=== PATIENT | female | born 1975 | race Caucasian/White ===

== ENCOUNTER 2020-12-22 13:04 | Emergency (ER) | payer MEDICAID, SELFPAY ==
[2020-12-22 13:05] VITALS: BP 124/79; PULSE 68; RESP 18; TEMP 36.8; O2SAT 100; BMI 24.7
[2020-12-22] MEDS: Ondansetron 4 MG/2 ML Vial IV (13:44)
[2020-12-22] MEDS: 0.9% Normal Saline 1,000 ML 1000 ML IV (13:44)
--- NOTE | 2020-12-22 13:54 | RAD_ITS ---
STUDY: X-RAY CHEST REASON FOR EXAM: Female, 45 years old. lump right side throat, feels like burning at back of neck, abdominal pain TECHNIQUE: AP COMPARISON: None. FINDINGS: EKG leads project over the chest. The lungs are clear and expanded. There is no demonstrated pleural abnormality. Normal size heart. Normal mediastinum and jennifer. Normal visualized pulmonary arteries. Normal visualized aortic arch and descending thoracic aorta. Normal visualized thoracic spine. Normal visualized ribs, clavicles, and shoulders. There is no demonstrated abnormality of the visualized soft tissue structures of the upper abdomen. RAD/Chest 1 View (Portable) IMPRESSION: Nonacute portable x-ray examination of the chest. Electronically Signed: Nico Burleson MD ([facility]) at 14:05 EST , Service support ,
[2020-12-22 13:57] LABS: Absolute Lymphocyte Count 3.18 X10^3/uL (0.83-4.51); Absolute Neutrophil Count 3.7 X10^3/uL (2.0-7.7); Basophil# 0.04 X10^3/uL; Basophil% 0.5 % (0-1); Eosinophil# 0.28 X10^3/uL; Eosinophils% 3.6 % (0-5); Hematocrit 40.5 % (37-47); Hemoglobin 13.2 g/dL (12.0-15.0); Lymphocyte # 3.18 X10^3/ul (4.0); Lymphocyte % 41.4 % (19-41); Mean Corp Hgb Conc 32.6 g/dL (32-36); Mean Corpuscular Hgb 33.1 pg (27.0-32.0); Mean Corpuscular Volume 101.5 fL (81-99); Mean Platelet Vol. 9.8 fl (6.2-12.0); Monocyte# 0.45 X10^3/uL; Monocyte% 5.9 % (0-10); NRBC Flagged by Analyzer 0 % (0-5); Neutrophil # 3.73 X10^3/uL (2.7-7.7); Neutrophil % 48.5 % (47-70); Platelet Count 291 K/mm3 (150-450); RBC Distribution Width CV 12.1 % (11.6-14.6); RBC Distribution Width SD 45.8 fl (35.1-43.9); Red Blood Count 3.99 M/mm3 (4.2-5.4); White Blood Count 7.7 K/mm3 (4.4-11.0)
[2020-12-22 14:13] LABS: ALB/GLOB Ratio 1.2 RATIO (0.9-2.4); AST(SGOT) 14 U/L (15-37); Alanine Aminotransfer ALT/SGPT 21 U/L (13-56); Albumin, Serum 3.9 g/dL (3.2-5.0); Alkaline Phosphatase 76 U/L (45-117); Anion Gap 4 (5-15); BUN 14 mg/dL (7-18); BUN/Creat Ratio 15.3 RATIO (10-20); Chloride 108 mmol/L (98-107); Creatinine, Serum 0.91 mg/dL (0.55-1.02); EST Glomerular Filtration Rate 70 mL/min (>60); Est Glom Filt Rate - Afr Amer 85 mL/min (>60); Estimated Creatinine Clearance 63.22 ml/min; Globulin 3.3 g/dL (2.2-4.2); Glucose 94 mg/dL (74-106); Lipase 213 U/L (73-393); Potassium 4.1 mmol/L (3.5-5.1); Protein, Total 7.2 g/dL (6.4-8.2); Sodium Level 139 mmol/L (136-145)
--- NOTE | 2020-12-22 14:19 | ED.VISSUMM ---
- ER Visit Summary Date of Service: 12/22/20 Chief Complaint: Cough and pain with swallowing History of Present Illness: The patient is a 45 F with no primary care physician. She reports that she has a cough that been present for the past 2 weeks. Is productive white/yellow sputum without blood. She denies fever or chills. She does report she has had sweats. Patient reports the right side of her throat feels raw. Patient reports that she has had intermittent abdominal pain over the past 2 weeks. She denies any pain at this time. She has been nausea and vomited once today. No blood in her emesis. No diarrhea. She denies any chest pain or shortness of breath. She denies any dysuria or frequency. Physical Examination: Vitals: Stable. Afebrile. General: Well-nourished and well-developed. Head: Normocephalic atraumatic. HEENT: No pharyngeal erythema, tonsillar exudate, or tonsillar enlargement. No cervical lymphadenopathy. Neck: Supple, no lymphadenopathy. No JVD. Nontender. Cardiovascular: Regular rate and rhythm. No murmurs. Respiratory: No respiratory distress. Clear to auscultation bilaterally. Abdominal: Soft, nontender, nondistended, normal bowel sounds. No guarding, rebound, or peritoneal signs. Back: Nontender. Extremities: Nontender, no edema. Skin: Normal color, no rash. Neurologic: Alert and oriented ?3. Cranial nerves II through XII are intact. Normal strength and sensation. Psych: Normal affect. Test Results: CBC shows lymphocytes 41. Chem-7 shows a chloride of 108. LFTs show an AST of 14. Lipase is 213. COVID-19 is negative. Clinical Impression(s) from Imaging Studies Chest X-Ray 12/22/20 13:54 IMPRESSION: Nonacute portable x-ray examination of the chest. Electronically Signed: Nico Burleson MD ([place]) at 14:05 EST , Service support , Emergency Department Course and Treatment: Patient had an IV placed. She was given a liter normal saline. She was given Zofran IV. She is resting comfortably. Treatment Plan: Patient be discharged instructions to follow-up with the [facility] in 1 week if not improving. Return to the emergency department for any worsening symptoms. Disposition: To home in improved and stable condition. Impression: 1. URI. This note was generated with [employer] dictation software. It may contain incorrect words, spelling, and punctuation that were not noted in review of the chart prior to signing ED Disposition - Plan for ED Patient: Instructions: ED URI, Viral, No Abx (Adult) Referrals: Eileen Dooley [NON-STAFF] - 1 Week if not improving
[2020-12-22 15:35] VITALS: BP 150/90; PULSE 63; RESP 16; O2SAT 100
== END 2020-12-22 15:43 | disposition home or self-care (01) ==
LOC: ED 14:13
PROVIDERS: Emergency Provider Emergency Medicine
DX: J06.9 Acute upper respiratory infection, unspecified (principal); Z72.0 Tobacco use
CPT/HCPCS: 71045; 80053; 83690; 85025; 87426; 96361; 96374; 99284; J7030; A4216; J2405

== ENCOUNTER 2025-04-09 16:25 | Emergency (ER) | payer MEDICAID, SELFPAY ==
[2025-04-09 16:27] VITALS: BP 105/85; PULSE 87; RESP 18; TEMP 36.3; O2SAT 99
--- OUTSIDE RECORDS SUMMARY | 2025-04-09 16:46 | XMS RPT_ITS | CCD ---
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 Vick Hobson Primary Care Robyn Smith, Dr. Vick Hobson Attending Robyn Smith, Dr. Vick Hobson Referring Robyn Smith, Dr. Vick Hobson Primary Care Robyn Smith, Dr. Vick Hobson Attending Robyn Smith, Dr. Vick Hobson Referring Robyn Smith, Dr. Vick Hobson Primary Care Robyn Smith, Dr. Vick Hobson Attending Robyn Smith, Dr. Vick Hobson Referring Robyn Pineda, Ms. Eloisa Swenson Primary Care Michell Smith, Dr. Vick Hobson Attending Robyn Pineda, Ms. Eloisa Swenson Primary Care Michell Smith, Dr. Vick Hobson Attending Eloisa Díaz Attending Unavailable Eloisa PINEDA Attending Unavailable DO Josee Sheridan Attending Unavaila Eloisa Estevez Attending Unavailable MI REYES APRN, CNP Primary Care Phys ician MRS. ELOISA PINEDA Attending Unavailable MI REYES APRN, CNP Primary Care U MI Reich APRN, CNP Attending U navMI Butt APRN, CNP Primary Care U MI Reich APRN, CNP Attending U MI Reich APRN, CNP [facility] Medications Current Medications Medication Drug Class(es) Dates Sig (Normalized) Sig (Original) busPIRone hydrochloride 15 mg oral tablet (5 sources) Start: 06-22-2024 take 1 tablet by mouth twice daily busPIRone 15 mg Tab 15 mg = 1 tab(s), Oral, BID, # 60 tab(s), Refills(s) 11, Pharmacy: [id number], 163, cm, 06/22/24 10:44:00 EDT, Height/Length Dosing, 66.2, kg, 06/22/24 10:44:00 EDT, Weight Dosing Start Date: 06/22/24 Status: Ordered Start: 04-23-2023 take 1 tablet by shanna th twice daily busPIRone 15 mg Tab 15 mg = 1 tab(s), Oral, BID, # 60 tab(s), Refills(s) 2, Pharmacy: [id number], 163, cm, 03/17/23 10:47:00 EDT, Height/Length Dosing, 68.9, kg, 03/17/23 10:47:00 EDT, Weight Dosing Start Date: 04/23/23 Status: Ordered clindamycin 300 mg oral capsule (1 source) Lincosamide Antibacterial Start: 03-17-2023 take 1 capsule by mouth every eight hours clindamycin 300 mg oral cap 300 mg = 1 cap(s), Oral, q8hr, # 30 cap(s), Refills(s) 0, Pharmacy: [facility] #[id number], 163, cm, 03/17/23 10:47:00 EDT, Height/Length Dosing, 68.9, kg, 03/17/23 10:47:00 EDT, Weight Dosing Start Date: 03/17/23 Status: Ordered dicyclomine hydrochloride 20 mg oral tablet (1 source) Anticholinergic Start: 08-19-2021 take 1 tablet by mouth every six hours dicyclomine 20 mg oral tablet ; 1 tab(s) orally every 6 hours Quantity: 20 Refills: 0 Ordered: 19-Aug-2021 Vidal oY Start: 19-Aug-2021 Generic Substitution Allowed Comments: May cause drowsiness. Alcohol may intensify this effect. Use care when operating dangerous machinery. Comment on above: May cause drowsiness . Alcohol may intensify this effect. Use care when operating dangerous machinery. gabapentin 300 mg oral capsule (12 sources) Anti-epileptic Agent Start: 04-23-2023 take 1 capsule by mouth twice daily gabapentin 300 mg Cap 300 mg = 1 cap(s), Oral, BID, 30 day supply, # 60 cap(s), Refills(s) 2, Pharmacy: [facility], 163, cm, 03/17/23 10:47:00 EDT, Height/Length Dosing, 68.9, kg, 03/17/23 10:47:00 EDT, Weight Dosing Start Date: 04/23/23 Status: Ordered Start: 02-24-2022 End: 10-17-2022 take 1 capsule by mouth at bedtime Gabapentin 300 MG Oral Capsule TAKE 1 CAPSULE AT BEDTIME. Quantity: 30 Refills: 5 Ordered: 20-Nov-2022 Vick Smith MD Start : 24-Feb-2022 Active hydrOXYzine hydrochloride 50 mg oral tablet (12 sources) Antihistamine Start: 04-23-2023 take 1 tablet by mouth twice daily as needed for anxiety hydrOXYzine hydrochloride 50 mg oral tablet 50 mg = 1 tab(s), Oral, BID, PRN as needed for anxiety, # 60 tab(s), Refills(s) 3, Pharmacy: [facility], 163, cm, 03/17/23 10:47:00 EDT, Height/Length Dosing, 68.9, kg, 03/17/23 10:47:00 EDT, Weight Dosing Start Date: 04/23/23 Status: Ordered Start: 09-25-2021 take 1 tablet by shanna th twice daily for anxiety hydrOXYzine HCl - 50 MG Oral Tablet take 1 tablet by mouth twice a day if needed for anxiety Quantity: 60 Refills: 3 Ordered: 20-Nov-2022 Vick Smith MD Start : 25-Sep-2021 Active levothyroxine sodium 0.075 mg oral tablet (10 sources) l-Thyroxine Start: 09-19-2024 End: 12-18-2024 levothyroxine 75 mcg (0.075 mg) oral tablet Dose : 75 mcg = 1 tab(s), Oral, qDay, # 30 tab(s), 2 Refill(s), Pharmacy: [facility], Hypothyroidism, adult, 158.5, cm, 09/19/24 14:29:00 EST, Height, kg, 09/19/24 14:29:00 EST, Dosing Weight Start Date: 09/19/24 Stop Date: 12/18/24 Status: Ordered Start: 06-22-2024 take 1 tablet by shanna th once daily levothyroxine 50 mcg (0.05 mg) Tab 50 mcg = 1 tab(s), Oral, Daily, # 90 tab(s), Refills(s) 3, Pharmacy: [facility], 163, cm, 06/22/24 10:44:00 EDT, Height/Length Dosing, 66.2, kg, 06/22/24 10:44:00 EDT, Weight Dosing Start Date: 06/22/24 Status: Ordered Start: 07-16-2023 take 1 tablet by shanna th once daily levothyroxine 50 mcg (0.05 mg) Tab 50 mcg = 1 tab(s), Oral, Daily, # 90 tab(s), Refills(s) 3, Pharmacy: [facility], 163, cm, 07/16/23 14:46:00 EDT, Height/Length Dosing, 66.5, kg, 07/16/23 14:46:00 EDT, Weight Dosing Start Date: 07/16/23 Status: Ordered Start: 03-17-2023 take 1 tablet by shanna th once daily levothyroxine 50 mcg (0.05 mg) Tab 50 mcg = 1 tab(s), Oral, Daily, Refills(s) 0 Start Date: 03/17/23 Status: Ordered Start: 11-21-2022 take 1 tablet by shanna th once daily Levothyroxine Sodium 50 MCG Oral Tablet TAKE 1 TABLET DAILY. Quantity: 30 Refills: 5 Ordered: 21-Nov-2022 Vick Smith MD Start : 21-Nov-2022 Active loratadine 10 mg oral tablet (4 sources) Start: 09-17-2022 take 1 tablet by mouth once daily loratadine 10 mg Tab 10 mg = 1 tab(s), Oral, Daily, # 30 tab(s), Refills(s) 11, Pharmacy: [facility] #[id number], 163, cm, 09/17/22 10:34:00 EST, Height/Length Dosing, 65.8, kg, 09/17/22 10:34:00 EST, Weight Dosing Start Date: 09/17/22 Status: Ordered meloxicam 15 mg oral tablet (12 sources) Nonsteroidal Anti-inflammatory Drug Start: 06-22-2024 take 1 tablet by mouth once daily meloxicam 15 mg Tab 15 mg = 1 tab(s), Oral, Daily, # 90 tab(s), Refills(s) 3, Pharmacy: [facility], 163, cm, 06/22/24 10:44:00 EDT, Height/Length Dosing, 66.2, kg, 06/22/24 10:44:00 EDT, Weight Dosing Start Date: 06/22/24 Status: Ordered Start: 07-16-2023 take 1 tablet by shanna th once daily meloxicam 15 mg Tab 15 mg = 1 tab(s), Oral, Daily, # 90 tab(s), Refills(s) 3, Pharmacy: [facility], 163, cm, 07/16/23 14:46:00 EDT, Height/Length Dosing, 66.5, kg, 07/16/23 14:46:00 EDT, Weight Dosing Start Date: 07/16/23 Status: Ordered Start: 09-25-2021 take 1 tablet by shanna th once daily Meloxicam 15 MG Oral Tablet take 1 tablet by mouth once daily Quantity: 30 Refills: 5 Ordered: 20-Nov-2022 Vick Smith MD Start : 25-Sep-2021 Active naproxen 500 mg oral tablet (1 source) Nonsteroidal Anti-inflammatory Drug Start: 08-19-2021 End: 08-28-2021 take 1 tablet by mouth twice daily at mealtime naproxen 500 mg oral tablet ; 1 tab(s) orally 2 times a day x 10 days Quantity: 20 Refills: 0 Ordered: 19-Aug-2021 Vidal Yo Start: 19-Aug-2021 End: 28-Aug-2021 Generic Substitution Allowed Comments: Check with your doctor before becoming .May cause drowsiness or dizziness.Obtain medical advice before taking any non-prescription drugs as some may affect the action of this medication.Take with food or milk. Comment on above: Check with your doctor before becoming p regnant.May cause drowsiness or dizziness.Obtain medical advice before taking any non-prescription drugs as some may affect the action of this medication.Take with food or milk. omeprazole 40 mg delayed release oral capsule (4 sources) Proton Pump Inhibitor Start: 06-22-2024 take 1 capsule by mouth once daily omeprazole 40 mg Cap-DR 40 mg = 1 cap(s), Oral, Daily, # 90 cap(s), Refills(s) 3, Pharmacy: [facility], 163, cm, 06/22/24 10:44:00 EDT, Height/Length Dosing, 66.2, kg, 06/22/24 10:44:00 EDT, Weight Dosing Start Date: 06/22/24 Status: Ordered Start: 07-16-2023 take 1 capsule by [facility] once daily omeprazole 40 mg Cap-DR 40 mg = 1 cap(s), Oral, Daily, # 90 cap(s), Refills(s) 0, Pharmacy: [facility], 163, cm, 07/16/23 14:46:00 EDT, Height/Length Dosing, 66.5, kg, 07/16/23 14:46:00 EDT, Weight Dosing Start Date: 07/16/23 Status: Ordered ondansetron 4 mg disintegrating oral tablet (1 source) Serotonin-3 Receptor Antagonist Start: 08-19-2021 take 1 tablet by mouth every eight hours ondansetron 4 mg oral tablet, disintegrating ; 1 tab(s) orally every 8 hours Quantity: 21 Refills: 0 Ordered: 19-Aug-2021 Vidal Yo Start: 19-Aug-2021 Generic Substitution Allowed rosuvastatin calcium 10 mg oral tablet (6 sources) HMG-CoA Reductase Inhibitor Start: 06-22-2024 take 1 tablet by mouth once daily rosuvastatin 10 mg Tab 10 mg = 1 tab(s), Oral, Daily, # 90 tab(s), Refills(s) 3, Pharmacy: [facility], 163, cm, 06/22/24 10:44:00 EDT, Height/Length Dosing, 66.2, kg, 06/22/24 10:44:00 EDT, Weight Dosing Start Date: 06/22/24 Status: Ordered Start: 07-16-2023 take 1 tablet by shanna th once daily rosuvastatin 10 mg Tab 10 mg = 1 tab(s), Oral, Daily, # 90 tab(s), Refills(s) 3, Pharmacy: [facility], 163, cm, 07/16/23 14:46:00 EDT, Height/Length Dosing, 66.5, kg, 07/16/23 14:46:00 EDT, Weight Dosing Start Date: 07/16/23 Status: Ordered Start: 03-17-2023 take 1 tablet by shanna th once daily rosuvastatin 10 mg Tab 10 mg = 1 tab(s), Oral, Daily, Refills(s) 0 Start Date: 03/17/23 Status: Ordered Start: 11-25-2022 take 1 tablet by shanna th once daily Rosuvastatin Calcium 10 MG Oral Tablet take 1 tablet by mouth once daily Quantity: 30 Refills: 5 Ordered: 25-Nov-2022 Vick Smith MD Start : 25-Nov-2022 Active sertraline 100 mg oral tablet (13 sources) Serotonin Reuptake Inhibitor Start: 06-22-2024 take 1 tablet by mouth once daily sertraline 100 mg Tab 100 mg = 1 tab(s), Oral, Daily, # 90 tab(s), Refills(s) 3, Pharmacy: [facility], 163, cm, 06/22/24 10:44:00 EDT, Height/Length Dosing, 66.2, kg, 06/22/24 10:44:00 EDT, Weight Dosing Start Date: 06/22/24 Status: Ordered Start: 07-16-2023 take 1 tablet by shanna th once daily sertraline 100 mg Tab 100 mg = 1 tab(s), Oral, Daily, Refills(s) 0 Start Date: 07/16/23 Status: Ordered Start: 04-23-2023 take 2 tablets by [facility] once daily sertraline 100 mg Tab 200 mg = 2 tab(s), Oral, Daily, # 60 tab(s), Refills(s) 5, Pharmacy: [facility], 163, cm, 03/17/23 10:47:00 EDT, Height/Length Dosing, 68.9, kg, 03/17/23 10:47:00 EDT, Weight Dosing Start Date: 04/23/23 Status: Ordered Start: 09-17-2022 take 1 tablet by shanna th once daily sertraline 100 mg Tab 100 mg = 1 tab(s), Oral, Daily, # 30 tab(s), Refills(s) 0, Pharmacy: [facility] #[id number], 163, cm, 09/17/22 10:34:00 EST, Height/Length Dosing, 65.8, kg, 09/17/22 10:34:00 EST, Weight Dosing Start Date: 09/17/22 Status: Ordered Start: 09-25-2021 take 1.5 tablets by mouth once daily Sertraline HCl - 100 MG Oral Tablet Take 1.5 tablet by mouth once daily Quantity: 45 Refills: 5 Ordered: 20-Nov-2022 Vick Smith MD Start : 25-Sep-2021 Active Start: 09-25-2021 take 1 tablet by shanna th once daily Sertraline HCl - 100 MG Oral Tablet take 1 tablet by mouth once daily Quantity: 0 Refills: 0 Ordered: 22-Jan-2022 DO Start : 25-Sep-2021 Active Completed/Discontinued Medications Medication Drug Class(es) Dates Sig (Normalized) Sig (Original) [id number] 200 actuat albuterol 0.09 mg/actuat metered dose inhaler (2 sources) beta2-Adrenergic Agonist Start: 09-23-2019 take 2 puff(s) by inhalation every four hours as needed Ventolin HFA 90 mcg/inh inhalation aerosol ; 2 puff(s) inhaled every 4 hours, As Needed Quantity: 1 Refills: 0 Ordered: 03-Oct-2019 Kenisha Crawford Start: 03-Oct-2019 Generic Substitution Allowed Comments: For inhalation only.It is very important that you take or use this exactly as directed. Do not skip doses or discontinue unless directed by your doctor.Obtain medical advice before taking any non-prescription drugs as some may affect the action of this medication.Shake well before use. Comment on above: For inhalation only. It is very important that you take or use this exactly as directed. Do not skip doses or discontinue unless directed by your doctor.Obtain medical advice before taking any non-prescription drugs as some may affect the action of this medication.Shake well before use. Albuterol (Eqv-ProAir HFA) 90 mcg/inh inhalation aerosol (1 source) Start: 09-17-2022 take 8.5 g by inhalation every six hours Albuterol (Eqv-ProAir HFA) 90 mcg/inh inhalation aerosol 180 mcg, 2 puff(s), Inhalation, q6hr Wheezing, 8.5 gm, Refill(s) 0, [facility] #[id number], 163, cm, 09/17/22 10:34:00 EST, Height/Length Dosing, 65.8, kg, 09/17/22 10:34:00 EST, Weight Dosing Start Date: 09/17/22 Status: Ordered benzonatate 200 mg oral capsule (1 source) Non-narcotic Antitussive Start: 09-23-2019 End: 09-29-2019 take 1 capsule by mouth three times daily benzonatate 200 mg oral capsule ; 1 cap(s) orally 3 times a day Quantity: 21 Refills: 0 Ordered: 23-Sep-2019 Kenisha Crawford Start: 23-Sep-2019 End: 29-Sep-2019 Status: Completed Generic Substitution Allowed Comments: May cause drowsiness. Alcohol may intensify this effect. Use care when operating dangerous machinery.Swallow whole. Do not crush. Comment on above: May cause drowsiness . Alcohol may intensify this effect. Use care when operating dangerous machinery.Swallow whole. Do not crush. doxycycline hyclate 100 mg oral capsule (2 sources) Tetracycline-class Drug Start: 09-23-2019 End: 10-09-2019 take 1 capsule by mouth twice daily doxycycline hyclate 100 mg oral capsule ; 1 cap(s) orally 2 times a day Quantity: 14 Refills: 0 Ordered: 03-Oct-2019 Kenisha Crawford Start: 03-Oct-2019 End: 09-Oct-2019 Status: Completed Generic Substitution Allowed Comments: Avoid prolonged or excessive exposure to direct and/or artificial sunlight while taking this medication.Do not take this drug if you are .Finish all this medication unless otherwise directed by prescriber.Medicat ion should be taken with plenty of water. Comment on above: Avoid prolonged or e xcessive exposure to direct and/or artificial sunlight while taking this medication.Do not take this drug if you are .Finish all this medication unless otherwise directed by prescriber.Medication should be taken with plenty of water. ibuprofen 600 mg oral tablet (1 source) Nonsteroidal Anti-inflammatory Drug Start: 09-23-2019 End: 09-29-2019 take 1 tablet by mouth every six hours IBU 600 mg oral tablet ; 1 tab(s) orally every 6 hours Quantity: 28 Refills: 0 Ordered: 23-Sep-2019 Kenisha Crawford Start: 23-Sep-2019 End: 29-Sep-2019 Status: Completed Generic Substitution Allowed Comments: Do not take this drug if you are .It is very important that you take or use this exactly as directed. Do not skip doses or discontinue unless directed by your doctor.May cause drowsiness or dizziness.Obtain medical advice before taking any non-prescription drugs as some may affect the action of this medication.Take with food or milk. Comment on above: Do not take this tashi g if you are .It is very important that you take or use this exactly as directed. Do not skip doses or discontinue unless directed by your doctor.May cause drowsiness or dizziness.Obtain medical advice before taking any non-prescription drugs as some may affect the action of this medication.Take with food or milk. pantoprazole 40 mg delayed release oral tablet (3 sources) Proton Pump Inhibitor Start: 11-20-2022 take 1 tablet by mouth once daily Pantoprazole Sodium 40 MG Oral Tablet Delayed Release TAKE 1 TABLET BY MOUTH EVERY DAY Quantity: 30 Refills: 1 Ordered: 20-Nov-2022 Vick Smith MD Start : 20-Nov-2022 Active predniSONE 20 mg oral tablet (2 sources) Start: 10-03-2019 End: 10-07-2019 take 1 tablet by mouth three times daily at mealtime predniSONE 20 mg oral tablet ; 1 tab(s) orally 3 times a day Quantity: 15 Refills: 0 Ordered: 03-Oct-2019 Kenisha Crawford Start: 03-Oct-2019 End: 07-Oct-2019 Status: Completed Generic Substitution Allowed Comments: It is very important that you take or use this exactly as directed. Do not skip doses or discontinue unless directed by your doctor.Obtain medical advice before taking any non-prescription drugs as some may affect the action of this medication.Take with food or milk. Start: 09-23-2019 End: 09-27-2019 take 1 tablet by mouth three times daily at mealtime predniSONE 20 mg oral tablet ; 1 tab(s) orally 3 times a day Quantity: 15 Refills: 0 Ordered: 23-Sep-2019 Kenisha Crawford Start: 23-Sep-2019 End: 27-Sep-2019 Status: Completed Generic Substitution Allowed Comments: It is very important that you take or use this exactly as directed. Do not skip doses or discontinue unless directed by your doctor.Obtain medical advice before taking any non-prescription drugs as some may affect the action of this medication.Take with food or milk. Comment on above: It is very important that you take or use this exactly as directed. Do not skip doses or discontinue unless directed by your doctor.Obtain medical advice before taking any non-prescription drugs as some may affect the action of this medication.Take with food or milk. Problems Active Problems Problem Classification Problem Date Documented Da te Episodic/Chronic Abdominal pain (3 sources) Abdominal pain; Translations: [Abdominal pain, unspecified site] 08-19-2021 Episodic Alcohol-related disorders (7 sources) Alcoholism; Translations: [Alcohol dependence] Onset: 4 02-04-2021 Chronic Anxiety disorders (12 sources) Generalized anxiety disorder; Translations: [Generalized anxiety disorder] 02-04-2021 Chronic Conditions associated with dizziness or vertigo (4 sources) Dizziness; Translations: [Dizziness and giddiness] Onset: 4 08-19-2021 Episodic Deficiency and other anemia (3 sources) Macrocytic anemia 09-19-2024 Episodic Deficiency and other anemia (2 sources) Nutritional anemia, unspecified; Translations: [Nutritional anemia, unspecified] Onset: 4 Episodic Diseases of mouth; excluding dental (1 source) Mucocele of mouth 03-17-2023 Episodic Disorders of lipid metabolism (1 source) Mixed hyperlipidemia; Translations: [Mixed hyperlipidemia] Chronic Esophageal disorders (6 sources) Gastroesophageal reflux disease without esophagitis; Translations: [Gastro-esophageal reflux disease without esophagitis] Onset: 3 Chronic Gastrointestinal hemorrhage (6 sources) Melena; Translations: [Melena] Onset: 3 Episodic Headache, including migraine (2 sources) Headache, including migraine Onset: 7 Mood disorders (15 sources) Depressive disorder; Translations: [Depressive disorder, not elsewhere classified] Onset: 3 02-04-2021 Chronic Mood disorders (1 source) Mood disorders Onset: 7 Nausea and vomiting (6 sources) Nausea and vomiting; Translations: [Nausea with vomiting, unspecified] Onset: 3 Episodic Nonmalignant breast conditions (19 sources) Lump of upper outer quadrant of breast; Translations: [Lump or mass in breast] Onset: 2 Episodic Nonspecific chest pain (5 sources) Right sided chest pain; Translations: [Chest pain, unspecified] 08-19-2021 Episodic Other acquired deformities (7 sources) Scoliosis deformity of spine; Translations: [Other kyphoscoliosis and scoliosis] Chronic Other connective tissue disease (2 sources) Pain in lower limb; Translations: [Pain in limb] 08-19-2021 Episodic Other connective tissue disease (7 sources) H/O: musculoskeletal disease; Translations: [Personal history of other musculoskeletal disorders] Episodic Other connective tissue disease (3 sources) Cramp in lower limb 09-19-2024 Episodic Other connective tissue disease (2 sources) Cramp and spasm; Translations: [Cramp and spasm] Onset: 4 Episodic Other eye disorders (1 source) Eye / vision finding 03-17-2023 Episodic Other gastrointestinal disorders (3 sources) Heartburn; Translations: [Heartburn] Episodic Other gastrointestinal disorders (2 sources) Constipation, unspecified; Translations: [Constipation, unspecified] Onset: 3 Episodic Other gastrointestinal disorders (4 sources) Constipation 07-16-2023 Episodic Other lower respiratory disease (4 sources) Dyspnea 03-17-2023 Episodic Other nutritional; endocrine; and metabolic disorders (1 source) Overweight in adulthood with body mass index of 25 or more but less than 30; Translations: [Body mass index (BMI) 25.0-25.9, adult] Onset: 3 Episodic Other screening for suspected conditions (not mental disorders or infectious disease) (11 sources) Patient encounter status; Translations: [Screening for lipoid disorders] Onset: 3 Episodic Other skin disorders (1 source) Neck swelling 02-04-2021 Episodic Other upper respiratory disease (7 sources) Allergic rhinitis; Translations: [Allergic rhinitis, unspecified] Onset: 2 Chronic Other upper respiratory infections (4 sources) Chronic sinusitis; Translations: [Chronic sinusitis, unspecified] Onset: 2 Chronic Otitis media and related conditions (1 source) Otitis media and related conditions Onset: 7 Ovarian cyst (7 sources) Cyst of ovary; Translations: [Other and unspecified ovarian cyst] Episodic Residual codes; unclassified (2 sources) Noncompliance with treatment; Translations: [Patient's noncompliance with other medical treatment and regimen due to unspecified reason] Onset: 4 Episodic Residual codes; unclassified (3 sources) Increased body mass index 09-19-2024 Episodic Spondylosis; intervertebral disc disorders; other back problems (13 sources) Degeneration of cervical intervertebral disc; Translations: [Prolapsed cervical intervertebral disc] Onset: 3 02-04-2021 Chronic Spondylosis; intervertebral disc disorders; other back problems (14 sources) Neck pain; Translations: [Cervicalgia] Onset: 3 02-04-2021 Episodic Substance-related disorders (9 sources) Smoker; Translations: [Nicotine dependence] Onset: 3 10-19-2015 Chronic Comment on above: Added secondary to d ocumentation in Social History. Thyroid disorders (16 sources) Acquired hypothyroidism; Translations: [Unspecified acquired hypothyroidism] Onset: 3 Chronic Unclassified (1 source) Muscle spasm of back / M62.830(ICD-9) Onset: 7 Unclassified (1 source) Tobacco use / Z72.0(ICD-9) Onset: 7 Unclassified (2 sources) Acute pharyngitis, unspecified / J02.9(ICD-9) Onset: 7 Unclassified (1 source) Cough / R05(ICD-9) Onset: 7 Unclassified (1 source) Low back pain / M54.5(ICD-9) Onset: 7 Unclassified (2 sources) CHEST PAIN OK TO REG PER PRISCILLA 08-19-2021 Comment on above: CHEST PAIN OK TO REG PER PRISCILLA Unclassified (15 sources) Patient encounter status 09-19-2024 Varicose veins of lower extremity (7 sources) Varicose veins of lower extremity; Translations: [Asymptomatic varicose veins] Episodic Past or Other Problems Problem Classification Problem Date Documented Da te Episodic/Chronic Headache, including migraine (1 source) Headache; Translations: [Headache] Onset: 09-28-2017 Episodic Other lower respiratory disease (1 source) Cough; Translations: [Cough] Onset: 09-28-2017 Episodic Other upper respiratory infections (1 source) Acute pharyngitis, unspecified; Translations: [Acute pharyngitis, unspecified] Onset: 09-28-2017 Episodic Results Test Name Value Interpretation Reference Range Facility US THYROIDon 09-25-2024 US THYROID ORIGINAL EXAMINATION: ULTRASOUND OF THE THYROID WITH COLOR DOPPLER FLOW [id number]/22/2024 11:44 am US THYROID COMPARISON: None TECHNIQUE: This report is based on interpretation of permanently recorded ultrasound images. HISTORY: ORDERING SYSTEM PROVIDED HISTORY: Reason for Exam: enlarged thyroid, difficult swallowing, patient is on thyroid medication by given history FINDINGS: RIGHT lobe: 4.2 x 1.5 x 1.2 cm. Volume 3.5 cc LEFT lobe: 2.1 x 0.7 x 0.7 cm. Volume 0.5 cc Isthmus is 0.1 cm. The gland is mildly heterogeneous throughout. There are innumerable punctate echogenic foci throughout the thyroid many of which have comet tail artifacts. These are considered benign.. Estimated total number of nodules greater than or equal to 1 cm: 0 Both lobes have multiple subcentimeter thyroid nodules of variable composition and echogenicity. These are considered too small for ACR TIRADS characterization and are considered benign by current guidelines. Inferior to the left lobe and adjacent to the left carotid artery there is an ovoid hypoechoic structure of 17 x 5 x 7 mm without central vascularity or a fatty hilum. IMPRESSION: The thyroid is smaller than usual probably in response to long-term thyroid medication. There is mild heterogeneity which may be reflection of previous thyroiditis. Multiple subcentimeter thyroid nodules are not considered suspicious by ACR TIRADS criteria, no follow-up is indicated by current guidelines. There is an ovoid hypoechoic structure adjacent to the left lobe near the large vessels. This is favored to be a lymph node which is statistically likely benign based on short axis measurement and no given history of malignancy in this patient. Evaluate further as clinically warranted. Short-term ultrasound follow-up in 3 months is an option. Interpreted by: Tae Mcclure MD Preliminary Report By: Tae Mcclure MD Electronically signed By Tae Mcclure MD Dictated Date: 09/25/2024 3:44:20 PM Prelim Date: 09/25/2024 3:50:38 PM Sign Date: 09/25/2024 3:50:38 PM Ordering Provider: MI SANTOS Normal [place] B12on 09-22-2024 Cobalamin (Vitamin B12) [Mass/Vol] 445 pg/mL Normal 211-911 [place] Comment on above: Performed By: #### M G, ESR #### [address] [address] #### B12, FOL, THYAB #### [place] [address] ESRon 09-22-2024 Erythrocyte Sed Rate 20 mm/hr Normal 0-30 [facility] Comment on above: Performed By: #### M G, ESR #### [address] [address] #### B12, FOL, THYAB #### [place] [address] FOLon 09-22-2024 Folate 5.82 ng/mL Normal 5.38-24.00 [place] Comment on above: Performed By: #### M G, ESR #### [place] [id number] #### B12, FOL, THYAB #### [place] [address] LABORATORYOrdered By: SYSTEM SYSTEM on 09-22-2024 Cobalamin (Vitamin B12) [Mass/Vol] 445 pg/mL Normal 211 - 911 pg/mL AH ADM SS Folate [Mass/Vol] 5.82 ng/mL Normal 5.38 - 24. 00 ng/mL AH ADM SS Magnesium [Mass/Vol] 2.0 mg/dL Normal 1.8 - 2 .4 mg/dL AO ADM SS Thyroglobulin Ab IA Qn 78 unit/mL High 15 - 60 unit/mL AH ADM SS Comment on above: Interpretive Data: * *Note - New Reference Range in effect 20 TPO Ab IA Qn 3548 unit/mL High 0 - 60 unit/mL AH ADM SS Comment on above: Interpretive Data: * *Note - New Reference Range in effect 20 LABORATORYOrdered By: Tequila Saxena on 09-22-2024 ESR Photometric method (Bld) [Velocity] 20 mm/hr Normal 0 - 30 mm/hr AO Man Heme SS MGon 09-22-2024 Magnesium [Mass/Vol] 2.0 mg/dL Normal 1.8-2.4 [facility] Comment on above: Performed By: #### M G, ESR #### [place] [address] #### B12, [facility], THYAB #### [place] [address] THYABon 09-22-2024 anti-Thyroid Peroxidase 3548 units/ml High 0-60 [place] Comment on above: Result Comment: No te - New Reference Range in effect 20 Performed By: #### M G, ESR #### [place] [address] #### B12, [facility], THYAB #### [place] [address] Thyroglobulin Ab 78 units/ml High 15-60 [place] Comment on above: Result Comment: No te - New Reference Range in effect 20 Performed By: #### M G, ESR #### [place] [address] #### B12, FOL, THYAB #### [place] [address] .Auto Diffon 09-15-2024 Basophil, Absolute 0.1 10 3/mcL Normal 0.0-0.2 [facility] Comment on above: Performed By: #### F T4, CMP, ANEU, TSHR, LIPID, ADIFF, GFR, CBC #### [address] [place] [address] Basophils/100 WBC (Bld) 1.1 % Normal 0.0-2.5 [place] Comment on above: Performed By: #### F T4, CMP, ANEU, TSHR, LIPID, ADIFF, GFR, CBC #### [address] [address] Eosinophil, Absolute 0.3 10 3/mcL Normal 0.0-0.7 [facility] Comment on above: Performed By: #### F T4, CMP, ANEU, TSHR, LIPID, ADIFF, GFR, CBC #### [address] [address] Eosinophils/100 WBC (Bld) 3.2 % Normal 0.0-7.0 [place] Comment on above: Performed By: #### F T4, CMP, ANEU, TSHR, LIPID, ADIFF, GFR, CBC #### [address] [address] Lymphocyte, Absolute 3.8 10 3/mcL Normal 0.9-4.3 [facility] Comment on above: Performed By: #### F T4, CMP, ANEU, TSHR, LIPID, ADIFF, GFR, CBC #### [address] [address] Lymphocytes/100 WBC (Bld) 39.0 % Normal 20.0-40.0 [place] Comment on above: Performed By: #### F T4, CMP, ANEU, TSHR, LIPID, ADIFF, GFR, CBC #### [address] [address] Monocyte, Absolute 0.8 10 3/mcL Normal 0.1-1.4 [facility] Comment on above: Performed By: #### F T4, CMP, ANEU, TSHR, LIPID, ADIFF, GFR, CBC #### [address] [address] Monocytes/100 WBC (Bld) 7.7 % Normal 2.0-13.0 [place] Comment on above: Performed By: #### F T4, CMP, ANEU, TSHR, LIPID, ADIFF, GFR, CBC #### [address] [address] Neutrophils/100 WBC (Bld) 49.0 % Low 50.0-75.0 [place] Comment on above: Performed By: #### F T4, CMP, ANEU, TSHR, LIPID, ADIFF, GFR, CBC #### [place] [address] [place], [place] [address] .GFRon 09-15-2024 GFR 80 ml/min/1.73sqm [facility] Comment on above: Result Comment: GFR Population mean for , Non- Americans Ages 20-29 = 116 mL/min/1.73 sq.m. Ages 30-39 = 107 mL/min/1.73 sq.m. Ages 40-49 = 99 mL/min/1.73 sq.m. Ages 50-59 = 93 mL/min/1.73 sq.m. Ages 60-69 = 85 mL/min/1.73 sq.m. Ages 70+ = 75 mL/min/1.73 sq.m. Chronic Kidney Disease: Less than 60 mL/min/1.73 square meters End Stage Renal Disease: Less than 15 mL/min/1.73 square meters Performed By: #### M G, ESR #### [address] [address] #### B12, FOL, THYAB #### [address] [address] GFR Non- 66 ml/min/1.73sqm [facility] Comment on above: Result Comment: GFR Population mean for , Non- Americans Ages 20-29 = 116 mL/min/1.73 sq.m. Ages 30-39 = 107 mL/min/1.73 sq.m. Ages 40-49 = 99 mL/min/1.73 sq.m. Ages 50-59 = 93 mL/min/1.73 sq.m. Ages 60-69 = 85 mL/min/1.73 sq.m. Ages 70+ = 75 mL/min/1.73 sq.m. Chronic Kidney Disease: Less than 60 mL/min/1.73 square meters End Stage Renal Disease: Less than 15 mL/min/1.73 square meters Performed By: #### M G, ESR #### [address] [address] #### B12, FOL, THYAB #### [place] [address] .NEUABSon 09-15-2024 Neutrophil, Absolute 4.8 10 3/mcL Normal 2.3-8.1 [facility] Comment on above: Performed By: #### F T4, CMP, ANEU, TSHR, LIPID, ADIFF, GFR, CBC #### [place] [id number] CBCon 09-15-2024 Erythrocyte distribution width (RBC) [Ratio] 14.6 % Normal 11.5-15.5 [place] Comment on above: Performed By: #### F T4, CMP, ANEU, TSHR, LIPID, ADIFF, GFR, CBC #### [place] [id number] Hematocrit (Bld) [Volume fraction] 39.9 % Normal 34.0-46.0 [place] Comment on above: Performed By: #### F T4, CMP, ANEU, TSHR, LIPID, ADIFF, GFR, CBC #### [address] [address] Hgb 13.0 G/dL Normal 12.0-16.0 [place] Comment on above: Performed By: #### F T4, CMP, ANEU, TSHR, LIPID, ADIFF, GFR, CBC #### [address] [address] MCH (RBC) [Entitic mass] 34.3 pg High 27.0-33.0 [place] Comment on above: Performed By: #### F T4, CMP, ANEU, TSHR, LIPID, ADIFF, GFR, CBC #### [place] [address] MCHC 32.6 G/dL Normal 32.0-36.0 [place] Comment on above: Performed By: #### F T4, CMP, ANEU, TSHR, LIPID, ADIFF, GFR, CBC #### [address] [address] MCV (RBC) [Entitic vol] 105.2 fL High 80.0-99.0 [place] Comment on above: Performed By: #### F T4, CMP, ANEU, TSHR, LIPID, ADIFF, GFR, CBC #### [address] [address] Platelet 292 10 3/mcL Normal 150-450 [place] Comment on above: Performed By: #### F T4, CMP, ANEU, TSHR, LIPID, ADIFF, GFR, CBC #### [address] [address] Platelet mean volume (Bld) [Entitic vol] 8.5 fL Normal 6.6-10.5 [place] Comment on above: Performed By: #### F T4, CMP, ANEU, TSHR, LIPID, ADIFF, GFR, CBC #### [address] [address] RBC 3.80 10 6/mcL Low 4.10-5.30 [place] Comment on above: Performed By: #### F T4, CMP, ANEU, TSHR, LIPID, ADIFF, GFR, CBC #### [address] [address] WBC 9.8 10 3/mcL Normal 4.5-10.8 [place] Comment on above: Performed By: #### F T4, CMP, ANEU, TSHR, LIPID, ADIFF, GFR, CBC #### [address] [address] CMPon 09-15-2024 Albumin Level 3.6 G/dL Normal 3.5-5.0 [place] Comment on above: Performed By: #### F T4, CMP, ANEU, TSHR, LIPID, ADIFF, GFR, CBC #### [address] [address] Albumin/Globulin [Mass ratio] 1.2 {ratio} Normal 1.1-2.5 [place] Comment on above: Performed By: #### F T4, CMP, ANEU, TSHR, LIPID, ADIFF, GFR, CBC #### [address] [address] ALP [Catalytic activity/Vol] 122 U/L Normal 40-135 [place] Comment on above: Performed By: #### F T4, CMP, ANEU, TSHR, LIPID, ADIFF, GFR, CBC #### [address] [address] ALT [Catalytic activity/Vol] 25 U/L Normal 14-59 [place] Comment on above: Performed By: #### F T4, CMP, ANEU, TSHR, LIPID, ADIFF, GFR, CBC #### [address] [address] AST [Catalytic activity/Vol] 29 U/L Normal 10-40 [place] Comment on above: Performed By: #### F T4, CMP, ANEU, TSHR, LIPID, ADIFF, GFR, CBC #### [address] [address] Bili Total 0.5 mg/dL Normal 0.2-1.0 [place] Comment on above: Result Comment: Use of this assay is not recommended for patients undergoing treatment with eltrombopag due to the potential for falsely elevated results. Performed By: #### F T4, CMP, ANEU, TSHR, LIPID, ADIFF, GFR, CBC #### [address] [address] BUN/Creatinine Ratio 9 ratio Normal 7-27 [facility] Comment on above: Performed By: #### F T4, CMP, ANEU, TSHR, LIPID, ADIFF, GFR, CBC #### [address] [address] Calcium [Mass/Vol] 9.4 mg/dL Normal 8.4-10.2 [facility] Comment on above: Performed By: #### F T4, CMP, ANEU, TSHR, LIPID, ADIFF, GFR, CBC #### [address] [address] Chloride [Moles/Vol] 105 mmol/L Normal 98-107 [facility] Comment on above: Performed By: #### F T4, CMP, ANEU, TSHR, LIPID, ADIFF, GFR, CBC #### [address] [address] CO2 [Moles/Vol] 29 mmol/L Normal 22-29 [place] Comment on above: Performed By: #### F T4, CMP, ANEU, TSHR, LIPID, ADIFF, GFR, CBC #### [address] [address] Creatinine [Mass/Vol] 0.90 mg/dL Normal 0.55-1.02 [facility] Comment on above: Result Comment: Test ing performed on Siemens Dimension EXL analyzer using a modified kinetic Logan technique. Performed By: #### F T4, CMP, ANEU, TSHR, LIPID, ADIFF, GFR, CBC #### [address] [address] Electrolyte Balance 9.0 mEq/L Normal 4.0-15.0 [facility] Comment on above: Performed By: #### F T4, CMP, ANEU, TSHR, LIPID, ADIFF, GFR, CBC #### [address] [address] Globulin 3.1 G/dL Normal [place] Comment on above: Performed By: #### F T4, CMP, ANEU, TSHR, LIPID, ADIFF, GFR, CBC #### [address] [address] Glucose [Mass/Vol] 100 mg/dL Normal 70-105 [facility] Comment on above: Performed By: #### F T4, CMP, ANEU, TSHR, LIPID, ADIFF, GFR, CBC #### [address] [address] Potassium [Moles/Vol] 4.4 mmol/L Normal 3.5-5.1 [facility] Comment on above: Performed By: #### F T4, CMP, ANEU, TSHR, LIPID, ADIFF, GFR, CBC #### [address] [address] Sodium [Moles/Vol] 143 mmol/L Normal 136-145 [facility] Comment on above: Performed By: #### F T4, CMP, ANEU, TSHR, LIPID, ADIFF, GFR, CBC #### [address] [address] Total Protein 6.7 G/dL Normal 6.4-8.2 [place] Comment on above: Performed By: #### F T4, CMP, ANEU, TSHR, LIPID, ADIFF, GFR, CBC #### [address] [address] Urea nitrogen [Mass/Vol] 8 mg/dL Normal 7-18 [place] Comment on above: Performed By: #### F T4, CMP, ANEU, TSHR, LIPID, ADIFF, GFR, CBC #### [address] [address] FT4on 09-15-2024 Free T4 [Mass/Vol] 0.83 ng/dL Normal 0.76-1.46 [facility] Comment on above: Order Comment: Order ed by Discern Performed By: #### M G, ESR #### [address] [address] #### B12, FOL, THYAB #### [address] [address] LABORATORYOrdered By: SYSTEM SYSTEM on 09-15-2024 Albumin BCP dye [Mass/Vol] 3.6 G/dL Normal 3.5 - 5.0 G/dL AO ADM SS Albumin/Globulin [Mass ratio] 1.2 {ratio} Normal 1.1 - 2.5 ratio AO ADM SS ALP [Catalytic activity/Vol] 122 U/L Normal 40 - 135 U/L AO ADM SS ALT With P-5'-P [Catalytic activity/Vol] 25 U/L Normal 14 - 59 U/L AO ADM SS AST With P-5'-P [Catalytic activity/Vol] 29 U/L Normal 10 - 40 U/L AO ADM SS Basophils (Bld) [#/Vol] 0.1 103/mcL Normal 0.0 - 0.2 10^3/mcL AO Workflow SS Basophils/100 WBC (Bld) 1.1 % Normal 0.0 - 2.5 % AO Workflow SS Bilirubin [Mass/Vol] 0.5 mg/dL Normal 0.2 - 1 .0 mg/dL AO ADM SS Comment on above: Interpretive Data: U se of this assay is not recommended for patients undergoing treatment with eltrombopag due to the potential for falsely elevated results. Calcium [Mass/Vol] 9.4 mg/dL Normal 8.4 - 10. 2 mg/dL AO ADM SS Chloride [Moles/Vol] 105 mmol/L Normal 98 - 10 7 mmol/L AO ADM SS CO2 [Moles/Vol] 29 mmol/L Normal 22 - 29 mmol/L AO ADM SS Creatinine [Mass/Vol] 0.90 mg/dL Normal 0.55 - 1.02 mg/dL AO ADM SS Comment on above: Interpretive Data: T esting performed on Siemens Dimension EXL analyzer using a modified kinetic Logan technique. Electrolyte Balance 9.0 mEq/L Normal 4.0 - 15 .0 mEq/L AO ADM SS Eosinophil, Absolute 0.3 103/mcL Normal 0.0 - 0 .7 10^3/mcL AO Workflow SS Eosinophils/100 WBC (Bld) 3.2 % Normal 0.0 - 7.0 % AO Workflow SS Erythrocyte distribution width (RBC) [Ratio] 14.6 % Normal 11.5 - 15.5 % AO Workflow SS Free T4 [Mass/Vol] 0.83 ng/dL Normal 0.76 - 1. 46 ng/dL AO ADM SS GFR/1.73 sq M.predicted among blacks MDRD (S/P/Bld) [Vol rate/Area] 80 ml/min/1.73sqm Invalid Interpretation Code AO Chemistry S Comment on above: Interpretive Data: GFR Population mean for , Non- Americans Ages 20-29 = 116 mL/min/1.73 sq.m. Ages 30-39 = 107 mL/min/1.73 sq.m. Ages 40-49 = 99 mL/min/1.73 sq.m. Ages 50-59 = 93 mL/min/1.73 sq.m. Ages 60-69 = 85 mL/min/1.73 sq.m. Ages 70+ = 75 mL/min/1.73 sq.m. Chronic Kidney Disease: Less than 60 mL/min/1.73 square meters End Stage Renal Disease: Less than 15 mL/min/1.73 square meters GFR/1.73 sq M.predicted among non-blacks MDRD (S/P/Bld) [Vol rate/Area] 66 ml/min/1.73sqm Invalid Interpretation Code AO Chemistry S Comment on above: Interpretive Data: GFR Population mean for , Non- Americans Ages 20-29 = 116 mL/min/1.73 sq.m. Ages 30-39 = 107 mL/min/1.73 sq.m. Ages 40-49 = 99 mL/min/1.73 sq.m. Ages 50-59 = 93 mL/min/1.73 sq.m. Ages 60-69 = 85 mL/min/1.73 sq.m. Ages 70+ = 75 mL/min/1.73 sq.m. Chronic Kidney Disease: Less than 60 mL/min/1.73 square meters End Stage Renal Disease: Less than 15 mL/min/1.73 square meters Globulin 3.1 G/dL Invalid Interpretation Code AO ADM SS Glucose [Mass/Vol] 100 mg/dL Normal 70 - 105 mg/dL AO ADM SS Hematocrit (Bld) [Volume fraction] 39.9 % Normal 34.0 - 46.0 % AO Workflow SS Hemoglobin (Bld) [Mass/Vol] 13.0 G/dL Normal 12.0 - 16.0 G/dL AO Workflow SS Lymphocytes (Bld) [#/Vol] 3.8 103/mcL Normal 0.9 - 4.3 10^3/mcL AO Workflow SS Lymphocytes/100 WBC (Bld) 39.0 % Normal 20.0 - 40.0 % AO Workflow SS MCH (RBC) [Entitic mass] 34.3 pg High 27.0 - 33.0 pg AO Workflow SS MCHC 32.6 G/dL Normal 32.0 - 36.0 G/dL AO Workflow SS MCV (RBC) [Entitic vol] 105.2 fL High 80.0 - 99.0 fL AO Workflow SS Monocytes (Bld) [#/Vol] 0.8 103/mcL Normal 0.1 - 1.4 10^3/mcL AO Workflow SS Monocytes/100 WBC (Bld) 7.7 % Normal 2.0 - 13.0 % AO Workflow SS Neutrophils (Bld) [#/Vol] 4.8 103/mcL Normal 2.3 - 8.1 10^3/mcL AO Workflow SS Neutrophils/100 WBC (Bld) 49.0 % Low 50.0 - 75.0 % AO Workflow SS Platelet mean volume (Bld) [Entitic vol] 8.5 fL Normal 6.6 - 10.5 fL AO Workflow SS Platelets (Bld) [#/Vol] 292 103/mcL Normal 150 - 450 10^3/mcL AO Workflow SS Potassium [Moles/Vol] 4.4 mmol/L Normal 3.5 - 5.1 mmol/L AO ADM SS Protein [Mass/Vol] 6.7 G/dL Normal 6.4 - 8.2 G/dL AO ADM SS RBC (Bld) [#/Vol] 3.80 106/mcL Low 4.10 - 5.3 0 10^6/mcL AO Workflow SS Sodium [Moles/Vol] 143 mmol/L Normal 136 - 145 mmol/L AO ADM SS TSH Qn 6.74 m[IU]/L High 0.36 - 3.74 mcIU/mL AO ADM SS Urea nitrogen [Mass/Vol] 8 mg/dL Normal 7 - 18 mg/dL AO ADM SS Urea nitrogen/Creatinine [Mass ratio] 9 ratio Normal 7 - 27 ratio AO ADM SS WBC (Bld) [#/Vol] 9.8 103/mcL Normal 4.5 - 10.8 10^3/mcL AO Workflow SS LABORATORYOrdered By: Magdiel Hill on 09-15-2024 Cholesterol [Mass/Vol] 205 mg/dL High 0 - 200 mg/dL AO ADM SS Comment on above: Interpretive Data: C holesterol Reference Interval: Less than 200 Desirable 200-239 Borderline high risk 240 and above High risk Cholesterol in HDL [Mass/Vol] 70 mg/dL High 40 - 60 mg/dL AO ADM SS Cholesterol in LDL [Mass/Vol] 112 mg/dL Normal 0 - 130 mg/dL AO ADM SS Triglyceride [Mass/Vol] 117 mg/dL Normal 0 - 150 mg/dL AO ADM SS Comment on above: Interpretive Data: T riglyceride Reference Interval: Less than 150 Normal 150-199 Borderline high risk 200-499 High risk 500 or higher Very high risk LIPIDon 09-15-2024 Cholesterol [Mass/Vol] 205 mg/dL High 0-200 [place] Comment on above: Result Comment: Chol esterol Reference Interval: Less than 200 Desirable 200-239 Borderline high risk 240 and above High risk Performed By: #### M G, ESR #### [place] [address] #### B12, FOL, THYAB #### [address] [address] Cholesterol in HDL [Mass/Vol] 70 mg/dL High 40-60 [place] Comment on above: Performed By: #### Miguel G, ESR #### [place] [address] #### B12, FOL, THYAB #### [address] [address] Cholesterol in LDL [Mass/Vol] 112 mg/dL Normal 0-130 [place] Comment on above: Performed By: #### Miguel G, ESR #### [place] [address] #### B12, FOL, THYAB #### [address] [address] Triglyceride [Mass/Vol] 117 mg/dL Normal 0-150 [place] Comment on above: Result Comment: Trig lyceride Reference Interval: Less than 150 Normal 150-199 Borderline high risk 200-499 High risk 500 or higher Very high risk Performed By: #### M G, ESR #### [place] [address] #### B12, FOL, THYAB #### [address] [address] TSHRon 09-15-2024 TSH Qn 6.74 m[IU]/L High 0.36-3.74 [place] Comment on above: Performed By: #### F T4, CMP, ANEU, TSHR, LIPID, ADIFF, GFR, CBC #### [place] [address] [place], [place] [address] Ambulatory Visit Summaryon 0 06-22-2024 Ambulatory Visit Summary Ambulatory Visit Summary TONYA LAW :1975 Visit Date:06/22/2024 Ambulatory Visit Instructions Your Diagnosis Non-compliance Cervical disc disorder at C5-C6 level with radiculopathy Dizziness and giddiness Constipation Nausea & vomiting Blood in stool GERD (gastroesophageal reflux disease) Hypothyroidism Alcoholism MDD (major depressive disorder), recurrent episode, moderate Smoker Breast cancer screening by mammogram Screening for lipid disorders Screening for iron deficiency anemia Screening for diabetes mellitus Tests Performed MA Mamm Screen w/CAD if perf and 3D Jovanni -- Results Pending -- US Carotid Duplex Bilateral -- Results Pending -- Please visit your patient portal for your results or contact your primary care physician. Your Care Team Attending Physician - Eloisa PINEDA CNP Primary Care Physician - Eloisa PINEDA CNP This Is Your Medications List busPIRone (busPIRone 15 mg Tab) levothyroxine (levothyroxine 50 mcg (0.05 mg) Tab) meloxicam (meloxicam 15 mg Tab) omeprazole (omeprazole 40 mg Cap-DR) rosuvastatin (rosuvastatin 10 mg Tab) sertraline (sertraline 100 mg Tab) [Image Removed: STOP]Stop taking these medications gabapentin (gabapentin 300 mg Cap) Procedures Performed Hysterectomy (2007), Cholecystectomy (1994). Discharge Vitals Heart Rate (Peripheral) 64 Blood Pressure 138/88 Height 163 cm Height 64 in Weight 66.2 kg Weight 145.64 lb BMI 24.92 What to do next Someone Will Contact You Regarding These Appointments [facility] External Ambulatory Referral, Patient choice/referral by family/friend, Gastroenterology, Elton Ferreira in [place], 06/22/24 11:02:00 EDT, Constipation Nausea & vomiting Blood in stool [facility] External Ambulatory Referral, Geographic proximity, Pain Management, [place] area, 06/22/24 11:12:00 EDT, Cervical disc disorder at C5-C6 level with radiculopathy Medications What How Much When Why Instructions Unchanged busPIRone (busPIRone 15 mg Tab) 1 Tablets By Mouth 2 times a day Pickup at [facility] Unchanged levothyroxine (levothyroxine 50 mcg (0.05 mg) Tab) 1 Tablets By Mouth Every day Pickup at [facility] Unchanged meloxicam (meloxicam 15 mg Tab) 1 Tablets By Mouth Every day Pickup at [facility] 181 Unchanged omeprazole (omeprazole 40 mg Cap-DR) 1 Capsules By Mouth Every day GERD (gastroesophageal reflux disease) Pickup at [facility] 181 Unchanged rosuvastatin (rosuvastatin 10 mg Tab) 1 Tablets By Mouth Every day Pickup at [facility] 181 Unchanged sertraline (sertraline 100 mg Tab) 1 Tablets By Mouth Every day Pickup at [facility] 181 Pharmacy Information [facility] 1811: [id number] [place], [place] [id number] [phone] What How Much When Comments Stop Taking gabapentin (gabapentin 300 mg Cap) 1 Capsules By Mouth 2 times a day 30 day supply Allergies No Known Allergies Problems Ongoing - Any problem that you are currently receiving treatment for. Alcoholism Blood in stool Cervical disc disorder at C5-C6 level with radiculopathy Cervical disc herniation Chronic allergic rhinitis Constipation DDD (degenerative disc disease), cervical Dizziness and giddiness GERD (gastroesophageal reflux disease) Hypothyroidism MDD (major depressive disorder), recurrent episode, moderate Nausea & vomiting Non-compliance Smoker Patient Survey You may receive a survey via text or e-mail asking about your office visit. Please share your experience with us by completing your survey. We appreciate your feedback and thank you for choosing us for your care. Normal [facility] Family Medicine Office/Clini c Noteon 06-22-2024 Family Medicine Office/Clinic Note Family Medicine Office/Clinic Note HPI Staff Pt is here today with c/o sharp pain on both sides of her neck and groin area. States the pain shoots up into her head and down her legs. States it feels like her veins are clogged. She does have dizziness at times. She will sometimes feel like shes slipping while standing. Pt is also also c/o SOB, CP and dizziness with exertion. States walking up and down stairs really affects her. She is asking to get her heart checked out. Pt would like to discuss GI referral. States she is always constipated, states the only way she has a BM is if she takes a laxative. She also sees blood in her stool. Dr. Elton Ferreira in [place]. Fasting Labs - Outside orders placed and printed. Mamm - Outside order placed. Pap - Last pap and Hysterectomy in 2007. She is unsure if she has a cervix. History of Present Illness Tonya Law is a 49-year-old female presenting today with multiple complaints. She has a very lengthy history of noncompliance, psychiatric issues, and challenging relationships. I see her sporadically. She lives in [place] but visits this area often to see a friend while her boyfriend is working. She usually never follows through with any of the testing or things I ordered for her complaints. I last saw her in the office in 07/2023 for multiple complaints. She complained of constipation, nausea, vomiting, and blood in stool along with GERD. At that time, I referred her to GI. She obviously never went as today, she is requesting GI referral. I ordered a low-dose CT of her lungs as she's a chronic smoker. She never got that done. Ordered a mammogram and fasting labs back at that 07/2023 visit also and again she never did any of that. She did get a MRI of her cervical spine back in 2020 at [facility] showed degenerative changes at C5-C6 and C6-C7. No significant or severe cervical spinal canal stenosis noted. She has a known history of alcoholism and major depression. She likes to be at home and does not want to go outside. She is currently on buspirone and Zoloft as needed for her psychiatric conditions. Her mood is stable, and she does not feel down, depressed, hopeless, or have thoughts of self-harm. However, she experienced a severe panic attack on her way here and tends to startle easily. She does not feel anxious while listening to her radio at home. She has chronic neck and back pain. She was continued on Mobic and gabapentin and was referred to pain management last year, but it appears she did not follow through with the referral. I never got any consult notes from anybody. She continues to fill her gabapentin sporadically, with the last 30-day supply filled on 07/27/2023 and another on 04/18/2024. She experiences neck pain on both sides, occasionally radiating to her head, described as electric and lightning-like. She also has pain radiating to the front of her thighs, stopping above her knees. She had sciatic nerve pain on the right side last week, which has not fully healed, and she does not have full pressure on the right side. Imaging of her lumbar spine revealed slight scoliosis. She experiences severe neuropathy in her feet but does not believe gabapentin is effective. She takes meloxicam for arthritis. She has a history of hypothyroidism and is on levothyroxine 50 mcg daily. According to her external fill history, she fills the levothyroxine, but not consistently enough to take it daily, sometimes with gaps of up to six months. She reports overall good health but continues to experience similar issues as last year. She does not eat a lot and eats breakfast around noon and dinner at 6 PM with occasional snacking in between. Her diet consists of eggs and toast for breakfast, home-cooked dinners, and occasional snacks. She consumes vegetables and fiber-rich foods, drinks water, and three cups of coffee in the morning. She consumes a couple of cocktails daily. She continues to experience blood in her stool and occasionally uses laxatives, which aid in bowel movements. Her reflux and vomiting have improved since starting medication. She occasionally takes her cholesterol medication. She experiences dizziness to the point where she almost blacks out. She describes it as falling in hole. Review of Systems All other systems are negative except as stated in the HPI. Physical Exam Vitals & Measurements HR: 64(Peripheral) BP: 138/88 SpO2: 100% HT: 64 in HT: 163 cm WT: 66.2 kg WT: 145.64 lb BMI: 24.92 Patient appears well and normal self. Weight is stable. Neck is supple, no masses, no goiters, no cervical adenopathy, no carotid bruit. Neck range of motion is within normal limits in all directions. Lungs are normal. Heart is normal. Paraspinal tenderness is present in the bilateral C4-C7 region. No bony tenderness or step-off is noted. No bilateral lower extremity edema. Deep tendon reflexes are 2 + and equal bilateral patellar. Gait and balance are normal. Grossly neurologically intact. Mental st (more content not included)... Normal [facility] Comment on above: Result Comment: Elec tronically Signed By: Eloisa PINEDA CNP\.johnny\Date and Time Signed: 06/22/24 14:23 EDT\.br\Electronically Co-Signed By: Tamera Vance.johnny\Date and Time Co-Signed: 06/22/24 13:54 EDT Provider Letteron 06-06-2024 Provider Letter Provider Letter June 06, 2024 TONYA DUCK [address] [place] [address] : 1975 Dear Tonya, We have been trying to reach you with no success. It is important that you return our call upon receiving this letter. Also, at the time of your call, please provide us with your current information. Thank you for your prompt attention to this matter. Sincerely, [facility] Patient Educationon 10-20-20 Patient Education Pulmonary Medicine Steps to Quit Smoking Smoking tobacco is the leading cause of preventable . It can affect almost every organ in the body. Smoking puts you and those around you at risk for developing many serious chronic diseases. Quitting smoking can be very challenging. Do not get discouraged if you are not successful the first time. Some people need to make many attempts to quit before they achieve long-term success. Do your best to stick to your quit plan, and talk with your health care provider if you have any questions or concerns. How do I get ready to quit? When you decide to quit smoking, create a plan to help you succeed. Before you quit: ? Pick a date to quit. Set a date within the next 2 weeks to give you time to prepare. ? Write down the reasons why you are quitting. Keep this list in places where you will see it often. ? Tell your family, friends, and co-workers that you are quitting. Support from people you are close to can make quitting easier. ? Talk with your health care provider about your options for quitting smoking. ? Find out what treatment options are covered by your health insurance. ? Identify people, places, things, and activities that make you want to smoke (triggers). Avoid them. What first steps can I take to quit smoking? ? Throw away all cigarettes at home, at work, and in your car. ? Throw away smoking accessories, such as ashtrays and lighters. ? Clean your car. Make sure to empty the ashtray. ? Clean your home, including curtains and carpets. What strategies can I use to quit smoking? Talk with your health care provider about combining strategies, such as taking medicines while you are also receiving in-person counseling. Using these two strategies together makes you more likely to succeed in quitting than if you used either strategy on its own. If you are or , talk with your health care provider about finding counseling or other support strategies to quit smoking. Do not take medicine to help you quit smoking unless your health care provider tells you to. Quit right away ? Quit smoking completely, instead of gradually reducing how much you smoke over a period of time. Stopping smoking right away may be more successful than gradually quitting. ? Attend in-person counseling to help you build problem-solving skills. You are more likely to succeed in quitting if you attend counseling sessions regularly. Even short sessions of 10 minutes can be effective. Take medicine You may take medicines to help you quit smoking. Some medicines require a prescription. You can also purchase [id number]-[id number] medicines. Medicines may have nicotine in them to replace the nicotine in cigarettes. Medicines may: ? Help to stop cravings. ? Help to relieve withdrawal symptoms. Your health care provider may recommend: ? Nicotine patches, gum, or lozenges. ? Nicotine inhalers or sprays. ? Non-nicotine medicine that you take by mouth. Find resources Find resources and support systems that can help you quit smoking and remain smoke-free after you quit. These resources are most helpful when you use them often. They include: ? Online chats with a counselor. ? Telephone quitlines. ? Printed self-help materials. ? Support groups or group counseling. ? Text messaging programs. ? Mobile phone apps or applications. Use apps that can help you stick to your quit plan by providing reminders, tips, and encouragement. Examples of free services include Quit Guide from the CDC and smokefree.gov What can I do to make it easier to quit? ? Reach out to your family and friends for support and encouragement. Call telephone quitlines, such as 1-889-TVQA-NOW, reach out to support groups, or work with a counselor for support. ? Ask people who smoke to avoid smoking around you. ? Avoid places that trigger you to smoke, such as bars, parties, or smoke-break areas at work. ? Spend time with people who do not smoke. ? Lessen the stress in your life. Stress can be a smoking trigger for some people. To lessen stress, try: ? Exercising regularly. ? Doing deep-breathing exercises. ? Doing yoga. ? Meditating. What benefits will I see if I quit smoking? Over time, you should start to see positive results, such as: ? Improved sense of smell and taste. ? Decreased coughing and sore throat. ? Slower heart rate. ? Lower blood pressure. ? Clearer and healthier skin. ? The ability to breathe more easily. ? Fewer sick days. Summary ? Quitting smoking can be very challenging. Do not get discouraged if you are not successful the first time. Some people need to make many attempts to quit before they achieve long-term success. ? When you decide to quit smoking, create a plan to help you succeed. ? Quit smoking right away, not slowly over a period of time. ? Find resources and support systems that can help you quit smoki (more content not included)... Normal [facility] Insurance Correspondenceon 1 Insurance Correspondence [id number]. [id number] [facility] Provider Letteron 07-28-2023 Provider Letter July 21, 2023 TONYA LAW [address] [place] [id number] : 1975 Dear Tonya , We have been trying to reach you with no success. It is important that you return our call regarding your referral to our office by Katelyn upon receiving this letter. Also, at the time of your call, please provide us with your current information. Thank you for your prompt attention to this matter. Sincerely, [facility] [phone] Unable to contact letter has come back twice stating Not Deliverable as Addressed Address matches in registration to what is attempted to be mailed out. [facility] Family Medicine Office/Clini c Noteon 07-22-2023 Family Medicine Office/Clinic Note Chief Complaint Routine f/u HPI Staff Cervical DDD - Med agreement due at next routine f/u. Pt is c/o pain/ache in her right chest area through to her back, states she is SOB at times. States she is nauseous every morning when she wakes up. Vomits bile in the morning. Pt is asking for imaging of her lungs. Refills - Levothyroxine, Mobic, Rosuvastatin. Mamm - Has been over a year, last done [place]. Order is in, pt will schedule at check out to have done at [facility]. Pap - Hysterectomy 2007 Colon Cancer Screen - Pt has bloody stool on occasion, would like GI referral. Fasting Labs - Will have fasting labs done with her Mamm. CMP, Lipids and TSH ordered. The standard range for ages 18 and older is >=18.5 and < 25 kg/m2. Your BMI today was above this range, this falls in the overweight to obese category and there are medical benefits to weight loss. We can offer counselling, referral, and/or medical support in addressing this problem. Your BMI and weight management will be followed at subsequent visits. We strongly recommend to quit tobacco use. Cigarette smoking harms nearly every organ of the body, causes many diseases, and reduces the health of smokers in general. Quitting smoking lowers your risk for smoking-related diseases and can add years to your life. We encourage you to visit www.smokefree.gov access to helpful resources including free telephone support. If you decide on prescription treatment to help you quit, we would be happy to provide these. History of Present Illness Tonya Law presents today with complaints of chest pressure, shortness of breath, and nausea. I saw her in 03/2023. She had multiple complaints at that time and needed refills of a lot of medications. I had not seen her prior to this since 03/2021. She was supposed to return for a 2-month follow-up, but did not. She is requesting a GI referral today. The patient states that when she stands up, she gets a shock and her legs will go down. She gets dizzy and she walks in the bynum for no reason. It is all on the right side of her chest and torso, and it radiates through the back. She states that it duncan throughout the whole middle back. She states that there is something under her armpit. her arm cramps up really bad like she is having a heart attack. She states that she has been coughing up phlegm. She has smoked for over 30 years, and usually smokes 1 pack a day. Now, she has cut back to a half a pack of cigarettes a day. The patient states that her neck is bothering her more than normal. She feels like she is congested, but she is not congested. She gets short of breath sometimes. If she stands up and goes to walk, everything gets real dizzy and then it starts going black. She denies wheezing and chest pain on the left side. The patient states that her hemorrhoids are out of control. She has not been able to use the bathroom right. On occasion, it will come out and it will be full of blood. She is constipated. The patient states that she vomits every morning. She states that there is so much yellow acid that it is horrible. She will not feel better until she gets up. She states that she has heartburn at night and then she ends up vomiting. She cannot sleep in her bed because she has to sit up. The patient states that she has restless legs. She is kicking. It is mostly at night when she gets all of the aches. She states that this is constant. Her lower back just started kicking out. She states that she was put on Mobic and it started feeling better. She states that she started cracking it. She has degenerative disc in her neck with a herniated disc. It was found 2.5 years ago. She did not see pain management and get epidurals. She would like to see pain management for her neck and maybe discuss about getting an epidural injection. She states that she has been smoking CBD and it helps. She cuts the Zoloft in half. She takes her gabapentin, thyroid, and cholesterol medications, and BuSpar on occasion. Review of Systems All other systems are negative except as stated in the HPI. Physical Exam Vitals & Measurements HR: 69(Peripheral) BP: 126/87 SpO2: 100% HT: 64 in HT: 163 cm WT: 66.5 kg WT: 146.3 lb BMI: 25.03 Vital signs within normal limits x4. General: Well developed, well nourished, in no acute distress Lungs: Normal respiratory effort and clear to auscultation. Good air expansion. No crackles, wheezing, or rhonchi. Cardio: Regular rate and rhythm, normal S1 and S2, no murmur, no rub Abdomen: Soft, nontender. No hepatosplenomegaly. Musculoskeletal: Patient has reproducible right-sided chest pain at the costovertebral junction between 2nd and 4th right-sided ribs. Also cervical paraspinal tenderness significant at the C4-C7 region. No bony tenderness or step-off noted. Neck crepitus with range of motion is noted. Range of motion, however, is normal. Right-sided hand grasp is 50% as strong as the left. Extremity: No bilateral lower extremity edema. Mental Status: (more content not included)... Normal [facility] Comment on above: Result Comment: Elec tronically Signed By: Eloisa PINEDA CNP\.br\Date and Time Signed: 07/22/23 12:52 EDT\.br\Electronically Co-Signed By: Raymond Velázquez\.br\Date and Time Co-Signed: 07/16/23 18:23 EDT Ambulatory Visit Summaryon 0 07-16-2023 Ambulatory Visit Summary SIRISHA TONYA M :1975 Visit Date:07/16/2023 Ambulatory Visit Instructions Your Diagnosis DDD (degenerative disc disease), cervical Cervical disc disorder at C5-C6 level with radiculopathy Nausea & vomiting Constipation Blood in stool GERD (gastroesophageal reflux disease) Smoker BMI 25.0-25.9,adult Breast cancer screening by mammogram Your Care Team Attending Physician - Eloisa PINEDA CNP Primary Care Physician - Eloisa PINEDA CNP This Is Your Medications List levothyroxine (levothyroxine 50 mcg (0.05 mg) Tab) meloxicam (meloxicam 15 mg Tab) omeprazole (omeprazole 40 mg Cap-DR) rosuvastatin (rosuvastatin 10 mg Tab) Contact prescribing physician if questions or concerns busPIRone (busPIRone 15 mg Tab) gabapentin (gabapentin 300 mg Cap) hydrOXYzine (hydrOXYzine hydrochloride 50 mg oral tablet) sertraline (sertraline 100 mg Tab) Procedures Performed Hysterectomy (2007), Cholecystectomy (1994). Discharge Vitals Heart Rate (Peripheral) 69 Blood Pressure 126/87 Height 163 cm Height 64 in Weight 66.5 kg Weight 146.3 lb BMI 25.03 What to do next Scheduled Follow-Up Appointments Thursday 11:45 AM EDT With: Where: [facility] 2022 2:20 PM EDT With: Eloisa PINEDA CNP Where: [facility] Patient Educationon 07-16-20 Patient Education Gastroenterology Obesity, Adult Obesity is having too much body fat. Being obese means that your weight is more than what is healthy for you. BMI (body mass index) is a number that explains how much body fat you have. If you have a BMI of 30 or more, you are obese. Obesity can cause serious health problems, such as: ? Stroke. ? Coronary artery disease (CAD). ? Type 2 diabetes. ? Some types of cancer. ? High blood pressure (hypertension). ? High cholesterol. ? Gallbladder stones. Obesity can also contribute to: ? Osteoarthritis. ? Sleep apnea. ? Infertility problems. What are the causes? ? Eating meals each day that are high in calories, sugar, and fat. ? Drinking a lot of drinks that have sugar in them. ? Being born with genes that may make you more likely to become obese. ? Having a medical condition that causes obesity. ? Taking certain medicines. ? Sitting a lot (having a sedentary lifestyle). ? Not getting enough sleep. What increases the risk? ? Having a family history of obesity. ? Living in an area with limited access to: ? [place], recreation centers, or sidewalks. ? Healthy food choices, such as grocery stores and [place]. What are the signs or symptoms? The main sign is having too much body fat. How is this treated? Treatment for this condition often includes changing your lifestyle. Treatment may include: ? Changing your diet. This may include making a healthy meal plan. ? Exercise. This may include activity that causes your heart to beat faster (aerobic exercise) and strength training. Work with your doctor to design a program that works for you. ? Medicine to help you lose weight. This may be used if you are not able to lose one pound a week after 6 weeks of healthy eating and more exercise. ? Treating conditions that cause the obesity. ? Surgery. Options may include gastric banding and gastric bypass. This may be done if: ? Other treatments have not helped to improve your condition. ? You have a BMI of 40 or higher. ? You have life-threatening health problems related to obesity. Follow these instructions at home: Eating and drinking ? Follow advice from your doctor about what to eat and drink. Your doctor may tell you to: ? Limit fast food, sweets, and processed snack foods. ? Choose low-fat options. For example, choose low-fat milk instead of whole milk. ? Eat five or more servings of fruits or vegetables each day. ? Eat at home more often. This gives you more control over what you eat. ? Choose healthy foods when you eat out. ? Learn to read food labels. This will help you learn how much food is in one serving. ? Keep low-fat snacks available. ? Avoid drinks that have a lot of sugar in them. These include soda, fruit juice, iced tea with sugar, and flavored milk. ? Drink enough water to keep your pee (urine) pale yellow. ? Do not go on fad diets. Physical activity ? Exercise often, as told by your doctor. Most adults should get up to 150 minutes of moderate-intensity exercise every week.Ask your doctor: ? What types of exercise are safe for you. ? How often you should exercise. ? Warm up and stretch before being active. ? Do slow stretching after being active (cool down). ? Rest between times of being active. Lifestyle ? Work with your doctor and a food expert (dietitian) to set a weight-loss goal that is best for you. ? Limit your screen time. ? Find ways to reward yourself that do not involve food. ? Do not drink alcohol if: ? Your doctor tells you not to drink. ? You are , may be , or are planning to become . ? If you drink alcohol: ? Limit how much you have to: ? 0?1 drink a day for women. ? 0?2 drinks a day for men. ? Know how much alcohol is in your drink. In the [place] one drink equals one 12 oz bottle of beer (355 mL), one 5 oz glass of wine (148 mL), or one 1? oz glass of hard liquor (44 mL). General instructions ? Keep a weight-loss journal. This can help you keep track of: ? The food that you eat. ? How much exercise you get. ? Take eine-jdm-rkjjymf and prescription medicines only as told by your doctor. ? Take vitamins and supplements only as told by your doctor. ? Think about joining a support group. ? Pay attention to your mental health as obesity can lead to depression or self esteem issues. ? Keep all follow-up visits. Contact a doctor if: ? You cannot meet your weight-loss goal after you have changed your diet and lifestyle for 6 weeks. ? You are having trouble breathing. Summary ? Obesity is having too much body fat. ? Being obese means that your weight is more than what is healthy for you. ? Work with your doctor to set a weight-loss goal. ? Get regular exercise as told by your doctor. This information is not intended to replace advice given to you by your health care provider. Make sure you discuss any questions you have with yo (more content not included)... Normal [facility] CBC AND DIFFERENTIALon 11-20 % AUTOMATED IMMATURE GRAN 0.2 % Normal 0.0 - 0.9 [facility] Comment on above: Result Comment: Anayeli ture Granulocyte Count (IG) includes promyelocytes, myelocytes and metamyelocytes but does not include bands. Percent differential counts (%) should be interpreted in the context of the absolute cell counts (cells/L). Performed By: #### C BCDF #### [address] [id number] Basophils (Bld) [#/Vol] 0.06 10*3/uL Normal 0.00 - 0.10 [facility] Comment on above: Performed By: #### C BCDF #### [address] [id number] Basophils/100 WBC (Bld) 0.7 % Normal 0.0 - 2.0 [facility] Comment on above: Performed By: #### C BCDF #### [address] [id number] Eosinophils (Bld) [#/Vol] 0.33 10*3/uL Normal 0.00 - 0.70 [facility] Comment on above: Performed By: #### C BCDF #### [address] [id number] Eosinophils/100 WBC (Bld) 3.7 % Normal 0.0 - 6.0 [facility] Comment on above: Performed By: #### C BCDF #### [address] [id number] Erythrocyte distribution width (RBC) [Ratio] 14.1 % Normal 11.5 - 14.5 [facility] Comment on above: Performed By: #### C BCDF #### [address] [id number] Hematocrit (Bld) [Volume fraction] 38.7 % Normal 36.0 - 46.0 [facility] Comment on above: Performed By: #### C BCDF #### [address] [id number] Hemoglobin (Bld) [Mass/Vol] 12.5 g/dL Normal 12.0 - 16.0 [facility] Comment on above: Performed By: #### C BCDF #### [address] [id number] Lymphocytes (Bld) [#/Vol] 3.59 10*3/uL Normal 1.20 - 4.80 [facility] Comment on above: Performed By: #### C BCDF #### [address] [id number] Lymphocytes/100 WBC (Bld) 40.1 % Normal 13.0 - 44.0 [facility] Comment on above: Performed By: #### C BCDF #### [address] [id number] MCHC (RBC) [Mass/Vol] 32.3 g/dL Normal 32.0 - 36.0 [facility] Comment on above: Performed By: #### C BCDF #### [address] [id number] MCV (RBC) [Entitic vol] 101 fL High 80 - 100 [facility] Comment on above: Performed By: #### C BCDF #### [address] [id number] Monocytes (Bld) [#/Vol] 0.72 10*3/uL Normal 0.10 - 1.00 [facility] Comment on above: Performed By: #### C BCDF #### [address] [id number] Monocytes/100 WBC (Bld) 8.0 % Normal 2.0 - 10.0 [facility] Comment on above: Performed By: #### C BCDF #### [address] [id number] Neutrophils (Bld) [#/Vol] 4.24 10*3/uL Normal 1.20 - 7.70 [facility] Comment on above: Performed By: #### C BCDF #### [address] [id number] Neutrophils/100 WBC (Bld) 47.3 % Normal 40.0 - 80.0 [facility] Comment on above: Performed By: #### C BCDF #### [address] [id number] Platelets (Bld) [#/Vol] 351 10*3/uL Normal 150 - 450 [facility] Comment on above: Performed By: #### C BCDF #### [address] [id number] RBC 3.84 x10E12/L Low 4.00 - 5.20 [facility] Comment on above: Performed By: #### C BCDF #### [address] [id number] WBC (Bld) [#/Vol] 9.0 10*3/uL Normal 4.4 - 11.3 [facility] Comment on above: Performed By: #### C BCDF #### [address] [id number] COMPREHENSIVE PANELon 2022 Albumin [Mass/Vol] 4.6 g/dL Normal 3.4 - 5.0 [facility] Comment on above: Performed By: #### C MP #### [address] [place] [id number] ALP [Catalytic activity/Vol] 73 U/L Normal 33 - 110 [facility] Comment on above: Performed By: #### C MP #### [address] [id number] ALT [Catalytic activity/Vol] 12 U/L Normal 7 - 45 [facility] Comment on above: Result Comment: Jordana ents treated with Sulfasalazine may generate falsely decreased results for ALT. Performed By: #### C MP #### [address] [id number] Anion gap [Moles/Vol] 11 mmol/L Normal 10 - 20 [facility] Comment on above: Performed By: #### C MP #### [address] [id number] AST [Catalytic activity/Vol] 21 U/L Normal 9 - 39 [facility] Comment on above: Performed By: #### C MP #### [address] [id number] Bilirubin [Mass/Vol] 0.3 mg/dL Normal 0.0 - 1.2 [facility] Comment on above: Performed By: #### C MP #### [address] [id number] Calcium [Mass/Vol] 9.6 mg/dL Normal 8.6 - 10.3 [facility] Comment on above: Performed By: #### C MP #### [address] [id number] Chloride [Moles/Vol] 102 mmol/L Normal 98 - 107 [facility] Comment on above: Performed By: #### C MP #### [address] [id number] Creatinine [Mass/Vol] 0.92 mg/dL Normal 0.50 - 1.05 [facility] Comment on above: Performed By: #### C MP #### [address] [id number] GFR/1.73 sq M.predicted among non-blacks MDRD (S/P/Bld) [Vol rate/Area] 76 mL/min/{1.73_m2} Normal >90 [facility] Comment on above: Result Comment: CALC ULATIONS OF ESTIMATED GFR ARE PERFORMED USING THE 2020 CKD-EPI STUDY REFIT EQUATION WITHOUT THE RACE VARIABLE FOR THE IDMS-TRACEABLE CREATININE METHODS. https://jasn.asnjournals.org/content/early/ASN.988401 2994 Performed By: #### C MP #### [address] [id number] Glucose [Mass/Vol] 97 mg/dL Normal 74 - 99 [facility] Comment on above: Performed By: #### C MP #### [address] [id number] HCO3 (Bld) [Moles/Vol] 29 mmol/L Normal 21 - 32 [facility] Comment on above: Performed By: #### C MP #### [address] [id number] Potassium [Moles/Vol] 4.2 mmol/L Normal 3.5 - 5.3 [facility] Comment on above: Performed By: #### C MP #### [address] [id number] Protein [Mass/Vol] 7.3 g/dL Normal 6.4 - 8.2 [facility] Comment on above: Performed By: #### C MP #### [address] [id number] Sodium [Moles/Vol] 138 mmol/L Normal 136 - 145 [facility] Comment on above: Performed By: #### C MP #### [address] [id number] Urea nitrogen [Mass/Vol] 13 mg/dL Normal 6 - 23 [facility] Comment on above: Performed By: #### C MP #### [address] [id number] Complete Blood Count + Diffjanak mcbride 11-20-2022 Basophils/100 WBC (Bld) 0.7 % 0.0 - 2.0 [facility] Work Phone: Erythrocyte distribution width (RBC) [Ratio] 14.1 % See Below [facility] Work Phone: Comment on above: Reference Range: 11. 5 - 14.5 Hematocrit (Bld) [Volume fraction] 38.7 % See Below [facility] Work Phone: Comment on above: Reference Range: 36. 0 - 46.0 Hemoglobin (Bld) [Mass/Vol] 12.5 g/dL See Below [facility] Work Phone: Comment on above: Reference Range: 12. 0 - 16.0 Lymphocytes/100 WBC (Bld) 40.1 % See Below [facility] Work Phone: Comment on above: Reference Range: 13. 0 - 44.0 MCHC (RBC) [Mass/Vol] 32.3 g/dL See Below [facility] 100 Work Phone: Comment on above: Reference Range: 32. 0 - 36.0 MCV (RBC) [Entitic vol] 101 fL above high threshold 80 - 100 [facility] Work Phone: Monocytes/100 WBC (Bld) 8.0 % 2.0 - 10.0 [facility] Work Phone: Neutrophils/100 WBC (Bld) 47.3 % See Below [facility] Work Phone: Comment on above: Reference Range: 40. 0 - 80.0 Platelets (Bld) [#/Vol] 351 10*3/uL 150 - 450 [facility] Work Phone: RBC (Bld) [#/Vol] 3.84 {x10E12/L} below low threshold See Below [facility] Work Phone: Comment on above: Reference Range: 4.0 0 - 5.20 WBC (Bld) [#/Vol] 9.0 10*3/uL 4.4 - 11.3 [facility] Work Phone: Complete Blood Count + Differential 0.06 {x10E9/L} See Below [facility] Work Phone: Comment on above: Reference Range: 0.0 0 - 0.10 Complete Blood Count + Differential 0.33 {x10E9/L} See Below [facility] Work Phone: Comment on above: Reference Range: 0.0 0 - 0.70 Complete Blood Count + Differential 0.72 {x10E9/L} See Below [facility] Work Phone: Comment on above: Reference Range: 0.1 0 - 1.00 Complete Blood Count + Differential 3.59 {x10E9/L} See Below [facility] Work Phone: Comment on above: Reference Range: 1.2 0 - 4.80 Complete Blood Count + Differential 4.24 {x10E9/L} See Below [facility] Work Phone: Comment on above: Reference Range: 1.2 0 - 7.70 Complete Blood Count + Differential 3.7 % 0.0 - 6.0 [facility] Work Phone: Complete Blood Count + Differential 0.2 % 0.0 - 0.9 [facility] Work Phone: Comment on above: Immature Granulocyte Count (IG) includes promyelocytes, myelocytes and metamyelocytes but does not include bands. Percent differential counts (%) should be interpreted in the context of the absolute cell counts (cells/L). LIPID PANEL (CORONARY RISK 2 )on 11-20-2022 Cholesterol [Mass/Vol] 236 mg/dL High 0 - 199 [facility] Comment on above: Result Comment: . AGE DESIRABLE BORDERLINE HIGH HIGH 0-19 Y 0 - 169 170 - 199 >/= 200 20-24 Y 0 - 189 190 - 224 >/= 225 >24 Y 0 - 199 200 - 239 >/= 240 All ranges are based on fasting samples. Specific therapeutic targets will vary based on patient-specific cardiac risk. . Pediatric guidelines reference:Pediatrics 2011, 128(S5). Adult guidelines reference: NCEP ATPIII Guidelines, AMINA 2001, 258:2486-97 . Venipuncture immediately after or during the administration of Metamizole may lead to falsely low results. Testing should be performed immediately prior to Metamizole dosing. Performed By: #### L IPID #### [address] [id number] Cholesterol in HDL [Mass/Vol] 76.6 mg/dL Normal [facility] Comment on above: Result Comment: . AGE VERY LOW LOW NORMAL HIGH 0-19 Y < 35 < 40 40-45 ---- 20-24 Y ---- < 40 >45 ---- >24 Y ---- < 40 40-60 >60 . Performed By: #### L IPID #### [address] [id number] Cholesterol in LDL [Mass/Vol] 143 mg/dL High 0 - 99 [facility] Comment on above: Result Comment: . NEAR BORD AGE DESIRABLE OPTIMAL HIGH HIGH VERY HIGH 0-19 Y 0 - 109 --- 110-129 >/= 130 ---- 20-24 Y 0 - 119 --- 120-159 >/= 160 ---- >24 Y 0 - 99 100-129 130-159 160-189 >/=190 . Performed By: #### L IPID #### [address] [id number] Cholesterol in VLDL [Mass/Vol] 16 mg/dL Normal 0 - 40 [facility] Comment on above: Performed By: #### L IPID #### [address] [id number] Cholesterol.total/Cho lesterol in HDL [Mass ratio] 3.1 {ratio} Normal [facility] Comment on above: Result Comment: REF VALUES DESIRABLE < 3.4 HIGH RISK > 5.0 Performed By: #### L IPID #### [address] [id number] Triglyceride [Mass/Vol] 82 mg/dL Normal 0 - 149 [facility] Comment on above: Result Comment: . AGE DESIRABLE BORDERLINE HIGH HIGH VERY HIGH 0 D-90 D 19 - 174 ---- ---- ---- 91 D- 9 Y 0 - 74 75 - 99 >/= 100 ---- 10-19 Y 0 - 89 90 - 129 >/= 130 ---- 20-24 Y 0 - 114 115 - 149 >/= 150 ---- >24 Y 0 - 149 150 - 199 200- 499 >/= 500 . Venipuncture immediately after or during the administration of Metamizole may lead to falsely low results. Testing should be performed immediately prior to Metamizole dosing. Performed By: #### L IPID #### [address] [id number] Laboratory - Chemistry and C hemistry - challengeon 11-20-2022 Albumin BCP dye [Mass/Vol] 4.6 g/dL 3.4 - 5.0 [facility] Work Phone: ALP [Catalytic activity/Vol] 73 U/L 33 - 110 [facility] Work Phone: ALT With P-5'-P [Catalytic activity/Vol] 12 U/L 7 - 45 [facility] Work Phone: Comment on above: Patients treated wit h Sulfasalazine may generate falsely decreased results for ALT. Anion gap [Moles/Vol] 11 mmol/L 10 - 20 [facility] 100 Work Phone: AST With P-5'-P [Catalytic activity/Vol] 21 U/L 9 - 39 [facility] Work Phone: Bilirubin [Mass/Vol] 0.3 mg/dL 0.0 - 1.2 [facility] 100 Work Phone: Calcium [Mass/Vol] 9.6 mg/dL 8.6 - 10.3 [facility] Work Phone: Chloride [Moles/Vol] 102 mmol/L 98 - 107 [facility] 100 Work Phone: CO2 [Moles/Vol] 29 mmol/L 21 - 32 [facility] 100 Work Phone: Creatinine [Mass/Vol] 0.92 mg/dL See Below [facility] 100 Work Phone: Comment on above: Reference Range: 0.5 0 - 1.05 Glucose [Mass/Vol] 97 mg/dL 74 - 99 [facility] Work Phone: Potassium [Moles/Vol] 4.2 mmol/L 3.5 - 5.3 [facility] 100 Work Phone: Protein [Mass/Vol] 7.3 g/dL 6.4 - 8.2 [facility] Work Phone: Sodium [Moles/Vol] 138 mmol/L 136 - 145 [facility] Work Phone: TSH Qn 8.18 m[IU]/L above high threshold See Below [facility] Work Phone: Comment on above: Reference Range: 0.4 4 - 3.98 TSH testing is performed using different testing methodology at [facility] than at other [facility]. Direct result comparisons should only be made within the same method. Urea nitrogen [Mass/Vol] 13 mg/dL 6 - 23 [facility] Work Phone: Lipid Panelon 11-20-2022 Cholesterol [Mass/Vol] 236 mg/dL above high threshold 0 - 199 [facility] Work Phone: Comment on above: . AGE DESIRABLE BORD ARTI HIGH HIGH 0-19 Y 0 - 169 170 - 199 >/= 200 20-24 Y 0 - 189 190 - 224 >/= 225 >24 Y 0 - 199 200 - 239 >/= 240 All ranges are based on fasting samples. Specific therapeutic targets will vary based on patient-specific cardiac risk.. Pediatric guidelines reference:Pediatrics 2011, 128(S5). Adult guidelines reference: NCEP ATPIII Guidelines, AMINA 2001, 258:2486-97. Venipuncture immediately after or during the administration of Metamizole may lead to falsely low results. Testing should be performed immediately prior to Metamizole dosing. Cholesterol in HDL [Mass/Vol] 76.6 mg/dL [facility] Work Phone: Comment on above: . AGE VERY LOW LOW N ORMAL HIGH 0-19 Y < 35 < 40 40-45 ---- 20- 24 Y ---- < 40 >45 ---- >24 Y ---- < 40 40-60 >60. Cholesterol in LDL [Mass/Vol] 143 mg/dL above high threshold 0 - 99 [facility] Work Phone: Comment on above: . NEAR BORD AGE JESSIE RABLE OPTIMAL HIGH HIGH VERY HIGH 0-19 Y 0 - 109 --- 110-129 >/= 130 ---- 20-24 Y 0 - 119 --- 120-159 >/= 160 ---- >24 Y 0 - 99 100-129 130-159 160-189 >/=190. Cholesterol.total/Cho lesterol in HDL [Mass ratio] 3.1 {ratio} [facility] Work Phone: Comment on above: REF VALUESDESIRABLE < 3.4HIGH RISK > 5.0 Triglyceride [Mass/Vol] 82 mg/dL 0 - 149 [facility] Work Phone: Comment on above: . AGE DESIRABLE BORD ARTI HIGH HIGH VERY HIGH 0 D-90 D 19 - 174 ---- ---- ----91 D- 9 Y 0 - 74 75 - 99 >/= 100 ---- 10-19 Y 0 - 89 90 - 129 >/= 130 ---- 20-24 Y 0 - 114 115 - 149 >/= 150 ---- >24 Y 0 - 149 150 - 199 200- 499 >/= 500. Venipuncture immediately after or during the administration of Metamizole may lead to falsely low results. Testing should be performed immediately prior to Metamizole dosing. Lipid Panel 16 mg/dL 0 - 40 [facility] Work Phone: No Panel Informationon 11-20 76 {mL/min/1.73m2} >90 [facility] Work Phone: Comment on above: CALCULATIONS OF PAULETTE MATED GFR ARE PERFORMED USING THE 2020 CKD-EPI STUDY REFIT EQUATION WITHOUT THE RACE VARIABLE FOR THE IDMS-TRACEABLE CREATININE METHODS.https://jasn.asnjournals.org/content// N.0015713708 T4 - Free Thyroxine, Serumon 11-20-2022 Free T4 [Mass/Vol] 0.54 ng/dL below low threshold See Below [facility] Work Phone: Comment on above: Reference Range: 0.6 1 - 1.12 Thyroxine Free testing is performed using different testing methodology at [facility] than at other [facility]. Direct result comparisons should only be made within the same method.. Biotin can cause falsely elevated free T4 results. Patients taking a Biotin dose of up to 10 mg/day should refrain from taking Biotin for 24 hours before sample collection. Patient taking a Biotin dose of >10 mg/day should consult with their physician or the laboratory before the blood draw. THYROXINE,FREEon 11-20-2022 THYROXINE,FREE 0.54 ng/dL Low 0.61 - 1.12 [facility] [place] Comment on above: Result Comment: Thyr oxine Free testing is performed using different testing methodology at [facility] than at other [facility]. Direct result comparisons should only be made within the same method. . Biotin can cause falsely elevated free T4 results. Patients taking a Biotin dose of up to 10 mg/day should refrain from taking Biotin for 24 hours before sample collection. Patient taking a Biotin dose of >10 mg/day should consult with their physician or the laboratory before the blood draw. Performed By: #### T 4FRE #### [address] [id number] TSH WITH REFLEX TO FREE T4 I F ABNORMALon 11-20-2022 TSH Qn 8.18 m[IU]/L High 0.44 - 3.98 [facility] [place] Comment on above: Result Comment: TSH testing is performed using different testing methodology at [facility] than at other [facility]. Direct result comparisons should only be made within the same method. Performed By: #### T HYDS #### [address] [id number] Tobacco Screening.on 023 Adult depression screening assessment No [facility] Work Phone: Fall risk assessment c) Not medically indicated [facility] Work Phone: Tobacco use status CPHS a) Yes [facility] 100 Work Phone: Tobacco Screening. Yes [facility] Work Phone: DIGITAL DIAG MAMM BILAT WITH TOMOon 02-26-2022 DIGITAL DIAG MAMM BILAT WITH DEJUAN Patient Name: TONYA LAW STUDY: BREAST ULTRASOUND; DIGITAL DIAG MAMM BILAT WITH DEJUAN; 02/26/2022 2:55 pm; 02/26/2022 2:15 pm ACCESSION NUMBER(S): [id number]; [id number]; [id number] ORDERING CLINICIAN: VICK SMITH INDICATION: [id number]; lump on right breast getting worse N63.11: Mass of upper outer quadrant of right breast. COMPARISON: 12/13/2018. 12/02/2018. FINDINGS: MAMMOGRAPHY: 2D and tomosynthesis images were reviewed at 1 mm slice thickness. The breast tissue is heterogeneously dense, which may obscure small masses. There is focal asymmetry in the anterior right breast which is also apparent and stable when compared to previous examinations. This does correspond to the palpable abnormality. No suspicious findings on the left. ULTRASOUND: A targeted sonogram was performed by registered mellowing machine operator in the area of palpable abnormality in the right breast and in the area of palpable abnormality in the left breast. Right breast: Heterogeneous fibroglandular tissue corresponding the palpable abnormality. No suspicious mass. Just deep to this there is a simple cyst measuring 4 mm. Left breast: No solid or cystic lesion corresponding to the palpable abnormality. IMPRESSION: No mammographic evidence of malignancy. BI-RADS CATEGORY: Category: 2 - Benign. Recommendation: 1 Year Screening. For any future breast imaging appointments, please call [phone] ([phone]). Electronically signed by: KARELY BRAVO MD Normal [facility] No Panel Informationon 02-26 Please click on the link to view the study images Normal [facility] Work Phone: Please click on the link to view the study images Normal [facility] Work Phone: Normal [facility] Work Phone: Radiologyon 02-26-2022 MG Breast Diagnostic Normal [facility] 100 Work Phone: SPINE, ENTIRE THORACIC/LUMBA R, INCLUDE SKULL, CERVICAL AND SACRAL SPINE WHEN PERFORMED ONE VIEWon 02-26-2022 SPINE, ENTIRE THORACIC/LUMBAR, INCLUDE SKULL, CERVICAL AND SACRAL SPINE WHEN PERFORMED ONE VIEW Patient Name: TONYA LAW STUDY: SPINE, ENTIRE THORACIC/LUMBAR, INCLUDE SKULL, CERVICAL AND SACRAL SPINE WHEN PERFORMED ONE VIEW INDICATION: low back pain Z87.39: History of scoliosis. COMPARISON: None ACCESSION NUMBER(S): [id number] ORDERING CLINICIAN: VICK SMITH FINDINGS: Minimal S shaped thoracic and lumbar scoliosis. No subluxation. No fracture seen. Mild milky level midthoracic degenerative change. IMPRESSION: Minimal scoliosis. Mild multilevel midthoracic degenerative change. Electronically signed by: DYLAN CORONADO MD Normal [facility] ULTRASOUND LIMITED BREASTon 02-26-2022 ULTRASOUND LIMITED BREAST Patient Name: TONYA LAW STUDY: BREAST ULTRASOUND; DIGITAL DIAG MAMM BILAT WITH DEJUAN; 02/26/2022 2:55 pm; 02/26/2022 2:15 pm ACCESSION NUMBER(S): [id number]; [id number]; [id number] ORDERING CLINICIAN: VICK SMITH INDICATION: [id number] [id number]; lump on right breast getting worse N63.11: Mass of upper outer quadrant of right breast. COMPARISON: 12/13/2018. 12/02/2018. FINDINGS: MAMMOGRAPHY: 2D and tomosynthesis images were reviewed at 1 mm slice thickness. The breast tissue is heterogeneously dense, which may obscure small masses. There is focal asymmetry in the anterior right breast which is also apparent and stable when compared to previous examinations. This does correspond to the palpable abnormality. No suspicious findings on the left. ULTRASOUND: A targeted sonogram was performed by registered mellowing machine operator in the area of palpable abnormality in the right breast and in the area of palpable abnormality in the left breast. Right breast: Heterogeneous fibroglandular tissue corresponding the palpable abnormality. No suspicious mass. Just deep to this there is a simple cyst measuring 4 mm. Left breast: No solid or cystic lesion corresponding to the palpable abnormality. IMPRESSION: No mammographic evidence of malignancy. BI-RADS CATEGORY: Category: 2 - Benign. Recommendation: 1 Year Screening. For any future breast imaging appointments, please call [phone] ([phone]). Electronically signed by: KARELY BRAVO MD Normal [facility] US PELVIS TRANSABDOMINAL WIT H TRANSVAGINALon 02-26-2022 US PELVIS TRANSABDOMINAL WITH TRANSVAGINAL Patient Name: TONYA LAW STUDY: US PELVIS TRANSABDOMINAL WITH TRANSVAGINAL 02/26/2022 3:42 pm INDICATION: 46 y/o F with lump on right breast getting worse N83.299: Other ovarian cyst. History of hysterectomy. COMPARISON: None. ACCESSION NUMBER(S): [id number] ORDERING CLINICIAN: VICK SMITH TECHNIQUE: Grayscale imaging, color Doppler, and spectral Doppler were utilized. Transabdominal and endovaginal images were obtained. FINDINGS: URINARY BLADDER: Unremarkable. UTERUS: Surgically removed. No pelvic mass. RIGHT OVARY: Unable to identify the right ovary. No gross right adnexal mass. LEFT OVARY: Unable to identify the left ovary. No gross left adnexal mass. FREE FLUID: None. IMPRESSION: Previous hysterectomy. Unable to identify either ovary in this exam. No pelvic mass or fluid collection in this exam. Electronically signed by: BOAZ BLACKMON MD Normal [facility] Ultrasound Limited [place] 02-26-2022 MG Breast Screening Normal [facility] 100 Work Phone: Office Visiton 02-24-2022 Follow-up visit Diagnoses/Problems Generalized anxiety disorder (300.02) (F41.1) Depression (311) (F32.A) Neck pain (723.1) (M54.2) Other ovarian cyst (620.2) (N83.299) Other form of scoliosis of thoracolumbar spine (737.39) (M41.85) Varicose veins of both lower extremities, unspecified whether complicated (454.9) (I83.93) Orders Generalized anxiety disorder Complete Blood Count + Differential; Status:Active - Retrospective Authorization; Requested for:[id number]; Comprehensive Metabolic Panel; Status:Active - Retrospective Authorization; Requested for:[id number]; Mass of upper outer quadrant of right breast Mamm Digital Diagnostic Mammography Unilateral Right w/ Dejuan; Status:Hold For - Scheduling,Retrospecti ve Authorization; Requested for:[id number]; Laterality : Right Radiologist to Determine Optimal Study : Y What are the patient's signs and symptoms? : lump on right breast getting worse Neck pain Start: Gabapentin 300 MG Oral Capsule; TAKE 1 CAPSULE AT BEDTIME Other form of scoliosis of thoracolumbar spine Xray Spine Scoliosis Study 2 View; Status:Hold For - Scheduling; Requested for:[id number]; Radiologist to Determine Optimal Study : Y What are the patient's signs and symptoms? : low back pain Other ovarian cyst Ultrasound Pelvis Transabdominal; Status:Hold For - Scheduling,Retrospecti ve By Protocol Authorization; Requested for:[id number]; Radiologist to Determine Optimal Study : Y What are the patient's signs and symptoms? : lump on right breast getting worse Screening, lipid Lipid Panel; Status:Active - Retrospective Authorization; Requested for:[id number]; Patient Discussion/Summary By signing my name below, I, Florencio Velázquez CMA, Scribe, attest that this documentation has been prepared under the direction and in the presence of Vick Smith MD. All medical record entries made by the Chiomaibe were at my direction and personally dictated by me. I have reviewed the chart and agree that the record accurately reflects my personal performance of the history, physical exam, discussion and plan. This patient will follow-up in 1 month with lab work prior. Other follow-up will be as needed. Provider Impressions Depression Is stable, continue with current treatment. Anxiety Is stable, continue with current treatment. Neck pain Is stable, continue with current treatment. We will prescribe Gabapentin to help with the burning pain. You will take this at bedtime. Scoliosis, we will have you complete an xray to look at the severity of the scoliosis. Lump in the right breast Is present and symptomatic, will need treatment. We will have you complete a mammogram. This patient does have varicose veins and we will refer to Dr. Vaca if they become symptomatic enough to justify the referral. We have ordered blood work for you to complete at your earliest convenience. We will call you as the results become available. Chief Complaint lump in breast History of Present IllnessTONYA LAW is making the first visit to the office to establish. The primary issue is lump in right breast, possible cyst on ovary she would like to see nursing home admissions director. Varicose veins in her feet are severe, slight scoliosis in lower back, and she has 3 bad discs in her neck. Pain shoots down her right arm, goes around her back and is described as burning under her shoulder blades. Pt has a history of anxiety and depression. She is currently on medication for both hydroxyzine for the anxiety and sertraline for the depression. This seems to be helping satisfactorily. Pt would like help to stop smoking. Patient states she has had a biopsy from the lump in her right breast which came back okay. Patient has had partial hysterectomy. Review of Systems This patient has no chest pains or pressures. The patient has no shortness of breath even on exertion. There is no indigestion, heartburn, nausea or vomiting. There is no constipation, diarrhea or stool changes Past Medical History History of scoliosis (V13.59) (Z87.39) Surgical History History of Gallbladder surgery History of Hysterectomy She did not have the BSO. Family History Family history of chronic obstructive pulmonary disease (V17.6) (Z82.5) Family history of pancreatic cancer (V16.0) (Z80.0) Social History Consumes alcohol (V49.89) (Z72.89) Current every day smoker (305.1) (F17.200) Allergies No Known Drug Allergies Recorded By: Aide Christensen; 02/24/2022 1:36:56 PM Vitals Vital Signs Recorded: 24Feb2022 01:40PM Shghsnimwrw47.3 F Heart Rate75 Ulomfsxqllx63 Dtjpjbrc244 Qijhuxtdj82 Height5 ft 3 in Kuvsnj197 lb 4 oz BMI Idcrlhfbvf93.97 kg/m2 BSA Calculated1.72 Tobacco Usea) Yes Patient encouraged to stop using tobacco productsYes PHQ-2 #1. Over the last 2 weeks have you felt down, depressed or hopeless? (If yes, answer PHQ-9 below)No PHQ-2 #2. Over the last 2 weeks have you felt little interest or pleasure in doing things? (If yes, answer (more content not included)... Normal [employer] Tobacco Screening.on 022 Adult depression screening assessment No [facility] Work Phone: Fall risk assessment c) Not medically indicated [facility] Work Phone: Tobacco use status CPHS a) Yes [facility] Work Phone: Tobacco Screening. Yes [facility] Work Phone: BASIC METABOLIC PANELon 08-02 Anion gap [Moles/Vol] 11 mmol/L Normal 10 - 20 [facility] Comment on above: Performed By: #### B MP #### [address] [id number] Calcium [Mass/Vol] 9.6 mg/dL Normal 8.6 - 10.3 [facility] Comment on above: Performed By: #### B MP #### [address] [id number] Chloride [Moles/Vol] 102 mmol/L Normal 98 - 107 [facility] Comment on above: Performed By: #### B MP #### [address] [id number] Creatinine [Mass/Vol] 0.82 mg/dL Normal 0.50 - 1.05 [facility] Comment on above: Performed By: #### B MP #### [address] [id number] GFR- AM. >60 Normal >60 [facility] Comment on above: Result Comment: CALC ULATIONS OF ESTIMATED GFR ARE PERFORMED USING THE MDRD STUDY EQUATION FOR THE IDMS-TRACEABLE CREATININE METHODS. CLIN CHEM 2007;53:766-72 Performed By: #### B MP #### [address] [id number] GFR-NON AM. >60 Normal >60 [facility] Comment on above: Performed By: #### B MP #### [address] [id number] Glucose [Mass/Vol] 94 mg/dL Normal 74 - 99 [facility] Comment on above: Performed By: #### B MP #### [address] [id number] HCO3 (Bld) [Moles/Vol] 29 mmol/L Normal 21 - 32 [facility] Comment on above: Performed By: #### B MP #### [address] [id number] Potassium [Moles/Vol] 4.0 mmol/L Normal 3.5 - 5.3 [facility] Comment on above: Performed By: #### B MP #### [address] [id number] Sodium [Moles/Vol] 138 mmol/L Normal 136 - 145 [facility] Comment on above: Performed By: #### B MP #### [address] [id number] Urea nitrogen [Mass/Vol] 9 mg/dL Normal 6 - 23 [facility] Comment on above: Performed By: #### B MP #### [address] [id number] CBC AND DIFFERENTIALon 08-19 -2020 % AUTOMATED IMMATURE GRAN 0.3 % Normal 0.0 - 0.9 [facility] Comment on above: Result Comment: Anayeli ture Granulocyte Count (IG) includes promyelocytes, myelocytes and metamyelocytes but does not include bands. Percent differential counts (%) should be interpreted in the context of the absolute cell counts (cells/L). Performed By: #### C BCDF #### [address] [id number] Basophils (Bld) [#/Vol] 0.04 10*3/uL Normal 0.00 - 0.10 [facility] Comment on above: Performed By: #### C BCDF #### [address] [id number] Basophils/100 WBC (Bld) 0.5 % Normal 0.0 - 2.0 [facility] Comment on above: Performed By: #### C BCDF #### [address] [id number] Eosinophils (Bld) [#/Vol] 0.28 10*3/uL Normal 0.00 - 0.70 [facility] Comment on above: Performed By: #### C BCDF #### [address] [id number] Eosinophils/100 WBC (Bld) 3.7 % Normal 0.0 - 6.0 [facility] Comment on above: Performed By: #### C BCDF #### [address] [id number] Erythrocyte distribution width (RBC) [Ratio] 13.2 % Normal 11.5 - 14.5 [facility] Comment on above: Performed By: #### C BCDF #### [address] [id number] Hematocrit (Bld) [Volume fraction] 40.7 % Normal 36.0 - 46.0 [facility] Comment on above: Performed By: #### C BCDF #### [address] [id number] Hemoglobin (Bld) [Mass/Vol] 13.3 g/dL Normal 12.0 - 16.0 [facility] Comment on above: Performed By: #### C BCDF #### [address] [id number] Lymphocytes (Bld) [#/Vol] 2.63 10*3/uL Normal 1.20 - 4.80 [facility] Comment on above: Performed By: #### C BCDF #### [address] [id number] Lymphocytes/100 WBC (Bld) 34.6 % Normal 13.0 - 44.0 [facility] Comment on above: Performed By: #### C BCDF #### [address] [id number] MCHC (RBC) [Mass/Vol] 32.7 g/dL Normal 32.0 - 36.0 [facility] Comment on above: Performed By: #### C BCDF #### [address] [id number] MCV (RBC) [Entitic vol] 104 fL High 80 - 100 [facility] Comment on above: Performed By: #### C BCDF #### [address] [id number] Monocytes (Bld) [#/Vol] 0.52 10*3/uL Normal 0.10 - 1.00 [facility] Comment on above: Performed By: #### C BCDF #### [address] [id number] Monocytes/100 WBC (Bld) 6.8 % Normal 2.0 - 10.0 [facility] Comment on above: Performed By: #### C BCDF #### [address] [id number] Neutrophils (Bld) [#/Vol] 4.11 10*3/uL Normal 1.20 - 7.70 [facility] Comment on above: Performed By: #### C BCDF #### [address] [id number] Neutrophils/100 WBC (Bld) 54.1 % Normal 40.0 - 80.0 [facility] Comment on above: Performed By: #### C BCDF #### [address] [id number] Platelets (Bld) [#/Vol] 257 10*3/uL Normal 150 - 450 [facility] Comment on above: Performed By: #### C BCDF #### [address] [id number] RBC 3.92 x10E12/L Low 4.00 - 5.20 [facility] Comment on above: Performed By: #### C BCDF #### [address] [id number] WBC (Bld) [#/Vol] 7.6 10*3/uL Normal 4.4 - 11.3 [facility] Comment on above: Performed By: #### C BCDF #### [address] [id number] CORONAVIRUS 2019, SCREEN ASY MPTOMATICon 08-19-2021 SARS-CoV-2 (COVID-19) RNA ANA+probe Ql (Unsp spec) Not detected Normal Not Detected [facility] Comment on above: Result Comment: . This test has received FDA Emergency Use Authorization (EUA) and has been verified by [facility]. This test is only authorized for the duration of time that circumstances exist to justify the authorization of the emergency use of in vitro diagnostic tests for the detection of SARS-CoV-2 virus and/or diagnosis of COVID-19 infection under section 564(b)(1) of the Act, 21 U.S.C. 360bbb-3(b)(1), unless the authorization is terminated or revoked sooner. [facility] is certified under CLIA-88 as qualified to perform high complexity testing. Testing is performed in the [facility] laboratory located at [address] [place] [address]. SARS-CoV-2/Flu/RSV Multiplex Test: Fact sheet for providers: https://www.fda.gov/media/456534/download Fact sheet for patients: https://www.fda.gov/media/734053/download Performed By: #### C OVSC ####[facility] [place], [place] [id number] Lab Specimen Source Nasal, Nasopharyngeal Normal [facility] Comment on above: Performed By: #### C OVSC ####[facility] [place], [place] [id number] Covid 19 Resultson 1 SARS-CoV-2 (COVID-19) RNA +probe Ql (Unsp spec) NEGATIVE COVID-19 Test Coronaviruses are common world-wide and are the cause of many common colds. SARS-COV2 is a new coronavirus that began circulating worldwide in 2019 so we are calling it COVID-19. It has been estimated that four out of five patients with COVID-19 will recover at home without the need for medical attention. Symptoms of COVID-19 may include cough, fever, shortness of breath, loss of taste or smell and other flu-like symptoms including chills, sore muscles, sore throat, and headache. Severe illness is more common in older people and people with other health problems such as high blood pressure, obesity, and immune system problems. If the test is positive, you have COVID-19. You will be contacted by the ordering physicians office and instructed to remain on home isolation, in accordance with CDC guidelines. You may also be contacted by the [facility] to see if any of your close contacts may have been exposed to the virus and need to quarantine. If the test is negative, you likely do not have COVID-19 at this time, but you still may have a different illness that can spread to other people (like Influenza, or the Flu) and could still be at risk for getting COVID-19. We recommend that you stay away from other people to limit the spread of illness until your symptoms are improving and you are fever-free for 24 hours without the use of fever lowering medications such as acetaminophen or ibuprofen. No test is 100% accurate so if you are still concerned you may have COVID-19, talk to your doctor about the need to continue to stay away from others. Medicines Unless your provider told you not to use the following: Acetaminophen (Tylenol and others) is generally safe. Anti-inflammatory medications, such as Ibuprofen (Advil or Motrin) or Naproxen (Aleve) can also be used. Phvh-ihp-dccdpal cough and cold medicines can be used according to the instructions on the package. Some xnhp-vxf-jujvqdy medicines also contain acetaminophen. Make sure you are not taking more than your recommended dose. For those not hospitalized, there is no specific treatment available for this illness. Antibiotics do not treat Coronaviruses. Follow-Up Follow up with your doctor by scheduling a virtual visit or consider follow-up at one of our urgent care fever clinics. If you are having difficulty breathing, or are very weak and having difficulty standing, this is a medical emergency. Call 911 or have someone take you to the nearest emergency room immediately. If possible, wear a facemask. Additional guidance from the CDC for patients who tested POSITIVE for COVID-19 How to isolate: Isolate yourself in a specific room at home and limit your contact with others. Use a separate bathroom from other members of the household, when possible. Leave home only to get essential medical care. Do not go to work, school or public areas. Avoid using public transportation, ride-sharing, or taxis. Restrict contact with pets and other animals. If you must care for your pet or be around animals while you are sick, wash your hands before and after your interaction and wear a facemask. Make sure that shared spaces in the home have good airflow, such as by an air conditioner or an opened window, weather permitting. Personal Hygiene Procedures: Wear a face mask when in the same room as other people or pets. If a face mask interferes with your breathing, others should wear a mask when sharing space with you. Frequent hand-washing: wash your hands with soap and water for at least 20 seconds. If soap and water are not available, use alcohol-based hand scaler. Avoid touching your eyes, nose, and mouth with unwashed hands. Household Hygiene Procedures: Avoid sharing personal household items such as dishes, glassware, cups, eating utensils, towels or bedding with other people or pets in your home. After use, these items should be washed with soap and hot water. Disinfect all high-touch surfaces every day with antibacterial cleaning solutions such as Lysol wipes, bleach, cleansers, etc. High-touch surfaces include tabletops, doorknobs, bathroom fixtures, toilets, phones, keyboards, tablets and bedside tables. Immediately clean any surfaces that may have blood, poop or body fluids on them, using antibacterial cleaning solutions such as Lysol wipes, bleach, cleansers, etc. If clothing or bedding come into contact with blood, poop or body fluids, they should be washed immediately. Follow the directions on the laundry detergent and clothing labels but hot water is recommended when possible. Stopping home isolation precautions: If possible, consult your doctor before stopping home isolation precautions. According to the CDC, you can discontinue home isolation precautions when you have met both of these criteria: Your fever and respiratory symptoms have been gone for 24 brian (more content not included)... Normal [facility] HCG,URINEon 08-19-2021 Beta HCG ( test) Ql (U) Canceled Normal [facility] Comment on above: Order Comment: TEST HCG,URINE WAS CANCELLED, 08/19/2021 18:55 NO SPECIMEN RECEIVED IN LAB, PATIENT DISCHARGED.. Performed By: #### H CGU #### [facility] [address] [place], [place] [id number] HEPATIC FUNCTION PANELon Albumin [Mass/Vol] 4.4 g/dL Normal 3.4 - 5.0 [facility] Comment on above: Performed By: #### H EPFP #### [facility] [address] [place], [place] [id number] ALP [Catalytic activity/Vol] 75 U/L Normal 33 - 110 [facility] Comment on above: Performed By: #### H EPFP #### [address] [id number] ALT [Catalytic activity/Vol] 14 U/L Normal 7 - 45 [facility] Comment on above: Result Comment: Jordana ents treated with Sulfasalazine may generate falsely decreased results for ALT. Performed By: #### H EPFP #### [address] [id number] AST [Catalytic activity/Vol] 21 U/L Normal 9 - 39 [facility] Comment on above: Performed By: #### H EPFP #### [address] [id number] Bilirubin [Mass/Vol] 0.6 mg/dL Normal 0.0 - 1.2 [facility] Comment on above: Performed By: #### H EPFP #### [address] [id number] Bilirubin.indirect [Mass/Vol] 0.1 mg/dL Normal 0.0 - 0.3 [facility] Comment on above: Performed By: #### H EPFP #### [address] [id number] Protein [Mass/Vol] 7.0 g/dL Normal 6.4 - 8.2 [facility] Comment on above: Performed By: #### H EPFP #### [address] [id number] LACTATEon 08-19-2021 Lactate [Moles/Vol] 1.0 mmol/L Normal 0.4 - 2.0 [facility] Comment on above: Result Comment: Nallely puncture immediately after or during the administration of Metamizole may lead to falsely low results. Testing should be performed immediately prior to Metamizole dosing. Performed By: #### L ACT #### [address] [id number] LIPASEon 08-19-2021 Lipase [Catalytic activity/Vol] 43 U/L Normal 9 - 82 [facility] Comment on above: Result Comment: Nallely puncture immediately after or during the administration of Metamizole may lead to falsely low results. Testing should be performed immediately prior to Metamizole dosing. Z-dtgilg-s-benzoquinone imine (metabolite of Acetaminophen) will generate erroneously low results in samples for patients that have taken toxic doses of acetaminophen. Performed By: #### L IPAS #### [address] [id number] Provider Note - ED v3on 08-02 Provider Note - ED v3 Provider Note: Chart Review: ED NOTES ED NOTES: This is a 46-year-old female who presents to the emergency room with multiple complaints. Patient reports that since Thursday she has had right-sided abdominal pain with intermittent episodes of distention. Patient states the pain is constant, is described as a sharp stabbing pain with skin sensitivity. She denies any fevers chills nausea vomiting diarrhea hematuria dysuria hematochezia. She has been taking Tylenol and drinking V8 juice with no improvement of her symptoms. She also reports feeling dizzy with the pain. This afternoon the pain started to get worse and radiate up into her epigastric region to the right side of her chest. Denies any history of PEs or aneurysms. She also complains of chronic low back pain with bilateral leg numbness that has been going off and on for the past month. She also reports occasionally having a discoloration to her left lower extremity which she also reports going off and on for over a month. She reports easy bruising to her extremities. She is not on blood thinners. Patient states that she is attempted to have appoint with her doctor but is unsuccessful. Social history she does smoke tobacco products drinks alcohol socially denies any drug use she is currently unemployed family history was reviewed and is noncontributory. HISTORY OF PRESENTING ILLNESS TONYA is a 46 year old Female and was seen by me at 19-Aug-2021 13:49 for a chief complaint of dizziness . Other complaints include: complains of chest tightness and abdomen pain and pain in back(1). The historian is the patient. Triage Information: Most recent Vital Sign Value Date Temp (F): 97.1 08-19-2021 13:25 Temp (C): 36.2 08-19-2021 13:25 Heart Rate (beats/min): 81 08-19-2021 13:25 Respirations (breaths/min): 16 08-19-2021 13:25 SpO2 (%): 100 08-19-2021 13:25 BP Systolic (mm Hg): 153 08-19-2021 13:25 BP Diastolic (mm Hg): 86 08-19-2021 13:25 PAST MEDICAL HISTORY PSYCHOSOCIAL SCREENING: NO: concerns for safety at home, feelings of depression, feels like hurting others and feels like hurting self CURRENT OR FORMER SUBSTANCE USE: Tobacco/Nicotine Use: moderate user (uses 11-30 cig/day, OR 0.5-1.5 ppd, OR 2-3 cans/pouches loose leaf tobacco per week, OR 0.5-1.5 vape pods per day) Alcohol Use: occasionally Drug Use: denies,Drug 2 Use: denies ALLERGIES/INTOLERANCES : No Known Allergies HEALTH HISTORY: No documented data. OUTPATIENT MEDICATIONS: Home Medications Review Status for Reconciliation: N/A Med Status: Patient Currently Takes Medications Drug Name: doxycycline hyclate 100 mg oral capsule Instructions: 1 cap(s) orally 2 times a day Drug Name: benzonatate 200 mg oral capsule Instructions: 1 cap(s) orally 3 times a day Drug Name: Ventolin HFA 90 mcg/inh inhalation aerosol Instructions: 2 puff(s) inhaled every 4 hours, As Needed Drug Name: IBU 600 mg oral tablet Instructions: 1 tab(s) orally every 6 hours Drug Name: predniSONE 20 mg oral tablet Instructions: 1 tab(s) orally 3 times a day Drug Name: doxycycline hyclate 100 mg oral capsule Instructions: 1 cap(s) orally 2 times a day Drug Name: Ventolin HFA 90 mcg/inh inhalation aerosol Instructions: 2 puff(s) inhaled every 4 hours, As Needed Drug Name: predniSONE 20 mg oral tablet Instructions: 1 tab(s) orally 3 times a day SIGNIFICANT EVENTS: Past Surgical History Description:Hysterecto my Description:sonu hutchins REVIEW OF SYSTEMS CONSTITUTIONAL: POSITIVE for: malaise Negative for: chills and fever CARDIOVASCULAR: POSITIVE for: chest pain RESPIRATORY: POSITIVE for: pleuritic chest pain Negative for: cough and dyspnea GASTROINTESTINAL: POSITIVE for: abdominal pain; MUSCULOSKELETAL: POSITIVE for: back pain NEUROLOGICAL: POSITIVE for: dizziness; ENDOCRINE: Negative for: diabetes HEME/LYMPH: POSITIVE for: easy bruising ALLERGIC/IMMUNOLOGIC: Negative for: immunologic disorder and immunosuppressive disorder; All other systems reviewed and are negative PHYSICAL EXAM CONSTITUTIONAL: Well appearing, well nourished, awake, alert, oriented to person, place, time/situation and in no apparent distress. HENMT: Airway patent, ears with clear tympanic membranes bilaterally. Nasal mucosa clear. Mouth with normal mucosa. Throat has no vesicles, no oropharyngeal exudates and uvula is midline. Face with no lymph node enlargement. EYES: Clear bilaterally, pupils equal, round and reactive to light. CARDIOVASCULAR: Normal rate, regular rhythm. Heart sounds S1, S2. No murmurs, rubs or gallops. PMI non-displaced. RESPIRATORY: Respiratory Distress: no respiratory distress Breath Sounds: normal breath sounds Tenderness: non-tender Rales: no rales Wheezes: no wheezes Rhonchi: no rhonchi GASTROINTESTINAL: Abdominal Exam: soft, nondistended, no organomegaly and no splenomegaly Masses: no mass on examination Abdominal Tend (more content not included)... Normal [facility] Risk Screen - Adult Emergenc yon 08-19-2021 Risk Screen - Adult Emergency Preferred Language: Preferred Language: Preferred Language for Discussing Health Care (patient/designee)[facility]the [facility] [place] Advanced Directives: Advance Directive/DNRno Family Violence Adult: Abuse Screen: Are you or have you been threatened or abused physically, emotionally, or sexually by anyoneno Learning Assessment (Patient): Learning Assessment (Patient): Patient is Able to be Assessed for Learningyes Factors Influencing Readiness to Learnacuteness of illness Factors that Impact Ability to Learnnone Devices/Methods Used to Communicatenone Learning Preferencesaudio Cultural Considerationsnone Developmental Considerationsnone Pentecostalism Considerationsnone Learning Assessment (Other Learner): Learning Assessment (Other Learner): Other learner availableno Pressure Injury/TB/Substance: Pressure Injury: Do you have a coughno Smoking Statuslight user (uses <10 cig/day, OR <0.5 ppd, OR 1 can/pouch loose leaf tobacco per week, OR <0.5 vape pods per day) Tobacco Cessation Education (provide if tobacco use within the last 12 mos) patient declined Admission Risk Screen: Significant IndicatorsComplete CAGE: CAGE: Is this an injured patient at a Trauma Center ([facility]/[place]/[facility]/[place]): no Electronic Signatures: Elli Watts (RN) (Signed 19-Aug-2021 14:24) Authored: Preferred Language, Advanced Directives, Family Violence Adult, Learning Assessment (Patient), Learning Assessment (Other Learner), Pressure Injury/TB/Substance, Pressure Injury, CAGE Last Updated: 19-Aug-2021 14:24 by Elli Watts (SILVANA) Normal [facility] TROPONIN Ion 08-19-2021 Troponin I.cardiac [Mass/Vol] ng/mL Normal 0.00 - 0.03 [facility] Comment on above: Result Comment: LESS THAN 0.04 NG/ML: NEGATIVE REPEAT TESTING IN THREE TO SIX HOURS IF CLINICALLY INDICATED. 0.04 - 0.5 NG/ML: CONSISTENT WITH POSSIBLE CARDIAC DAMAGE AND POSSIBLE INCREASED CLINICAL RISK. SERIAL MEASUREMENTS MAY HELP ASSESS EXTENT OF MYOCARDIAL DAMAGE. >0.5 NG/ML: CONSISTENT WITH CARDIAC DAMAGE, INCREASED CLINICAL RISK AND MYOCARDIAL INFARCTION. SERIAL MEASUREMENTS MAY HELP ASSESS EXTENT OF MYOCARDIAL DAMAGE. . Note: Troponin I testing is performed using different testing methodology at [facility] than at other [facility]. Direct result comparisons should only be made within the same method. Performed By: #### T ROP2 ####[facility] [place], [place] [id number] TROPONIN I Canceled Normal [facility] Comment on above: Order Comment: TEST TROPONIN I WAS CANCELLED, 08/19/2021 14:27 ADDED ON. Result Comment: LESS THAN 0.04 NG/ML: NEGATIVE REPEAT TESTING IN THREE TO SIX HOURS IF CLINICALLY INDICATED. 0.04 - 0.5 NG/ML: CONSISTENT WITH POSSIBLE CARDIAC DAMAGE AND POSSIBLE INCREASED CLINICAL RISK. SERIAL MEASUREMENTS MAY HELP ASSESS EXTENT OF MYOCARDIAL DAMAGE. >0.5 NG/ML: CONSISTENT WITH CARDIAC DAMAGE, INCREASED CLINICAL RISK AND MYOCARDIAL INFARCTION. SERIAL MEASUREMENTS MAY HELP ASSESS EXTENT OF MYOCARDIAL DAMAGE. . Note: Troponin I testing is performed using different testing methodology at [facility] than at other [facility]. Direct result comparisons should only be made within the same method. Performed By: #### T ROP2 #### [facility] [address] [place], [place] [id number] Triage - EDon 08-19-2021 Triage - ED Quick Triage: Are You no Are You Currently Breastfeedingno Chart Review: ARRIVAL INFORMATION Mode of Arrival: private vehicle CHIEF COMPLAINT TONYA LAW is a Female patient with a chief complaint of dizziness. Other Complaints: complains of chest tightness and abdomen pain and pain in back Triage Date/Time: 19-Aug-2021 13:25 DIANELYS: 3 Vital Signs: Temperature: 97.1F ( 36.2C) taken forehead Blood Pressure: 153/86 Mean: 113 Heart Rate: 81 Respiratory Rate: 16 Pulse Oximetry: 100% on room air, no respiratory support. Height: 5 feet 4.00 inches. 162.5 CM Weight: 130.0 pounds. Calculated 59.0 kg. (stated) Calculated BMI (kg/m2): 22.343 Calculated BSA (m2) 1.63 [place] Coma Scale: Best Eye Response: (E4) spontaneous Best Motor Response: (M6) obeys commands Best Verbal Response: (V5) oriented Karolyn Score: 15 Patient has homicidal thoughts: no Last Known Well: known Time Last Known Well Date/Time: 16-Aug-2021 13:29 Risk Screens Suicide Risk Screen In the Past Month: Have you wished you were or wished you could go to sleep and not wake up no In the Past Month: Have you had any actual thoughts of killing yourself no In Your Lifetime: Have you ever done anything, started to do anything, or prepared to do anything to end your life no Clayton Fall Scale Screening Has the patient fallen before (or is the patient in the ED as a result of a fall) has not had a fall Does the patient have an impaired gait does not have impaired gait Is the patient cognitively impaired not cognitively impaired Interventions: Clayton Fall Interventions: LOW INTERVENTIONS: *patient oriented to surroundings and call system, * patient/family falls education completed and documented, *patients fall status communicated during bedside handoff, *whiteboard updated, *mode of toileting discussed with patient, *bed in low position with brakes locked, *call light in reach, * non-skid footwear TRAVEL HISTORY Travel History Coronavirus Screening: no exposure or symptoms Travel Exposure History: NO travel to International locations in the past 30 days PAIN Pain Scale Used: WILMAR Past Medical History: Past Medical History Reviewedyes gallbladder removed: Past Surgical History, Active Electronic Signatures: Priscilla Shearer (SILVANA) (Signed 19-Aug-2021 13:31) Authored: Quick Triage, Risk Screens, Pain, Travel History, Chart Review, Scores, Past Medical History Last Updated: 19-Aug-2021 13:31 by Priscilla Shearer (RN) Normal [facility] URINALYSIS WITH CULTURE IF I NDICATEDon 08-19-2021 Appearance (U) Canceled Normal [facility] Comment on above: Order Comment: TEST URINALYSIS WITH CULTURE IF INDICATED WAS CANCELLED, 08/19/2021 18:55 NO SPECIMEN RECEIVED IN LAB, PATIENT DISCHARGED.. Performed By: #### U ARFX #### [address] [phone] ASCORBIC ACID Canceled Normal [facility] Comment on above: Order Comment: TEST URINALYSIS WITH CULTURE IF INDICATED WAS CANCELLED, 08/19/2021 18:55 NO SPECIMEN RECEIVED IN LAB, PATIENT DISCHARGED.. Result Comment: Conc entrations > = 20 mg/dL of ascorbic acid can be expected to cause strong interference in the reactions testing for glucose, nitrite and blood. It is recommended to discontinue Vitamin C administration and retest in 10 hours. Performed By: #### U ARFX #### [address] [phone] Bilirubin Ql (U) Canceled Normal [facility] Comment on above: Order Comment: TEST URINALYSIS WITH CULTURE IF INDICATED WAS CANCELLED, 08/19/2021 18:55 NO SPECIMEN RECEIVED IN LAB, PATIENT DISCHARGED.. Performed By: #### U ARFX #### [address] [phone] Color (U) Canceled Normal [facility] Comment on above: Order Comment: TEST URINALYSIS WITH CULTURE IF INDICATED WAS CANCELLED, 08/19/2021 18:55 NO SPECIMEN RECEIVED IN LAB, PATIENT DISCHARGED.. Performed By: #### U ARFX #### [address] [phone] Glucose Ql (U) Canceled Normal [facility] Comment on above: Order Comment: TEST URINALYSIS WITH CULTURE IF INDICATED WAS CANCELLED, 08/19/2021 18:55 NO SPECIMEN RECEIVED IN LAB, PATIENT DISCHARGED.. Performed By: #### U ARFX #### [address] [phone] Hemoglobin Ql (U) Canceled Normal [facility] Comment on above: Order Comment: TEST URINALYSIS WITH CULTURE IF INDICATED WAS CANCELLED, 08/19/2021 18:55 NO SPECIMEN RECEIVED IN LAB, PATIENT DISCHARGED.. Performed By: #### U ARFX #### [address] [phone] Ketones Ql (U) Canceled Normal [facility] Comment on above: Order Comment: TEST URINALYSIS WITH CULTURE IF INDICATED WAS CANCELLED, 08/19/2021 18:55 NO SPECIMEN RECEIVED IN LAB, PATIENT DISCHARGED.. Performed By: #### U ARFX #### [address] [phone] Leukocyte esterase Test strip Ql (U) Canceled Normal [facility] Comment on above: Order Comment: TEST URINALYSIS WITH CULTURE IF INDICATED WAS CANCELLED, 08/19/2021 18:55 NO SPECIMEN RECEIVED IN LAB, PATIENT DISCHARGED.. Performed By: #### U ARFX #### [address] [phone] Nitrite Ql (U) Canceled Normal [facility] Comment on above: Order Comment: TEST URINALYSIS WITH CULTURE IF INDICATED WAS CANCELLED, 08/19/2021 18:55 NO SPECIMEN RECEIVED IN LAB, PATIENT DISCHARGED.. Performed By: #### U ARFX #### [address] [id number] pH Canceled Normal [facility] Comment on above: Order Comment: TEST URINALYSIS WITH CULTURE IF INDICATED WAS CANCELLED, 08/19/2021 18:55 NO SPECIMEN RECEIVED IN LAB, PATIENT DISCHARGED.. Performed By: #### U ARFX #### [address] [phone] Protein Ql (U) Canceled Normal [facility] Comment on above: Order Comment: TEST URINALYSIS WITH CULTURE IF INDICATED WAS CANCELLED, 08/19/2021 18:55 NO SPECIMEN RECEIVED IN LAB, PATIENT DISCHARGED.. Performed By: #### U ARFX #### [address] [phone] Specific gravity (U) [Rel density] Canceled Normal [facility] Comment on above: Order Comment: TEST URINALYSIS WITH CULTURE IF INDICATED WAS CANCELLED, 08/19/2021 18:55 NO SPECIMEN RECEIVED IN LAB, PATIENT DISCHARGED.. Performed By: #### U ARFX #### [address] [phone] UROBILINOGEN Canceled Normal [facility] Comment on above: Order Comment: TEST URINALYSIS WITH CULTURE IF INDICATED WAS CANCELLED, 08/19/2021 18:55 NO SPECIMEN RECEIVED IN LAB, PATIENT DISCHARGED.. Performed By: #### U ARFX #### [address] [id number] CBC W/Diff, Automatedon 02-2 0-2020 Absolute Lymph 3.18 X10 3/uL Normal 0.83-4.51 [facility] Comment on above: Performed By: #### L 501.2450, L500.4050, L100.0100 #### [facility] [address] [place], [address] Absolute Neut 3.7 X10 3/uL Normal 2.0-7.7 [facility] Comment on above: Performed By: #### L 501.2450, L500.4050, L100.0100 #### [facility] [address] [place], [address] Basophils/100 WBC (Bld) 0.5 % Normal 0-1 [facility] Comment on above: Performed By: #### L 501.2450, L500.4050, L100.0100 #### [facility] [address] [place], [address] Eosinophils/100 WBC (Bld) 3.6 % Normal 0-5 [facility] Comment on above: Performed By: #### L 501.2450, L500.4050, L100.0100 #### [facility] [address] [place], [address] Erythrocyte distribution width (RBC) [Ratio] 12.1 % Normal 11.6-14.6 [facility] Comment on above: Performed By: #### L 501.2450, L500.4050, L100.0100 #### [facility] [address] [place], [address] Hematocrit (Bld) [Volume fraction] 40.5 % Normal 37-47 [facility] Comment on above: Performed By: #### L 501.2450, L500.4050, L100.0100 #### [facility] [address] [place], [address] Hemoglobin (Bld) [Mass/Vol] 13.2 g/dL Normal 12.0-15.0 [facility] Comment on above: Performed By: #### L 501.2450, L500.4050, L100.0100 #### [facility] [address] [place], [address] IG% 0.100 Normal 0.0-0.9 [facility] Comment on above: Result Comment: IG% - Immature Granulocytes (promyelocytes, myelocytes and metamyelocytes) > 1% indicates that a LEFT SHIFT is Present. Performed By: #### L 501.2450, L500.4050, L100.0100 #### [facility] [address] [place], [address] Lymphocytes/100 WBC (Bld) 41.4 % High 19-41 [facility] Comment on above: Performed By: #### L 501.2450, L500.4050, L100.0100 #### [facility] [address] [place], [address] MCH (RBC) [Entitic mass] 33.1 pg High 27.0-32.0 [facility] Comment on above: Performed By: #### L 501.2450, L500.4050, L100.0100 #### [facility] [address] [place], [address] MCHC (RBC) [Mass/Vol] 32.6 g/dL Normal 32-36 [facility] Comment on above: Performed By: #### L 501.2450, L500.4050, L100.0100 #### [facility] [address] [place], [address] MCV (RBC) [Entitic vol] 101.5 fL High 81-99 [facility] Comment on above: Performed By: #### L 501.2450, L500.4050, L100.0100 #### [facility] [address] [place], [address] Monocytes/100 WBC (Bld) 5.9 % Normal 0-10 [facility] Comment on above: Performed By: #### L 501.2450, L500.4050, L100.0100 #### [facility] [address] [place], [address] Neutrophils/100 WBC (Bld) 48.5 % Normal 47-70 [facility] Comment on above: Performed By: #### L 501.2450, L500.4050, L100.0100 #### [facility] [address] [place], [address] Nucleated RBC (Bld) [#/Vol] 0 10*3/uL Normal 0-5 [facility] Comment on above: Performed By: #### L 501.2450, L500.4050, L100.0100 #### [facility] [address], [address] Platelet mean volume (Bld) [Entitic vol] 9.8 fL Normal 6.2-12.0 [facility] Comment on above: Performed By: #### L 501.2450, L500.4050, L100.0100 #### [facility] [address] [place], [address] Platelets (Bld) [#/Vol] 291 10*3/uL Normal 150-450 [facility] Comment on above: Performed By: #### L 501.2450, L500.4050, L100.0100 #### [facility] [address] [place], [address] RBC (Bld) [#/Vol] 3.99 10*6/uL Low 4.2-5.4 [place] Comment on above: Performed By: #### L 501.2450, L500.4050, L100.0100 #### [facility] [address] [place], [address] RDW SD 45.8 fl High 35.1-43.9 [facility] Comment on above: Performed By: #### L 501.2450, L500.4050, L100.0100 #### [facility] [address] [place], [address] WBC (Bld) [#/Vol] 7.7 10*3/uL Normal 4.4-11.0 [facility] Comment on above: Performed By: #### L 501.2450, L500.4050, L100.0100 #### [facility] [address] [place], [address] COVID 19 AG RAPID (SILVANA Larsen)on 12-22-2020 SARS-CoV-2 (COVID-19) RNA ANA+probe Ql (Unsp spec) Comments: Order Always:Unless pt has Inhouse Cov19 Criteria+ *Negative results from patients with symptom onset beyond five days should be treated as presumptive and confirmed by a molecular assay if clinically necessary. Negative results should not be used as the sole basis for treatment or for patient management. COVID 19 AG RAPID (RN COLLECT) *Positive results do not differentiate between SARS-CoV and SARS-CoV-2. If differentation of the specific SARS virus is desired an additional sample and an additional order is required. COVID 19 AG RAPID (RN COLLECT) * This test has not been FDA cleared or approved; the test has been authorized by FDA under an Emergency Use Authorization (EAU) for use by laboratories certified under CLIA that meet the requirements to perform moderate, high, or waived complexity tests. COVID 19 AG RAPID (RN COLLECT) Normal Reference Range: Negative Testing performed on [employer] analyzer JOSE (lateral flow immunofluorescent assay) SARS-CoV-2 (COVID 19) Negative Normal [facility] Comment on above: Performed By: #### M 100.505 #### [facility] [address] [facility] [place], [place], [address] Chest 1 View (Portable)on Chest 1 View (Portable) [facility] Imaging Services [address] [place] [address] Chest 1 View (Portable) MR#: [id number] Acct: [id number] Name: TONYA LAW Rep #: [id number] : 1975 F 45 From: Nico Burleson MD PCP: Status: PRE ER Study: Chest 1 View (Portable) Date of Exam: 12/22/20 Exam# [id number] Ordering Dr: Eugenio Perez MD STUDY: X-RAY CHEST REASON FOR EXAM: Female, 45 years old. lump right side throat, feels like burning at back of neck, abdominal pain TECHNIQUE: AP COMPARISON: None. FINDINGS: EKG leads project over the chest. The lungs are clear and expanded. There is no demonstrated pleural abnormality. Normal size heart. Normal mediastinum and jennifer. Normal visualized pulmonary arteries. Normal visualized aortic arch and descending thoracic aorta. Normal visualized thoracic spine. Normal visualized ribs, clavicles, and shoulders. There is no demonstrated abnormality of the visualized soft tissue structures of the upper abdomen. RAD/Chest 1 View (Portable) IMPRESSION: Nonacute portable x-ray examination of the chest. Electronically Signed: Nico Burleson MD ([facility]) at 14:05 EST , Service support , CC: Dr. 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, [address] Albumin/Globulin [Mass ratio] 1.2 {ratio} Normal 0.9-2.4 [facility] Comment on above: Performed By: #### L 501.2450, L500.4050, L100.0100 #### [facility] [address] [place], [address] ALK P 76 U/L Normal 45-117 [facility] Comment on above: Performed By: #### L 501.2450, L500.4050, L100.0100 #### [facility] [address] [place], [address] ALT [Catalytic activity/Vol] 21 U/L Normal 13-56 [facility] Comment on above: Performed By: #### L 501.2450, L500.4050, L100.0100 #### [facility] [address] [place], [address] AST [Catalytic activity/Vol] 14 U/L Low 15-37 [facility] Comment on above: Performed By: #### L 501.2450, L500.4050, L100.0100 #### [facility] [address] [place], [address] Bilirubin [Mass/Vol] 0.20 mg/dL Normal 0.20-1.00 [facility] Comment on above: Result Comment: For patients on eltrombopag therapy, use of Dimension Coleman TBIL is not recommended. Performed By: #### L 501.2450, L500.4050, L100.0100 #### [facility] [address] [place], [address] BUN/CRE 15.3 RATIO Normal 10-20 [facility] Comment on above: Performed By: #### L 501.2450, L500.4050, L100.0100 #### [facility] [address] [place], [address] CA,Total 9.0 mg/dL Normal 8.5-10.1 [facility] Comment on above: Performed By: #### L 501.2450, L500.4050, L100.0100 #### [facility] [address] [place], [address] Chloride [Moles/Vol] 108 mmol/L High 98-107 [facility] Comment on above: Performed By: #### L 501.2450, L500.4050, L100.0100 #### [facility] [address] [place], [address] CO2 [Moles/Vol] 27.0 mmol/L Normal 21.0-32.0 [facility] Comment on above: Performed By: #### L 501.2450, L500.4050, L100.0100 #### [facility] [address] [place], [address] Creatinine [Mass/Vol] 0.91 mg/dL Normal 0.55-1.02 [facility] Comment on above: Result Comment: The validity of the calculated GFR GFRAA in patients over 70 years has not been determined. Clinical correlation is essential. Performed By: #### L 501.2450, L500.4050, L100.0100 #### [facility] [address] [place], [address] ECRCL 63.22 ml/min Normal [facility] Comment on above: Performed By: #### L 501.2450, L500.4050, L100.0100 #### [facility] [address] [place], [address] EST GFR - AA 85 mL/min Normal >60 [facility] Comment on above: Result Comment: Afri can Chinese GFR Calc Performed By: #### L 501.2450, L500.4050, L100.0100 #### [facility] [address] [place], [address] GAP 4 Low 5-15 [facility] Comment on above: Performed By: #### L 501.2450, L500.4050, L100.0100 #### [facility] [address] [place], [address] GFR/1.73 sq M.predicted among non-blacks MDRD (S/P/Bld) [Vol rate/Area] 70 mL/min/{1.73_m2} Normal >60 [facility] Comment on above: Result Comment: Non- GFR Calc Performed By: #### L 501.2450, L500.4050, L100.0100 #### [facility] [address] [place], [address] Globulin (S) [Mass/Vol] 3.3 g/dL Normal 2.2-4.2 [facility] Comment on above: Performed By: #### L 501.2450, L500.4050, L100.0100 #### [facility] [address] [place], [address] Glucose [Mass/Vol] 94 mg/dL Normal 74-106 [facility] Comment on above: Result Comment: Nick gonzales note revised GLUCOSE reference range effective 2017. Performed By: #### L 501.2450, L500.4050, L100.0100 #### [facility] [address] [place], [address] Potassium [Moles/Vol] 4.1 mmol/L Normal 3.5-5.1 [facility] Comment on above: Performed By: #### L 501.2450, L500.4050, L100.0100 #### [facility] [address] [place], [address] Sodium [Moles/Vol] 139 mmol/L Normal 136-145 [facility] Comment on above: Performed By: #### L 501.2450, L500.4050, L100.0100 #### [facility] [address] [place], [address] T PROT 7.2 g/dL Normal 6.4-8.2 [facility] Comment on above: Performed By: #### L 501.2450, L500.4050, L100.0100 #### [facility] [address] [place], [address] Urea nitrogen [Mass/Vol] 14 mg/dL Normal 7-18 [facility] Comment on above: Performed By: #### L 501.2450, L500.4050, L100.0100 #### [facility] [address] [place], [address] Emergency Department Summary on 12-22-2020 Emergency Department Summary [facility] Medical Records Department [address] [place] [address] Emergency Department Summary 12/22/20 MR#: [id number] Acct: [id number] Name: TONYA LAW Rep #: [id number] : 1975 45 From: Eugenio Perez MD PCP: Care Physician, No Primary Status:REG ER - ER Visit Summary Date of Service: 12/22/20 Chief Complaint: Cough and pain with swallowing History of Present Illness: The patient is a 45 F with no primary care physician. She reports that she has a cough that been present for the past 2 weeks. Is productive white/yellow sputum without blood. She denies fever or chills. She does report she has had sweats. Patient reports the right side of her throat feels raw. Patient reports that she has had intermittent abdominal pain over the past 2 weeks. She denies any pain at this time. She has been nausea and vomited once today. No blood in her emesis. No diarrhea. She denies any chest pain or shortness of breath. She denies any dysuria or frequency. Physical Examination: Vitals: Stable. Afebrile. General: Well-nourished and well-developed. Head: Normocephalic atraumatic. HEENT: No pharyngeal erythema, tonsillar exudate, or tonsillar enlargement. No cervical lymphadenopathy. Neck: Supple, no lymphadenopathy. No JVD. Nontender. Cardiovascular: Regular rate and rhythm. No murmurs. Respiratory: No respiratory distress. Clear to auscultation bilaterally. Abdominal: Soft, nontender, nondistended, normal bowel sounds. No guarding, rebound, or peritoneal signs. Back: Nontender. Extremities: Nontender, no edema. Skin: Normal color, no rash. Neurologic: Alert and oriented ???3. Cranial nerves II through XII are intact. Normal strength and sensation. Psych: Normal affect. Test Results: CBC shows lymphocytes 41. Chem-7 shows a chloride of 108. LFTs show an AST of 14. Lipase is 213. COVID-19 is negative. Clinical Impression(s) from Imaging Studies Chest X-Ray 12/22/20 13:54 IMPRESSION: Nonacute portable x-ray examination of the chest. Electronically Signed: Nico Burleson MD (Brooks) at 14:05 EST , Service support , Emergency Department Course and Treatment: Patient had an IV placed. She was given a liter normal saline. She was given Zofran IV. She is resting comfortably. Treatment Plan: Patient be discharged instructions to follow-up with the [facility] in 1 week if not improving. Return to the emergency department for any worsening symptoms. Disposition: To home in improved and stable condition. Impression: 1. URI. This note was generated with [employer]comation software. It may contain incorrect words, spelling, and punctuation that were not noted in review of the chart prior to signing ED Disposition - Plan for ED Patient: Instructions: ED URI, Viral, No Abx (Adult) Referrals: [facility] [NON-STAFF] - 1 Week if not improving What to do if you have Problems For any increased pain, shortness of breath, bleeding, nausea or vomiting, chest pain, or any unexpected problems, contact your Primary Care Provider. Call [facility] ([phone]) or report to the closest Emergency Room. Call 911 if necessary. 12/22/20 1502 Date Eugenio Barreraer Signature (If Indicated): Date CC: No Primary Care Physician Normal [facility] Lipaseon 12-22-2020 Lipase [Catalytic activity/Vol] 213 U/L Normal 73-393 [facility] Comment on above: Performed By: #### L 501.2450, L500.4050, L100.0100 #### [facility] [address] [place], [address] CNPZoraida 09-21-2019 CNPN Telephone (AGGBRCR) TONYA LAW ([id number]) 1975 F Date Time Provider Department 09/21/19 LAZARA CACERES During your visit today, we recorded the following information about you: Klaus Hardin 09/21/2019 2:21 PM Signed Left message for patient to callback and reschedule appointment. Ky Hardin Allergies As of Date: 09/21/2019 (No Known Allergies) Date Reviewed: 09/20/2019 Reviewed by: Tequila (Rn) SILVANA Zavala - Fully Assessed Reason for Visit: Missed Appointment [1304] Cmt: No Show #1 Prescriptions as of 09/21/2019 Sig: AMOXICILLIN 875 MG-POTASSIUM * Take 1 tablet by mouth twice * CIPROFLOXACIN 0.3 %-DEXAMETHA* Use 4 Drops in the right ear * BENZONATATE 100 MG CAPSULE Take 1 capsule by mouth three* SERTRALINE 50 MG TABLET Take 1 tablet by mouth once d* LORATADINE 10 MG TABLET TAKE 1 TABLET BY MOUTH EVERY * ONDANSETRON 4 MG DISINTEGRATI* Take 1 tablet by mouth every * NAPROXEN 500 MG TABLET Take 1 tablet by mouth twice * FLUTICASONE PROPIONATE 50 MCG* Use 1 [place] in each nostril o* Problem List As Of Date 09/21/2019 Noted Resolved Low back pain [M54.5] Levoscoliosis [M41.80] Numbness and tingling sensation of skin [R20.0,* Hip pain [M25.559] Liver lesion [K76.9] 02/03/2017 Chronic right-sided low back pain with right-si*04/15/2017 Anxiety [F41.9] 03/23/2018 Letter Text Encounter Status:Closed by KLAUS HARDIN on 09/21/19 [facility] PROGRESSon 12-21-2018 PROGRESS HNO ID: [id number] Author: Lazara Caceres Service: (none) Author Type: Physician Type: Progress Notes Filed: 12/21/2018 11:11 AM Note Text: The patient was not seen today. There are no charges. [facility] CNOVon 12-13-2018 CNOV Office Visit (AGGBRC R) TONYA LAW ([id number]) 1975 F Date Time Provider Department 12/13/18 8:45 AM LAZARA CACERES AGGBRCR During your visit today, we recorded the following information about you: Lazara Caceres MD 12/21/2018 11:11 AM Signed The patient was not seen today. There are no charges. Pain Medicine Physician: Facesheet ID: [id number] 12/13/2018 12:00 AM Author: KARSON PROVIDER Signed by CC PROVIDER on 12/13/2018 at 8:59 AM Document text: Display document [id number] only -- Referring Provider: LAZARA CACERES [[id number]] Allergies As of Date: 12/13/2018 (No Known Allergies) Date Reviewed: 10/11/2018 Reviewed by: Klaus (Rn) SILVANA Casas - Fully Assessed Primary Visit Diagnosis:Abnormal finding on breast imaging [R92.8] Prescriptions as of 12/13/2018 Sig: LORATADINE 10 MG TABLET TAKE 1 TABLET BY MOUTH EVERY * SERTRALINE 50 MG TABLET TAKE 1 TABLET BY MOUTH EVERY * ONDANSETRON 4 MG DISINTEGRATI* Take 1 tablet by mouth every * NAPROXEN 500 MG TABLET Take 1 tablet by mouth twice * FLUTICASONE 50 MCG/ACTUATION * Use 1 [place] in each nostril o* Problem List As Of Date 12/13/2018 Noted Resolved Low back pain [M54.5] Levoscoliosis [M41.80] Numbness and tingling sensation of skin [R20.0,* Hip pain [M25.559] Liver lesion [K76.9] INVALID FOR* Chronic right-sided low back pain with right-si*INVALID FOR* Anxiety [F41.9] INVALID FOR* Encounter Status:Closed by LAZARA CACERES MD on 12/21/18 Normal [facility] MAMM DIAGNOSTIC RIGHTon 02- MAMM DIAGNOSTIC RIGHT Performed at [facility] APPROVED BY: KELLEN PETERSON MD PRELIMINARY REPORT: WILL BE AMENDED AT A LATER DATE. #[id number] - MAMM US BIOPSY BREAST RIGHT #[id number] - MAMM DIAGNOSTIC RIGHT ULTRASOUND GUIDED BIOPSY RIGHT BREAST WITH MARKING DEVICE INSERTED AND POST DIGITAL MAMMOGRAPHIC IMAGIN12/13/2018 CLINICAL: Ultrasound guided biopsy right breast. Post breast biopsy clip placement. PATIENT CONSENT: A time-out was performed immediately prior to procedure start with the radiology team, correctly identifying the patient name, date of , procedure, anatomy (including marking of site and side), patient position, relevant diagnostic and radiology test results, safety precautions, and procedure-specific equipment needs. The procedure was explained to the patient including the risks, benefits and alternatives. Medications and allergies were also reviewed. The risks, including but not limited to infection and bleeding, were reviewed by the performing physician and the patient agreed to undergo the procedure. The radiologist and technologist were present throughout the entire procedure. Audible Time Out: 1032 Procedure Start: 1038 Procedure End: 1055 PROCEDURE: Correlation is made to exams dated: 12/02/2018 ultrasound, 12/02/2018 ultrasound, 12/02/2018 mammogram, and 02/05/2017 mammogram - [facility]. An ultrasound guided biopsy using real-time ultrasound was performed for the 0.6 cm x 0.6 cm x 0.4 cm oval mass located in the right breast at 11 o'clock anterior depth 3 cm from the nipple. This was described on the previous ultrasound report. The skin was prepped in the usual manner. Local anesthetic was administered to the access site. A skin ruperto was made in the breast. A 14 gauge biopsy needle was placed adjacent to the abnormality under ultrasound guidance. Once the needle was documented to be in the correct location, three specimens were obtained using Marquee. A heart shaped clip was inserted into the biopsy cavity. A skin closure strip was applied to the access site. As a separate procedure in a separate room with a dedicated machine, post procedure digital mammographic imaging interpreted on a dedicated mammography workstation demonstrates the location device 0.5cm medial from the geometric center of the targeted area. The specimens were sent to the laboratory for pathological analysis. IMPRESSION: ULTRASOUND GUIDED BIOPSY Ultrasound guided biopsy of the 0.6 cm x 0.6 cm x 0.4 cm mass in the right breast at 11 o'clock anterior depth 3 cm from the nipple was successful with no apparent post procedure complications. Waiting for pathology results. A final report will be issued when these become available. UNILATERAL RIGHT DIGITAL DIAGNOSTIC MAMMOGRAM WITH MEDIOLATERAL CRANIOCAUDAL: 12/13/2018 Comparison is made to exams dated: 12/02/2018 ultrasound, 12/02/2018 ultrasound, 12/02/2018 mammogram, and 02/05/2017 mammogram - [facility]. The tissue of right breast is heterogeneously dense. There is a marker clip in the appropriate position in the right breast upper outer aspect anterior depth. This marker clip placement is at the biopsy site. IMPRESSION: POST PROCEDURE MAMMOGRAM FOR MARKER PLACEMENT There was a successful marker clip placement in the right breast upper outer aspect anterior depth. Based on a modified Lori Model, this patient's calculated lifetime risk of developing breast cancer is 7.7%. SUMMARY: The heart shaped biopsy clip migrated 0.5cm medial from the biopsied mass as seen on the post clip ultrasound images. Dr. Kellen العراقي/jennie:12/13/2018 15:51:15 copy to: LAZARA CACERES M.D., ph: [phone] Creative Services Producer(s): Samina Huang RDMS, [employer] [facility]; RT Audi(R)(M), [facility] Mammogram BI-RADS: Post-procedure mammogram for marker placement Normal [facility] MAMM US BIOPSY BREAST RIGHTo n 12-13-2018 MAMM US BIOPSY BREAST RIGHT Performed at [facility] APPROVED BY: KELLEN PETERSON MD PRELIMINARY REPORT: WILL BE AMENDED AT A LATER DATE. #[id number] - MAMM US BIOPSY BREAST RIGHT #[id number] - MAMM DIAGNOSTIC RIGHT ULTRASOUND GUIDED BIOPSY RIGHT BREAST WITH MARKING DEVICE INSERTED AND POST DIGITAL MAMMOGRAPHIC IMAGIN12/13/2018 CLINICAL: Ultrasound guided biopsy right breast. Post breast biopsy clip placement. PATIENT CONSENT: A time-out was performed immediately prior to procedure start with the radiology team, correctly identifying the patient name, date of , procedure, anatomy (including marking of site and side), patient position, relevant diagnostic and radiology test results, safety precautions, and procedure-specific equipment needs. The procedure was explained to the patient including the risks, benefits and alternatives. Medications and allergies were also reviewed. The risks, including but not limited to infection and bleeding, were reviewed by the performing physician and the patient agreed to undergo the procedure. The radiologist and technologist were present throughout the entire procedure. Audible Time Out: 1032 Procedure Start: 1038 Procedure End: 1055 PROCEDURE: Correlation is made to exams dated: 12/02/2018 ultrasound, 12/02/2018 ultrasound, 12/02/2018 mammogram, and 02/05/2017 mammogram - [facility]. An ultrasound guided biopsy using real-time ultrasound was performed for the 0.6 cm x 0.6 cm x 0.4 cm oval mass located in the right breast at 11 o'clock anterior depth 3 cm from the nipple. This was described on the previous ultrasound report. The skin was prepped in the usual manner. Local anesthetic was administered to the access site. A skin ruperto was made in the breast. A 14 gauge biopsy needle was placed adjacent to the abnormality under ultrasound guidance. Once the needle was documented to be in the correct location, three specimens were obtained using Marquee. A heart shaped clip was inserted into the biopsy cavity. A skin closure strip was applied to the access site. As a separate procedure in a separate room with a dedicated machine, post procedure digital mammographic imaging interpreted on a dedicated mammography workstation demonstrates the location device 0.5cm medial from the geometric center of the targeted area. The specimens were sent to the laboratory for pathological analysis. IMPRESSION: ULTRASOUND GUIDED BIOPSY Ultrasound guided biopsy of the 0.6 cm x 0.6 cm x 0.4 cm mass in the right breast at 11 o'clock anterior depth 3 cm from the nipple was successful with no apparent post procedure complications. Waiting for pathology results. A final report will be issued when these become available. UNILATERAL RIGHT DIGITAL DIAGNOSTIC MAMMOGRAM WITH MEDIOLATERAL CRANIOCAUDAL: 12/13/2018 Comparison is made to exams dated: 12/02/2018 ultrasound, 12/02/2018 ultrasound, 12/02/2018 mammogram, and 02/05/2017 mammogram - [facility]. The tissue of right breast is heterogeneously dense. There is a marker clip in the appropriate position in the right breast upper outer aspect anterior depth. This marker clip placement is at the biopsy site. IMPRESSION: POST PROCEDURE MAMMOGRAM FOR MARKER PLACEMENT There was a successful marker clip placement in the right breast upper outer aspect anterior depth. Based on a modified Lori Model, this patient's calculated lifetime risk of developing breast cancer is 7.7%. SUMMARY: The heart shaped biopsy clip migrated 0.5cm medial from the biopsied mass as seen on the post clip ultrasound images. Dr. Kellen Peterson M.D. jt/penrad:12/13/2018 15:51:15 copy to: LAZARA CACERES M.D., ph: [phone] Creative Services Producer(s): Samina Huang [facility], [facility]; RT Audi(Andrew)(M), [facility] Mammogram BI-RADS: Post-procedure mammogram for marker placement Normal [facility] Surgical Tissue Examon 12-13 Surgical Tissue Exam Test performed at [place] [address] NAME: TONYA LAW REQUESTING: LAZARA CACERES M.D. COPY TO: KELLEN PETERSON; [facility] FINAL DIAGNOSIS: BREAST, RIGHT 11 O'CLOCK 2-3 CM FN, CORE NEEDLE BIOPSY - FOCAL FEATURES OF FIBROADENOMA. SEE COMMENT. COMMENT: Dr. Barbara Pineda reviewed the case and agrees with the diagnosis. OPERATIVE PROCEDURE: Ultrasound guided right breast biopsy CLINICAL INFORMATION: Right breast mass 11:00 2-3 cm FN clip; Heart GROSS DESCRIPTION: Three 14g cores obtained 1038 formalin 1039 Received in formalin labeled right breast mass, 11 o'clock, 2-3 cm from nipple (heart clip) are approximately three cylindrical segments of yellow fibrofatty tissue each measuring 1.5 x 0.1 x 0.1 cm. The specimen is totally submitted in formalin in one cassette. Levels x 3. Time obtained: 10:38 on 12-13-18; time in formalin: 10:39 on 12-13-18. ARH:vishnu SCHULZ M.D. PATHOLOGIST (Electronic signature on file) Signed out: 12/14/2018 14:56 PRINTED: 12/14/2018 Page 1 of 1 Normal [facility] Comment on above: Performed By: #### L URIN #### [facility] [address] [place] [address] MAMMOGRAM DIAG WITH CAD IF P ERFORMED BILATERALon 12-02-2018 MAMMOGRAM DIAG WITH CAD IF PERFORMED BILATERAL Performed at [facility] APPROVED BY: Roosevelt Suarez MD #[id number] - MAMMOGRAM DIAG WITH CAD IF PERFORMED BILATERAL #[id number] - US BREAST AXILLA LIMITED UNILATERAL BILATERAL DIGITAL DIAGNOSTIC MAMMOGRAM WITH CAD WITH MEDIOLATERAL OBLIQUE CRANIOCAUDAL: 12/02/2018 CLINICAL: Patient presents with bilateral breast lumps, pain and discharge. Patient presents with right breast lump. Patient presents with right breast pain. Comparison is made to exam dated: 02/05/2017 mammogram - [facility]. The tissue of both breasts is heterogeneously dense. Current study was also evaluated with a Computer Aided Detection (CAD) system. No significant masses, calcifications, or other findings are seen in either breast. IMPRESSION: INCOMPLETE: NEEDS ADDITIONAL IMAGING EVALUATION There is no abnormality seen in the left breast to correspond with the pain, however, clinical followup is recommended. There is no abnormality seen in the right breast to correspond with the palpable abnormality, however, ultrasound is recommended. Based on a modified Lori Model, this patient's calculated lifetime risk of developing breast cancer is 7.7%. Please contact Centralized Scheduling at [phone] to schedule your patient to return for additional imaging. Please fax an order to [phone]. LIMITED ULTRASOUND OF RIGHT BREAST: 12/02/2018 Comparison is made to exam dated: 02/05/2017 mammogram - [facility]. Ultrasound of the right breast 11 o'clock region was performed. There is 0.5 cm x 0.6 cm x 0.5 cm oval mass with a circumscribed margin in the right breast at 11 o'clock anterior depth. This oval mass is hypoechoic with an abrupt boundary and internal echoes. This correlates as palpated. Color flow imaging demonstrates that there is an adjacent vascularity. IMPRESSION: SUSPICIOUS OF MALIGNANCY The 0.5 cm x 0.6 cm x 0.5 cm oval mass in the right breast at 11 o'clock anterior depth resembles a complex cyst, a lymph node, or a fibroadenoma and is suspicious of malignancy. An ultrasound guided biopsy is recommended. A phone call was made to the physician's office and the results were reviewed with the patient. SUMMARY: The patient will be referred to the breast surgery dept at [facility] per department protocol. Please see the separate ultrasound dictation for the left breast. Roosevelt Suarez M.D. tb/penrad:12/02/2018 14:21:14 Creative Services Producer(s): Lina Castillo (Andrew)(Miguel), [facility]; Denise Angel RDMS, [facility] letter sent: Abnormal Birad 4 & 5 OVERALL STUDY BIRADS: 4 Suspicious abnormality Normal [facility] US BREAST AXILLA LIMITED UNI LATERALon 12-02-2018 US BREAST AXILLA LIMITED UNILATERAL Performed at [facility] APPROVED BY: Roosevelt Suarez MD #[id number] - US BREAST AXILLA LIMITED UNILATERAL LIMITED ULTRASOUND OF LEFT BREAST: 12/02/2018 CLINICAL: Patient presents with left breast lump. Patient presents with left breast pain. No prior exams were available for comparison. Color flow and real-time ultrasound of the left breast 9 o'clock region were performed. IMPRESSION: NEGATIVE There is no sonographic evidence of malignancy. There is no abnormality seen in the left breast to correspond with the pain at 9 o'clock, however, clinical followup is recommended. Roosevelt eden/penrad:12/02/2018 14:24:03 Creative Services Producer(s): Denise Angel RDMS, [facility] Ultrasound BI-RADS: 1 Negative Normal [facility] US BREAST AXILLA LIMITED UNILATERAL Performed at [facility] APPROVED BY: Roosevelt Suarez MD #[id number] - MAMMOGRAM DIAG WITH CAD IF PERFORMED BILATERAL #[id number] - US BREAST AXILLA LIMITED UNILATERAL BILATERAL DIGITAL DIAGNOSTIC MAMMOGRAM WITH CAD WITH MEDIOLATERAL OBLIQUE CRANIOCAUDAL: 12/02/2018 CLINICAL: Patient presents with bilateral breast lumps, pain and discharge. Patient presents with right breast lump. Patient presents with right breast pain. Comparison is made to exam dated: 02/05/2017 mammogram - [facility]. The tissue of both breasts is heterogeneously dense. Current study was also evaluated with a Computer Aided Detection (CAD) system. No significant masses, calcifications, or other findings are seen in either breast. IMPRESSION: INCOMPLETE: NEEDS ADDITIONAL IMAGING EVALUATION There is no abnormality seen in the left breast to correspond with the pain, however, clinical followup is recommended. There is no abnormality seen in the right breast to correspond with the palpable abnormality, however, ultrasound is recommended. Based on a modified Lori Model, this patient's calculated lifetime risk of developing breast cancer is 7.7%. Please contact Centralized Scheduling at [phone] to schedule your patient to return for additional imaging. Please fax an order to [phone]. LIMITED ULTRASOUND OF RIGHT BREAST: 12/02/2018 Comparison is made to exam dated: 02/05/2017 mammogram - [facility]. Ultrasound of the right breast 11 o'clock region was performed. There is 0.5 cm x 0.6 cm x 0.5 cm oval mass with a circumscribed margin in the right breast at 11 o'clock anterior depth. This oval mass is hypoechoic with an abrupt boundary and internal echoes. This correlates as palpated. Color flow imaging demonstrates that there is an adjacent vascularity. IMPRESSION: SUSPICIOUS OF MALIGNANCY The 0.5 cm x 0.6 cm x 0.5 cm oval mass in the right breast at 11 o'clock anterior depth resembles a complex cyst, a lymph node, or a fibroadenoma and is suspicious of malignancy. An ultrasound guided biopsy is recommended. A phone call was made to the physician's office and the results were reviewed with the patient. SUMMARY: The patient will be referred to the breast surgery dept at [facility] per department protocol. Please see the separate ultrasound dictation for the left breast. Roosevelt eden/jennie:12/02/2018 14:21:14 Creative Services Producer(s): Lina Castillo (Andrew)(M), [facility]; Denise Angel RDMS, [facility] letter sent: Abnormal Birad 4 & 5 OVERALL STUDY BIRADS: 4 Suspicious abnormality Normal [facility] CT ABDOMEN AND PELVIS WITH C [facility] 12-10-2018 CT ABDOMEN AND PELVIS WITH CONTRAST Performed at [facility] APPROVED BY: Robert Bear MD EXAMINATION: CT ABDOMEN AND PELVIS WITH IV CONTRAST CLINICAL HISTORY: Epigastric pain, nausea, vomiting, diarrhea TECHNIQUE: CT of the abdomen and pelvis was performed using standard technique, scanning from just above the dome of the diaphragm to the symphysis pubis. Sagittal and coronal reconstructions were performed. M: CTAP_3 Contrast: 150 mL Omnipaque 300 IV Contrast oral: None CT Dose-Length Product: 605.73 mGy*cm CT Dose Reduction Employed: 1 COMPARISON: None. RESULT: Lower thorax: Lung bases are unremarkable. Small hiatal hernia. Liver: No mass. There is a stable 6 mm cyst in the posterior segment of the right lobe of the liver. Biliary: Gallbladder is surgically absent. There is no intrahepatic biliary dilatation. The common duct is mildly dilated measuring 8 mm. Spleen: No mass. No splenomegaly. Pancreas: No mass or duct dilation. Adrenals: No mass. Kidneys: No mass, calculus or hydronephrosis. GI tract: No dilation or wall thickening. There are innumerable diverticula within the sigmoid colon without evidence of diverticulitis. Normal appearance of the appendix. Lymph nodes: No abdominal or pelvic lymphadenopathy. Mesentery/Peritoneum: No ascites or mass. Retroperitoneum: No mass. Vasculature: The celiac axis and SMA are patent. The portal vein and branches, splenic vein, SMV, and hepatic veins are patent. No abdominal aortic or iliac artery aneurysm. Pelvis: No mass, ascites or fluid collection. Bones/Soft Tissues: There is gas within the subcutaneous fat in the left gluteal region possibly due to injection. Please correlate clinically. IMPRESSION: Sigmoid colon diverticulosis without CT evidence of diverticulitis. Normal appearance of the appendix. Small hiatal hernia. Additional incidental findings as discussed above. Normal [facility] Comprehensive Panelon 2017 Albumin [Mass/Vol] 4.3 g/dL Normal 3.4-5.0 [facility] Comment on above: Performed By: #### L P14 #### [facility] [address] [place], [place] [address] ALP [Catalytic activity/Vol] 66 U/L Normal 46-116 [facility] Comment on above: Performed By: #### L P14 #### [facility] [address] [place] [address] ALT-SGPT Blood 22 U/L Normal 14-63 [facility] Comment on above: Performed By: #### L P14 #### [facility] [address] [place] [address] Anion gap [Moles/Vol] 14 mmol/L Normal 8-20 [facility] Comment on above: Performed By: #### L P14 #### [facility] [address] [place] [address] AST-SGOT Blood 20 U/L Normal 15-37 [facility] Comment on above: Performed By: #### L P14 #### [facility] [address] [place] [address] Bilirubin Ql (U) 0.5 mg/dL Normal 0.2-1.0 [facility] Comment on above: Performed By: #### L P14 #### [facility] [address] [place] [address] Calcium [Mass/Vol] 9.2 mg/dL Normal 8.5-10.1 [facility] Comment on above: Performed By: #### L P14 #### [facility] [address] [place] [address] Chloride [Moles/Vol] 104 mmol/L Normal 98-107 [facility] Comment on above: Performed By: #### L P14 #### [facility] [address] [place] [address] CO2 Blood 26 mEq/L Normal 21-32 [facility] Comment on above: Performed By: #### L P14 #### [facility] [address] [place] [address] Creatinine [Mass/Vol] 0.79 mg/dL Normal 0.51-0.95 [facility] Comment on above: Performed By: #### L P14 #### [facility] [address] [place] [address] Glucose [Mass/Vol] 133 mg/dL High 70-99 [facility] Comment on above: Performed By: #### L P14 #### [facility] [address] [place] [address] Potassium [Moles/Vol] 3.7 mmol/L Normal 3.5-5.1 [facility] Comment on above: Performed By: #### L P14 #### [facility] [address] [place] [address] Protein [Mass/Vol] 8.0 g/dL Normal 6.4-8.2 [facility] Comment on above: Performed By: #### L P14 #### [place] [address] Sodium [Moles/Vol] 140 mmol/L Normal 136-145 [facility] Comment on above: Performed By: #### L P14 #### [place] [address] Urea nitrogen [Mass/Vol] 12 mg/dL Normal 7-25 [facility] Comment on above: Performed By: #### L P14 #### [place] [address] Urea nitrogen/Creatinine [Mass ratio] 15 mg/mg Normal 10-20 [facility] Comment on above: Performed By: #### L P14 #### [place] [address] HCG, Qual. Serumon 8 HCG, Qual. Serum Negative Normal Negative [facility] Comment on above: Performed By: #### L SHCG #### [place] [address] Hemogram/Manual Diffon 10-11 Abs. Baso 0.00 thou/cmm Normal 0.00-0.08 [facility] Comment on above: Performed By: #### L MCBD #### [place] [address] Abs. Lymph 3.74 thou/cmm High 1.50-3.65 [facility] Comment on above: Performed By: #### L MCBD #### [place] [address] Abs. [place] 0.51 thou/cmm Normal 0.20-1.00 [facility] Comment on above: Performed By: #### L MCBD #### [facility] [address] [place] [address] Abs. Neut (ANC) 5.65 thou/cmm Normal 3.00-5.67 [facility] Comment on above: Performed By: #### L MCBD #### [facility] [address] [place] [address] Basophil 0.0 % Normal [facility] Comment on above: Performed By: #### L MCBD #### [facility] [address] [place] [address] Lymphocyte 37.0 % Normal [facility] Comment on above: Performed By: #### L MCBD #### [facility] [address] [place] [address] Macrocytosis Few Normal [facility] Comment on above: Performed By: #### L MCBD #### [facility] [address] [place] [address] Monocyte 5.0 % Normal [facility] Comment on above: Performed By: #### L MCBD #### [facility] [address] [place] [address] Platelets (Bld) [#/Vol] Normal Normal [facility] Comment on above: Performed By: #### L MCBD #### [facility] [address] [place] [address] Seg Neutrophil 56.0 % Normal [facility] Comment on above: Performed By: #### L MCBD #### [facility] [address] [place] [address] Stomatocytosis Few Normal [facility] Comment on above: Performed By: #### L MCBD #### [facility] [address] [place] [address] Diff Type Manual Diff Normal [facility] Comment on above: Performed By: #### L MCBD #### [facility] [address] [place] [address] Abs. Eosin 0.20 thou/cmm Normal 0.00-0.41 [facility] Comment on above: Performed By: #### L MCBD #### [facility] [address] [place] [address] Eosinophil 2.0 % Normal [facility] Comment on above: Performed By: #### L MCBD #### [facility] [address] [place] [address] Erythrocyte distribution width (RBC) [Ratio] 12.2 % Normal 11.5-15.9 [facility] Comment on above: Performed By: #### L MCBD #### [facility] [address] [place] [address] Hematocrit (Bld) [Volume fraction] 38.4 % Normal 37.0-47.0 [facility] Comment on above: Performed By: #### L MCBD #### [facility] [address] [place] [address] Hemoglobin (Bld) [Mass/Vol] 13.0 g/dL Normal 12.0-16.0 [facility] Comment on above: Performed By: #### L MCBD #### [facility] [address] [place] [address] MCH (RBC) [Entitic mass] 33.9 pg High 27.0-31.0 [facility] Comment on above: Performed By: #### L MCBD #### [facility] [address] [place] [address] MCHC (RBC) [Mass/Vol] 33.9 % Normal 32.0-36.0 [facility] Comment on above: Performed By: #### L MCBD #### [facility] [address] [place] [address] MCV (RBC) [Entitic vol] 100.0 fl High 81.0-99.0 [facility] Comment on above: Performed By: #### L MCBD #### [facility] [address] [place] [address] Platelet mean volume (Bld) [Entitic vol] 9.7 fl Normal 7.1-10.5 [facility] Comment on above: Performed By: #### L MCBD #### [place] [address] Platelets (Bld) [#/Vol] 330 thou/cmm Normal 150-400 [facility] Comment on above: Performed By: #### L MCBD #### [facility] [address] [place], [place] [address] RBC (Bld) [#/Vol] 3.84 mil/cmm Low 4.20-5.40 [facility] Comment on above: Performed By: #### L MCBD #### [place] [address] WBC (Bld) [#/Vol] 10.1 thou/cmm Normal 4.8-10.8 [facility] Comment on above: Performed By: #### L MCBD #### [place] [address] Lactic acidon 10-11-2018 Lactate [Moles/Vol] 0.9 mmol/L Normal 0.4-2.0 [facility] Comment on above: Performed By: #### L LA #### [place] [address] Lipase Bloodon 10-11-2018 Lipase Blood 187 U/L Normal 73-393 [facility] Comment on above: Performed By: #### L LIP #### [place] [address] MDRD eGFRon 10-11-2018 GFR/1.73 sq M predicted among non-blacks MDRD (S/P/Bld) [Vol rate/Area] mL/min/{1.73_m2} Normal >60mL/min/1. 73m2 [facility] Comment on above: Result Comment: If t he patient is , multiply the result by 1.210. Performed By: #### L GFR #### [facility] [address] [place] [address] Urinalysis Routineon 018 Amorphous Urates MODERATE Abnormal None [facility] Comment on above: Performed By: #### L URIN #### [place] [id number] Appearance (U) 2+ (SLT CLOUDY) Normal [facility] Comment on above: Performed By: #### L URIN #### [facility] [address] [place] [address] Bacteria LM.HPF (Urine sed) [#/Area] FEW Abnormal None [facility] Comment on above: Performed By: #### L URIN #### [facility] [address] [place] [address] Bilirubin Urine Negative Normal Negative [facility] Comment on above: Performed By: #### L URIN #### [facility] [address] [place] [address] Color (U) YELLOW Normal [facility] Comment on above: Performed By: #### L URIN #### [facility] [address] [place] [address] Ep Cells Urine 13-20 Normal 0-5 [facility] Comment on above: Performed By: #### L URIN #### [facility] [address] [place] [address] Glucose Ql (U) Negative Normal Negative [facility] Comment on above: Performed By: #### L URIN #### [facility] [address] [place] [address] Hemoglobin,Urine Negative Normal Negative [facility] Comment on above: Performed By: #### L URIN #### [facility] [address] [place] [address] Ketone Urine Negative Normal Negative [facility] Comment on above: Performed By: #### L URIN #### [facility] [address] [place] [address] Leukocytes Esterase Negative Normal Negative [facility] Comment on above: Performed By: #### L URIN #### [facility] [address] [place] [address] Nitrites Urine Negative Normal Negative [facility] Comment on above: Performed By: #### L URIN #### [facility] [address] [place] [address] pH (U) 7.0 [pH] Normal 5.0-8.0 [facility] Comment on above: Performed By: #### L URIN #### [facility] [address] [place] [address] Protein (U) [Mass/Vol] Negative Normal Negative [facility] Comment on above: Performed By: #### L URIN #### [place] [address] RBC LM.HPF (Urine sed) [#/Area] NONE Normal 0-3 [facility] Comment on above: Performed By: #### L URIN #### [place] [address] Specific [place], Ur 1.020 Normal 1.005-1.030 [facility] Comment on above: Performed By: #### L URIN #### [place] [address] Urobilinogen,Ur 0.2 EU/dL Normal 0.0-1.0 [facility] Comment on above: Performed By: #### L URIN #### [place] [address] WBC LM.HPF (Urine sed) [#/Area] 0-2 Normal 0-5 [facility] Comment on above: Performed By: #### L URIN #### [place] [address] Comment Urines See Below Normal [facility] Comment on above: Result Comment: Volu me of urine <10 ml. Interpret microscopic result with caution. Performed By: #### L URIN #### [place] [address] CBC With Differentialon - Basophils Auto #/vol (Bld) 0.04 10*3/uL Normal 0.01-0.07 [facility] Comment on above: Performed By: #### 2 [id number] ####[facility] [address] [place] [address] Basophils/100 WBC Auto (Bld) 0.5 % Normal 0.1-1.2 [facility] Comment on above: Performed By: #### 2 [id number] ####[facility] [address] [place] [address] Eosinophils 0.25 10*3/uL Normal 0.04-0.50 [facility] Comment on above: Performed By: #### 2 [id number] ####[facility] [address] [place] [address] Eosinophils/100 leukocytes 3.1 % Normal 0.0-8.1 [facility] Comment on above: Performed By: #### 2 [id number] ####[facility] [address] [place] [address] Erythrocyte distribution width Auto Ratio (RBC) 11.9 % Low 12.0-15.4 [facility] Comment on above: Performed By: #### 2 [id number] ####[place] [address] [place] [address] Erythrocytes (RBC) 0.00 10*3/uL Normal [facility] Comment on above: Performed By: #### 2 058245 ####[address] [address] Erythrocytes (RBC) 3.69 10*6/uL Low 3.85-5.10 [facility] Comment on above: Performed By: #### 2 [id number] ####[facility] [address] [place] [address] Erythrocytes (RBC) 0.0 /100{WBCs} Normal [facility] Comment on above: Performed By: #### 2 [id number] ####[place] [address] [place] [address] Hematocrit (HCT) 37.5 % Normal 36.5-46.6 [facility] Comment on above: Performed By: #### 2 590741 ####[facility] [address] [place] [address] Hemoglobin mass conc (Bld) 12.7 g/dL Normal 11.8-15.3 [facility] Comment on above: Performed By: #### 2 [id number] ####[facility] [address] [place] [address] Imm Grans Absolute 0.02 10*3/uL Normal 0.00-0.21 [facility] Comment on above: Performed By: #### 2 [id number] ####[facility] [address] [place] [address] Immature granulocytes #/vol (Bld) 0.2 % Normal [facility] Comment on above: Performed By: #### 2 [id number] ####[facility] [address] [place] [address] Lymphocytes 3.67 10*3/uL High 0.40-2.84 [facility] Comment on above: Performed By: #### 2 964557 ####[facility] [address] [place] [address] Lymphocytes/100 leukocytes 44.8 % Normal 15.7-50.5 [facility] Comment on above: Performed By: #### 2 928514 ####[facility] [address] [place] [address] MCH 34.4 pg High 27.5-33.0 [facility] Comment on above: Performed By: #### 2 671701 ####[facility] [address] [place] [address] MCHC mass conc (RBC) 33.9 g/dL Normal 30.1-35.0 [facility] Comment on above: Performed By: #### 2 036402 ####[facility] [address] [place] [address] MCV 101.6 fL High 85.4-100.0 [facility] Comment on above: Performed By: #### 2 439427 ####[facility] [address] [place] [address] Monocytes 0.56 10*3/uL Normal 0.25-0.83 [facility] Comment on above: Performed By: #### 2 854762 ####[facility] [address] [place] [address] Monocytes/100 leukocytes 6.8 % Normal 4.8-12.7 [facility] Comment on above: Performed By: #### 2 095730 ####[facility] [address] [place] [address] Neutrophils 3.65 10*3/uL Normal 1.95-6.85 [facility] Comment on above: Performed By: #### 2 759277 ####[facility] [address] [place] [address] Neutrophils/100 leukocytes 44.6 % Normal 36.8-73.2 [facility] Comment on above: Performed By: #### 2 416016 ####[facility] [address] [place] [address] Platelet mean volume (PMV) 10.1 fL Normal 9.9-12.1 [facility] Comment on above: Performed By: #### 2 477181 ####[facility] [address] [place] [address] Platelets 231 10*3/uL Normal 155-404 [facility] Comment on above: Performed By: #### 2 747824 ####[facility] [address] [place] [address] RDW SD 44.7 fL Normal 39.3-48.6 [facility] Comment on above: Performed By: #### 2 908551 ####[facility] [address] [place] [address] WBC (Leukocytes) 8.2 10*3/uL Normal 4.4-9.9 [facility] Comment on above: Performed By: #### 2 440686 ####[facility] [address] [place] [address] CHEST 2 VIEWS PA AND LATon 1 11-28-2016 CHEST 2 VIEWS PA AND LAT DATE OF EXAM: Sep 28 2017 5:53PMCLINICAL HISTORY/ Name: WILLIE LAWTUDY:CHEST 2 VIEWS PA AND LAT; 09/28/2017 5:53 pmINDICATION:Non Trauma.COMPARISON:Port able chest JuneCCESSION NUMBER(S):[id number] SAMUEL CLINICIAN:CHAKA TORRES:Fronta l and lateral views of the chestFINDINGS:LINES AND TUBES: n/aHEART AND MEDIASTINUM:Heart size: Within normal limitsThoracic aorta: Within expected limitsHila and nonvascular: within normal limitsOther: n/aPULMONARY VESSELS:Within normal limits; no sign of edemaLUNGS AND AIRWAYS:Clear; no acute airspace diseasePLEURA:Effusion : Both sides negativePneumothorax: Both sides negativeOther: n/aBONES:No acute findingsCONCLUSION: IMPRESSION:NO ACUTE DISEASE IN THE CHEST Normal [facility] CT HEAD/BRAIN W/O CONTRASTon 09-28-2017 CT HEAD/BRAIN W/O CONTRAST DATE OF EXAM: Sep 28 2017 6:23PMCLINICAL HISTORY/ Name: PREETI LAWUDY:CT HEAD/BRAIN W/O CONTRAST; 09/28/2017 6:23 pmINDICATION:Headache. Occipital and bilateral temporal headaches, nausea, dizziness, blurred vision bilaterally.COMPARISON :06/23/2015CCESSION NUMBER(S):[id number] DEREDI CLINICIAN:KENISHA CRAWFORDTECHNIQUE:Noncon trast axial CT scan of head was performed. Angled reformats in brain and bone windows were generated. The images were reviewed in bone, brain, blood and soft tissue windows.FINDINGS:CSF Spaces: The ventricles, sulci and basal cisterns are within normal limits.Parenchyma: No infarct, hemorrhage or mass is noted.Calvarium: The calvarium is unremarkable.Paranasal sinuses and mastoids: The anterior ethmoid air cells have partial opacification. No air-fluid levels are noted.CONCLUSION: IMPRESSION:Normal CT of the brain, similar to the prior examNo evidence of intracranial hemorrhage or displaced skull fracture. Normal [facility] Comprehensive Metabolic Pane hattie 09-28-2017 Alanine aminotransferase (ALT) 16 U/L Normal 7-45 [facility] Comment on above: Performed By: #### 1 [id number] ####[facility] [address] [place] [address] Albumin 4.6 g/dL Normal 3.4-5.0 [facility] Comment on above: Performed By: #### 1 [id number] ####[facility] [address] [place] [address] Albumin/Globulin Ratio 1.7 {ratio} Normal 0.9-2.4 [facility] Comment on above: Performed By: #### 1 [id number] ####[facility] [address] [place] [address] Alkaline phosphatase (ALP) 61 U/L Normal 45-117 [facility] Comment on above: Performed By: #### 1 086981 ####[facility] [address] [place] [address] Anion gap 11 mmol/L Normal 10-20 [facility] Comment on above: Performed By: #### 1 479246 ####[facility] [address] [facility] [place] [address] Aspartate aminotransferase (AST) 24 U/L Normal 13-39 [facility] Comment on above: Performed By: #### 1 452129 ####[facility] [address] [place] [address] Bicarbonate (HCO3) 27 mmol/L Normal 21-32 [facility] Comment on above: Performed By: #### 1 338818 ####[facility] [address] [place] [address] Bilirubin (total) 0.7 mg/dL Normal 0.0-1.2 [facility] Comment on above: Performed By: #### 1 901321 ####[facility] [address] [place] [address] BUN/Creatinine Ratio 9 mg/mg Normal 5-25 [facility] Comment on above: Performed By: #### 1 430127 ####[facility] [address] [place] [address] Calcium 9.5 mg/dL Normal 8.6-10.3 [facility] Comment on above: Performed By: #### 1 866838 ####[facility] [address] [place] [address] Chloride 104 mmol/L Normal 98-107 [facility] Comment on above: Performed By: #### 1 178770 ####[facility] [address] [place] [address] Creatinine 0.82 mg/dL Normal 0.50-1.05 [facility] Comment on above: Performed By: #### 1 489297 ####[facility] [address] [place] [address] eGFR (MDRD) mL/min/{1.73_m2} Normal [facility] Comment on above: Result Comment: Inte rpretation for Chronic Kidney Disease:Stages 1&2 >60 Healthy or potential kidney damage.Mild decrease of GFR.Stage 3 30-59 Moderate decrease of GFR.Stage 4 15-29 Severe decrease of GFR.Stage 5 <15 Kidney failure or on dialysis. Performed By: #### 1 [id number] ####[facility] [address] [place] [address] Glucose mass conc 90 mg/dL Normal 70-100 [facility] Comment on above: Performed By: #### 1 810959 ####[facility] [address] [place] [address] Potassium molar conc 4.0 mmol/L Normal 3.5-5.1 [facility] Comment on above: Performed By: #### 1 498297 ####[facility] [address] [place] [address] Protein 7.3 g/dL Normal 6.4-8.2 [facility] Comment on above: Performed By: #### 1 252365 ####[facility] [address] [place] [address] Sodium 138 mmol/L Normal 136-145 [facility] Comment on above: Performed By: #### 1 357698 ####[facility] [address] [place] [address] Urea nitrogen 7 mg/dL Normal 6-23 [facility] Comment on above: Performed By: #### 1 930494 ####[facility] [address] [place] [address] Culture Group A Strepon 09-03 Culture Group A Strep FINAL REPORT THROT No Group A Beta Streptococcus isolated Normal [facility] Comment on above: Performed By: #### 6 253926 ####[facility] [address] [place] [address] Influenza A,Bon 09-28-2017 Influenza A, Rapid Ag Negative Normal Negative [facility] Comment on above: Performed By: #### 5 144765 ####[facility] [address] [place] [address] Influenza B, Rapid Ag Negative Normal Negative [facility] Comment on above: Performed By: #### 5 087884 ####[facility] [address] [place] [address] Strep (GpA) Rapidon 09-28-20 17 Rapid strep test Negative Normal Negative [facility] Comment on above: Performed By: #### 5 612041 ####[facility] [address] [place] [address] Urinalysis with Reflex Cultu reon 09-28-2017 Ascorbic Acid Negative Normal Negative [facility] Comment on above: Performed By: #### U ARFX ####[facility] [address] [place] [address] Automated Urine Microscopy Not indicated Normal [facility] Comment on above: Performed By: #### U ARFX ####[facility] [address] [place] [address] Bilirubin Ql (U) Negative Normal Negative [facility] Comment on above: Performed By: #### U ARFX ####[facility] [address] [place] [address] Blood Negative Normal Negative [facility] Comment on above: Performed By: #### U ARFX ####[facility] [address] [place] [address] Glucose mass conc Negative Normal Negative [facility] Comment on above: Performed By: #### U ARFX ####[facility] [address] [place] [address] Protein Negative Normal Negative [facility] Comment on above: Performed By: #### U ARFX ####[facility] [address] [place] [address] Urine, appearance Clear Normal Clear [facility] Comment on above: Performed By: #### U ARFX ####[facility] [address] [place] [address] Urine, color Yellow Normal [facility] Comment on above: Performed By: #### U ARFX ####[facility] [address] [facility] [place] [address] Urine, ketones presence Negative Normal Negative [facility] Comment on above: Performed By: #### U ARFX ####[facility] [address] [place] [address] Urine, nitrite presence Negative Normal Negative [facility] Comment on above: Performed By: #### U ARFX ####[facility] [address] [facility] [place] [address] Urine, pH 7.0 [pH] Normal 5.0-9.0 [facility] Comment on above: Performed By: #### U ARFX ####[facility] [address] [place] [address] Urine, specific gravity 1.009 Normal 1.003-1.035 [facility] Comment on above: Performed By: #### U ARFX ####[facility] [address] [place] [address] Urine, urobilinogen <2.0 Normal Negative [facility] Comment on above: Performed By: #### U ARFX ####[facility] [address] [place] [address] WBC (Leukocytes) Negative Normal Negative [facility] Comment on above: Performed By: #### U ARFX ####[facility] [address] [place] [address] Vital Signs Date Time Vital Sign Value Performing Clinician Durga walker 09-19-2024 14:29-0500 Blood Pressure Cuff Size MRS. ELOISA PINEDA [facility] 09-19-2024 14:29-0500 Blood Pressure Location MRS. ELOISA PINEDA [facility] 09-19-2024 14:29-0500 Blood Pressure Method MRS. ELOISA PINEDA [facility] 09-19-2024 14:29-0500 Body height 158.5 cm MRS. ELOISA PINEDA [facility] 09-19-2024 14:29-0500 Body temperature 97.7 [degF] MRS. ELOISA PINEDA [facility] 09-19-2024 14:29-0500 Body weight 65.4 kg MRS. ELOISA PINEDA [facility] 09-19-2024 14:29-0500 Body weight 26.03 kg/m2 MRS. ELOISA PINEDA [facility] 09-19-2024 14:29-0500 Diastolic Blood Pressure Non-Invasive 80 mm[Hg] MRS. ELOISA PINEDA [facility] 09-19-2024 14:29-0500 Heart rate 68 /min MRS. ELOISA PINEDA [facility] 09-19-2024 14:29-0500 Respiratory rate 16 /min MRS. ELOISA PINEDA [facility] 09-19-2024 14:29-0500 Systolic Blood Pressure Non-Invasive 120 mm[Hg] MRS. ELOISA PINEDA [facility] 06-22-2024 10:41-0400 Diastolic blood pressure 88 mm[Hg] Eloisa PINEDA [facility] 06-22-2024 10:41-0400 Heart rate 64 /min Eloisa PINEDA [facility] 06-22-2024 10:41-0400 SaO2% (BldA) [Mass fraction] 100 % Eloias PINEDA [facility] 06-22-2024 10:41-0400 Systolic blood pressure 138 mm[Hg] Eloisa PINEDA [facility] 07-16-2023 14:44-0400 Diastolic blood pressure 87 mm[Hg] Eloisa PINEDA [facility] 07-16-2023 14:44-0400 Heart rate 69 /min Eloisa PINEDA [facility] 07-16-2023 14:44-0400 SaO2% (BldA) [Mass fraction] 100 % Eloisa PINEDA [facility] 07-16-2023 14:44-0400 Systolic blood pressure 126 mm[Hg] Eloisa PINEDA [facility] 11-20-2022 10:43-0500 Body height 160.02 cm Vick Smith Work Phone: [facility] 100 Work Phone: 11-20-2022 10:43-0500 Body mass index (BMI) [Ratio] 26.64 kg/m2 Vick Smith Work Phone: [facility] Work Phone: 11-20-2022 10:43-0500 Body surface area Derived from formula 1.71 m2 Vickroma Smith Work Phone: [facility] Work Phone: 11-20-2022 10:43-0500 Body temperature 96.3 [degF] Vick Smith Work Phone: [facility] Work Phone: 11-20-2022 10:43-0500 Body weight 68.21 kg Vick Smith Work Phone: [facility] Work Phone: 11-20-2022 10:43-0500 Diastolic blood pressure 80 mm[Hg] Vick Smith Work Phone: [facility] 100 Work Phone: 11-20-2022 10:43-0500 Heart rate 76 /min Vick Smith Work Phone: [facility] 100 Work Phone: 11-20-2022 10:43-0500 Respiratory rate 14 /min Vick Smith Work Phone: [facility] 100 Work Phone: 11-20-2022 10:43-0500 SaO2% (BldA) [Mass fraction] 97 % Vick Smith Work Phone: [facility] 100 Work Phone: 11-20-2022 10:43-0500 Systolic blood pressure 124 mm[Hg] Vick Smith Work Phone: [facility] 100 Work Phone: 09-17-2022 10:24-0500 [facility] 10:24-0500 Body temperature 98.06 [degF] Michelle [facility] 09-17-2022 10:24-0500 Diastolic blood pressure 74 mm[Hg] Michelle Powers [facility] 09-17-2022 10:24-0500 Heart rate 59 /min [facility] 09-17-2022 10:24-0500 SaO2% (BldA) [Mass fraction] 97 % Michelle [facility] 09-17-2022 10:24-0500 Systolic blood pressure 116 mm[Hg] [facility] 02-24-2022 13:40-0400 Body height 160.02 cm Vick Smith [facility]: [facility] Work Phone: 02-24-2022 13:40-0400 Body mass index (BMI) [Ratio] 26.97 kg/m2 Vick Smith Work Phone: [facility] Work Phone: 02-24-2022 13:40-0400 Body surface area Derived from formula 1.72 m2 Vick Smith Work Phone: [facility] Work Phone: 02-24-2022 13:40-0400 Body temperature 96.3 [degF] Vick Smith Work Phone: [facility] Work Phone: 02-24-2022 13:40-0400 Body weight 69.06 kg Vick Smith Work Phone: [facility] Work Phone: 02-24-2022 13:40-0400 Diastolic blood pressure 74 mm[Hg] Vick Smith Work Phone: [facility] Work Phone: 02-24-2022 13:40-0400 Heart rate 75 /min Vick Smith Work Phone: [facility] Work Phone: 02-24-2022 13:40-0400 Respiratory rate 14 /min Vick Smith [facility] Work Phone: 02-24-2022 13:40-0400 SaO2% (BldA) [Mass fraction] 98 % Vick Smith Work Phone: [facility] Work Phone: 02-24-2022 13:40-0400 Systolic blood pressure 124 mm[Hg] iVck Smith Work Phone: [facility] 100 Work Phone: 08-19-2021 19:00-0400 Diastolic blood pressure 70 mm[Hg] Eloisa Robuck Other Phone: [facility] 08-19-2021 19:00-0400 Heart rate 62 /min Eloisa Robuck Other Phone: [facility] 08-19-2021 19:00-0400 Respiratory rate 16 /min Eloisa Robuck Other Phone: [facility] 08-19-2021 19:00-0400 SaO2% (BldA) [Mass fraction] 98 % Eloisa Robuck Other Phone: [facility] 08-19-2021 19:00-0400 Systolic blood pressure 125 mm[Hg] Eloisa Robuck Other Phone: [facility] 08-19-2021 15:25-0400 Body height 162.5 cm Eloisa Robuck Other Phone: [facility] 08-19-2021 15:25-0400 Body temperature 97.16 [degF] Eloisa Robuck Other Phone: [facility] 08-19-2021 15:25-0400 Body weight 59 kg Eloisa Robuck Other Phone: [facility] Encounters Encounter Date Encounter Type Care Provider Facility Start: 09-23-2024 End: 09-23-2024 ambulatory MI SANTOS POT PUNCHER - EDUCATION COORDINATOR Facility:[facility] Start: 09-23-2024 End: 09-23-2024 Patient encounter procedure MI SANTOS POT PUNCHER - EDUCATION COORDINATOR [facility] Start: 09-22-2024 End: 09-26-2024 ambulatory MI Soliman DANIELLE POT PUNCHER - EDUCATION COORDINATOR Facility:[facility] Start: 09-22-2024 End: 09-26-2024 Outreach Lab MI SANTOS POT PUNCHER - EDUCATION COORDINATOR [facility] Start: 09-15-2024 End: 09-19-2024 ambulatory MRS. ELOISA PINEDA [facility] [place] Start: 09-15-2024 End: 09-19-2024 Outreach Lab MRS. ELOISA PINEDA [facility] Start: 06-22-2024 End: 06-22-2024 ambulatory Eloisa E ROBUCK Facility: [place] Start: 06-22-2024 End: 06-22-2024 Patient encounter procedure Eloisa E ROBUCK [facility] Start: 10-20-2023 End: 10-20-2023 ambulatory DO Josee Sheridan Facility:[facility] [address] Start: 10-20-2023 End: 10-20-2023 Off-Site Josee Sheridan [facility] Start: 08-13-2023 End: 08-13-2023 ambulatory Eloisa E ROBUCK Facility:[facility] [place] Start: 08-13-2023 End: 08-13-2023 Patient encounter procedure Eloisa E ROBUCK [facility] Start: 07-17-2023 ambulatory Eloisa ROBUCK Facility: [facility] Start: 07-16-2023 End: 07-16-2023 ambulatory Eloisa E ROBUCK Facility: [place] Start: 07-16-2023 End: 07-16-2023 Patient encounter procedure Eloisa E ROBUCK [facility] Start: 05-13-2023 End: 05-13-2023 Patient encounter procedure Eloisa PINEDA [facility] Start: 11-25-2022 AUDIT Vick Langeo n Work Phone: [facility] Work Phone: Start: 11-21-2022 Chart Update Vick Janak Langeo n Work Phone: [facility] Work Phone: Start: 11-20-2022 Office outpatient vi sit 25 minutes Vick Smith Work Phone: [facility] Work Phone: Start: 11-20-[address] Vick Smith Facility:[id number] Start: 09-17-2022 End: 09-17-2022 Patient encounter procedure Michelle Powers [facility] Start: 05-27-[address] Vick Smith Facility:[id number] Start: 04-30-2022 AUDIT Vick Sutherland n Work Phone: [facility] Work Phone: Start: 03-28-[address] Vick Smith Facility:[id number] Start: 02-26-2022 Result Review Vick Langeo n Work Phone: [facility] Work Phone: Start: 02-26-2022 Chart Update Vick Sutherland n Work Phone: [facility] Work Phone: Start: 02-24-2022 Office outpatient ne w 45 minutes Vick Smith Work Phone: [facility] 100 Work Phone: Start: 02-24-[address] Vick Smith Facility:[id number] Start: 01-10-2022 ambulatory Ms. Eloisa Pineda Facility:[id number] Start: 08-19-2021 End: 08-19-2021 Emergency department patient visit Vidal Srinath [facility] Start: 09-28-2017 End: 09-28-2017 Emergency department patient visit NO FAMILY DOCTOR NO FAMILY DOCTOR Facility:[facility] Procedures Date Procedure Procedure Detail Performing Clinician Start: 05-27-2022 Follow-up visit Start: 03-28-2022 Follow-up visit Start: 03-25-2022 Follow-up visit Start: 08-19-2021 End: 08-19-2021 EKG impression Vidal Yo Start: 11-02-2007 Hysterectomy Michelle eaton Start: 11-02-1994 Cholecystectomy Michelle Rooney H/O: hysterectomy History of par tial hysterectomy MRS. ELOISA PINEDA Hysterectomy Vick Smith Work Phone: Comment on above: She did not have the BSO.; Operation on gallbladder Den roma E Bandar Work Phone: Plan of Treatment Date Care Activity Detail Author Start: 02-18-2023 FUV, Provider: Vick Smith, Status: Pen, Time: 10:15 AM FUV, Provider: Vick Smith, Status: Pen, Time: 10:15 AM [facility] 100 Work Phone: Start: 05-27-2022 FUV, Provider: Vick Smith, Status: Pen, Time: 11:00 AM FUV, Provider: Vick Smith, Status: Pen, Time: 11:00 AM [facility] 100 Work Phone: Immunizations Immunization Date Immunization Notes Care Provider Fa cility NEGATED: Highlighted row has not occurred!07-16-2023 influenza virus vaccine, unspecified formulation Eloisa CONDONWOOD [facility] NEGATED: Highlighted row has not occurred!09-17-2022 influenza virus vaccine, unspecified formulation Michelle Powers [facility] Payers Date Payer Category Payer Self-pay 2023 Unknown [id number] 1975 Unknown [id number] 2.16. [id number] 1975 Unknown [id number] 2.16. [id number] 1975 Unknown [id number] 2.16. [id number] 1975 Unknown [id number] 2.16. [id number] 1975 Unknown [id number] 2.16. [id number] 1975 Unknown [id number] 2.16.8 [id number] 1975 Unknown [id number] 2.16.8 [id number] 1975 Unknown [id number] 2.16.8 [id number] 1975 Unknown [id number] 2.16.8 [id number] 1975 Unknown [id number] 2.16.8 [id number] 1975 Unknown [id number] 2.16.8 [id number] 1975 Unknown [id number] 2.16.8 [id number] Unknown [id number] Unknown Social History Date Type Detail Facility [facility] Tobacco smoking consumption unknown [facility] Consumes alcohol Consumes alcohol [facility] Work Phone: Start: 09-17-2022 End: 09-19-2024 Tobacco smoking status Heavy tobacco smoker (finding) [facility] Tobacco smoking status Never [facility] Sex Assigned At Female [facility] Start: 07-16-2023 End: 06-22-2024 Tobacco smoking status Light tobacco smoker (finding) [facility] Sex Assigned At Female [facility] Functional Status Date Assessment Result Facility 09-17-2022 Functional Status N/A [facility] Clinical Notes 05-24-2021 to 09-19-2024 RadiologyLaboratoryRadiologyLaboratoryRadiologyLaboratoryRadiologyLaboratoryRadi ologyRadiology Note Date & Type Note Facility 09-19-2024 Evaluation + Plan note Future Scheduled TestsMA Mammo Diagnostic Bilateral w/Dejuan 09/19/24MA Mammo Screening Bilateral w/ Dejuan 09/19/24US Breast Bilateral Complete 09/19/24 [facility] 06-22-2024 Evaluation + Plan note Diagnostic Tests PendingComprehensive Metabolic Panel 06/22/24CBC w/ Auto Diff 06/22/24Lipid Panel 06/22/24TSH With T4fr Reflex 06/22/24 Future Scheduled TestsTSH With T4fr Reflex 07/16/23Comprehensive Metabolic Panel 07/16/23Lipid Panel 07/16/23CT Chest, Low Dose Screening 07/16/23 [facility] 10-20-2023 Hospital Discharge instructions Patient Education 10/20/2023 07:27:16 Steps to Quit Smoking Steps to Quit Smoking Smoking tobacco is the leading cause of preventable . It can affect almost every organ in the body. Smoking puts you and those around you at risk for developing many serious chronic diseases. Quitting smoking can be very challenging. Do not get discouraged if you are not successful the first time. Some people need to make many attempts to quit before they achieve long-term success. Do your best to stick to your quit plan, and talk with your health care provider if you have any questions or concerns. How do I get ready to quit? When you decide to quit smoking, create a plan to help you succeed. Before you quit: Pick a date to quit. Set a date within the next 2 weeks to give you time to prepare. Write down the reasons why you are quitting. Keep this list in places where you will see it often. Tell your family, friends, and co-workers that you are quitting. Support from people you are close to can make quitting easier. Talk with your health care provider about your options for quitting smoking. Find out what treatment options are covered by your health insurance. Identify people, places, things, and activities that make you want to smoke (triggers). Avoid them. What first steps can I take to quit smoking? Throw away all cigarettes at home, at work, and in your car. Throw away smoking accessories, such as ashtrays and lighters. Clean your car. Make sure to empty the ashtray. Clean your home, including curtains and carpets. What strategies can I use to quit smoking? Talk with your health care provider about combining strategies, such as taking medicines while you are also receiving in-person counseling. Using these two strategies together makes you more likely to succeed in quitting than if you used either strategy on its own. If you are or , talk with your health care provider about finding counseling or other support strategies to quit smoking. Do not take medicine to help you quit smoking unless your health care provider tells you to. Quit right away Quit smoking completely, instead of gradually reducing how much you smoke over a period of time. Stopping smoking right away may be more successful than gradually quitting. Attend in-person counseling to help you build problem-solving skills. You are more likely to succeed in quitting if you attend counseling sessions regularly. Even short sessions of 10 minutes can be effective. Take medicine You may take medicines to help you quit smoking. Some medicines require a prescription. You can also purchase uqkh-wxa-jufmliw medicines. Medicines may have nicotine in them to replace the nicotine in cigarettes. Medicines may: Help to stop cravings. Help to relieve withdrawal symptoms. Your health care provider may recommend: Nicotine patches, gum, or lozenges. Nicotine inhalers or sprays. Non-nicotine medicine that you take by mouth. Find resources Find resources and support systems that can help you quit smoking and remain smoke-free after you quit. These resources are most helpful when you use them often. They include: Online chats with a counselor. Telephone quitlines. Printed self-help materials. Support groups or group counseling. Text messaging programs. Mobile phone apps or applications. Use apps that can help you stick to your quit plan by providing reminders, tips, and encouragement. Examples of free services include Quit Guide from the CDC and smokefree.gov What can I do to make it easier to quit? Reach out to your family and friends for support and encouragement. Call telephone quitlines, such as 0-096-LTFB-NOW, reach out to support groups, or work with a counselor for support. Ask people who smoke to avoid smoking around you. Avoid places that trigger you to smoke, such as bars, parties, or smoke-break areas at work. Spend time with people who do not smoke. Lessen the stress in your life. Stress can be a smoking trigger for some people. To lessen stress, try: ?Exercising regularly. ?Doing deep-breathing exercises. ?Doing yoga. ?Meditating. What benefits will I see if I quit smoking? Over time, you should start to see positive results, such as: Improved sense of smell and taste. Decreased coughing and sore throat. Slower heart rate. Lower blood pressure. Clearer and healthier skin. The ability to breathe more easily. Fewer sick days. Summary Quitting smoking can be very challenging. Do not get discouraged if you are not successful the first time. Some people need to make many attempts to quit before they achieve long-term success. When you decide to quit smoking, create a plan to help you succeed. Quit smoking right away, not slowly over a period of time. Find resources and support systems that can help you quit smoking and remain smoke-free after you quit. This information is not intended to replace advice given to you by your health care provider. Make sure you discuss any questions you have with your health care provider. Document Revised: 10/10/2022 Document Reviewed: 10/10/2022 [employer] Patient Education 2022 [employer]. Follow Up Care 10/19/2023 17:34:07 With:Josee Sheridan DO, [facility] Address: When:Within 6 Month(s) [facility] [place] 07-16-2023 Hospital Discharge instructions Patient Education 07/16/2023 15:07:10 Steps to Quit Smoking, Eqxt-fl-Rssj Steps to Quit Smoking Smoking tobacco is the leading cause of preventable . It can affect almost every organ in the body. Smoking puts you and people around you at risk for many serious, long-lasting (chronic) diseases. Quitting smoking can be hard, but it is one of the best things that you can do for your health. It is never too late to quit. Do not give up if you cannot quit the first time. Some people need to try many times to quit. Do your best to stick to your quit plan, and talk with your doctor if you have any questions or concerns. How do I get ready to quit? Pick a date to quit. Set a date within the next 2 weeks to give you time to prepare. Write down the reasons why you are quitting. Keep this list in places where you will see it often. Tell your family, friends, and co-workers that you are quitting. Their support is important. Talk with your doctor about the choices that may help you quit. Find out if your health insurance will pay for these treatments. Know the people, places, things, and activities that make you want to smoke (triggers). Avoid them. What first steps can I take to quit smoking? Throw away all cigarettes at home, at work, and in your car. Throw away the things that you use when you smoke, such as ashtrays and lighters. Clean your car. Empty the ashtray. Clean your home, including curtains and carpets. What can I do to help me quit smoking? Talk with your doctor about taking medicines and seeing a counselor. You are more likely to succeed when you do both. If you are or : Talk with your doctor about counseling or other ways to quit smoking. Do not take medicine to help you quit smoking unless your doctor tells you to. Quit right away Quit smoking completely, instead of slowly cutting back on how much you smoke over a period of time. Stopping smoking right away may be more successful than slowly quitting. Go to counseling. In-person is best if this is an option. You are more likely to quit if you go to counseling sessions regularly. Take medicine You may take medicines to help you quit. Some medicines need a prescription, and some you can buy ixji-zpf-bdreszt. Some medicines may contain a drug called nicotine to replace the nicotine in cigarettes. Medicines may: Help you stop having the desire to smoke (cravings). Help to stop the problems that come when you stop smoking (withdrawal symptoms). Your doctor may ask you to use: Nicotine patches, gum, or lozenges. Nicotine inhalers or sprays. Non-nicotine medicine that you take by mouth. Find resources Find resources and other ways to help you quit smoking and remain smoke-free after you quit. They include: Online chats with a counselor. Phone quitlines. Printed self-help materials. Support groups or group counseling. Text messaging programs. Mobile phone apps. Use apps on your mobile phone or tablet that can help you stick to your quit plan. Examples of free services include Quit Guide from the CDC and smokefree.gov What can I do to make it easier to quit? Talk to your family and friends. Ask them to support and encourage you. Call a phone quitline, such as 6-402-BARJQueweyNOW, reach out to support groups, or work with a counselor. Ask people who smoke to not smoke around you. Avoid places that make you want to smoke, such as: ?Bars. ?Parties. ?Smoke-break areas at work. Spend time with people who do not smoke. Lower the stress in your life. Stress can make you want to smoke. Try these things to lower stress: ?Getting regular exercise. ?Doing deep-breathing exercises. ?Doing yoga. ?Meditating. What benefits will I see if I quit smoking? Over time, you may have: A better sense of smell and taste. Less coughing and sore throat. A slower heart rate. Lower blood pressure. Clearer skin. Better breathing. Fewer sick days. Summary Quitting smoking can be hard, but it is one of the best things that you can do for your health. Do not give up if you cannot quit the first time. Some people need to try many times to quit. When you decide to quit smoking, make a plan to help you succeed. Quit smoking right away, not slowly over a period of time. When you start quitting, get help and support to keep you smoke-free. This information is not intended to replace advice given to you by your health care provider. Make sure you discuss any questions you have with your health care provider. Document Revised: 10/10/2022 Document Reviewed: 10/10/2022 [employer] Patient Education 2022 [employer]. 07/16/2023 15:06:48 Obesity, Adult, Jqui-rj-Gbjc Obesity, Adult Obesity is having too much body fat. Being obese means that your weight is more than what is healthy for you. BMI (body mass index) is a number that explains how much body fat you have. If you have a BMI of 30 or more, you are obese. Obesity can cause serious health problems, such as: Stroke. Coronary artery disease (CAD). Type 2 diabetes. Some types of cancer. High blood pressure (hypertension). High cholesterol. Gallbladder stones. Obesity can also contribute to: Osteoarthritis. Sleep apnea. Infertility problems. What are the causes? Eating meals each day that are high in calories, sugar, and fat. Drinking a lot of drinks that have sugar in them. Being born with genes that may make you more likely to become obese. Having a medical condition that causes obesity. Taking certain medicines. Sitting a lot (having a sedentary lifestyle). Not getting enough sleep. What increases the risk? Having a family history of obesity. Living in an area with limited access to: ?[place], recreation centers, or sidewalks. ?Healthy food choices, such as grocery stores and [place]. What are the signs or symptoms? The main sign is having too much body fat. How is this treated? Treatment for this condition often includes changing your lifestyle. Treatment may include: Changing your diet. This may include making a healthy meal plan. Exercise. This may include activity that causes your heart to beat faster (aerobic exercise) and strength training. Work with your doctor to design a program that works for you. Medicine to help you lose weight. This may be used if you are not able to lose one pound a week after 6 weeks of healthy eating and more exercise. Treating conditions that cause the obesity. Surgery. Options may include gastric banding and gastric bypass. This may be done if: ?Other treatments have not helped to improve your condition. ?You have a BMI of 40 or higher. ?You have life-threatening health problems related to obesity. Follow these instructions at home: Eating and drinking Follow advice from your doctor about what to eat and drink. Your doctor may tell you to: ?Limit fast food, sweets, and processed snack foods. ?Choose low-fat options. For example, choose low-fat milk instead of whole milk. ?Eat five or more servings of fruits or vegetables each day. ?Eat at home more often. This gives you more control over what you eat. ?Choose healthy foods when you eat out. ?Learn to read food labels. This will help you learn how much food is in one serving. ?Keep low-fat snacks available. ?Avoid drinks that have a lot of sugar in them. These include soda, fruit juice, iced tea with sugar, and flavored milk. Drink enough water to keep your pee (urine) pale yellow. Do not go on fad diets. Physical activity Exercise often, as told by your doctor. Most adults should get up to 150 minutes of moderate-intensity exercise every week.Ask your doctor: ?What types of exercise are safe for you. ?How often you should exercise. Warm up and stretch before being active. Do slow stretching after being active (cool down). Rest between times of being active. Lifestyle Work with your doctor and a food expert (dietitian) to set a weight-loss goal that is best for you. Limit your screen time. Find ways to reward yourself that do not involve food. Do not drink alcohol if: ?Your doctor tells you not to drink. ?You are , may be , or are planning to become . If you drink alcohol: ?Limit how much you have to: ?0 1 drink a day for women. ?0 2 drinks a day for men. ?Know how much alcohol is in your drink. In the [place] one drink equals one 12 oz bottle of beer (355 mL), one 5 oz glass of wine (148 mL), or one 1 oz glass of hard liquor (44 mL). General instructions Keep a weight-loss journal. This can help you keep track of: ?The food that you eat. ?How much exercise you get. Take bhwv-poe-hlyjpbk and prescription medicines only as told by your doctor. Take vitamins and supplements only as told by your doctor. Think about joining a support group. Pay attention to your mental health as obesity can lead to depression or self esteem issues. Keep all follow-up visits. Contact a doctor if: You cannot meet your weight-loss goal after you have changed your diet and lifestyle for 6 weeks. You are having trouble breathing. Summary Obesity is having too much body fat. Being obese means that your weight is more than what is healthy for you. Work with your doctor to set a weight-loss goal. Get regular exercise as told by your doctor. This information is not intended to replace advice given to you by your health care provider. Make sure you discuss any questions you have with your health care provider. Document Revised: 05/27/2022 Document Reviewed: 05/27/2022 [employer] Patient Education 2022 [employer]. Follow Up Care 06/10/2023 13:48:58 With:Eloisa PINEDA CNP Address: [address] [place] [id number]- When:Within 1 Month(s) [facility] 07-16-2023 Evaluation + Plan note Future Scheduled TestsTSH With T4fr Reflex 07/16/23Comprehensive Metabolic Panel 07/16/23Lipid Panel 07/16/23CT Chest, Low Dose Screening 07/16/23 [facility] 05-24-2021 Note Patient Outreach (IN TMMN) TONYA LAW ([id number]) 1975 F Date Time Provider Department 05/24/21 PAT VELEZ During your visit today, we recorded the following information about you: Allergies As of Date: 05/24/2021 (No Known Allergies) Date Reviewed: 10/13/2019 Reviewed by: Mirela Rivera (Claribel) CLARIBEL Means - Fully Assessed Visit Diagnosis:Encounter for screening mammogram for breast cancer [Z12.31] Order(s):CHRISTIANA SCREENING [[id number]] Order #: [id number] FUTURE Prescriptions as of 05/27/2021 - albuterol HFA (VENTOLIN HFA) 90 mcg/actuation inhaler Inhale 2 Puffs as instructed every 4 hours as needed. - predniSONE (DELTASONE) 20 mg tablet Take 2 tablets by mouth once daily. - sertraline (ZOLOFT) 50 mg tablet Take 1 tablet by mouth once daily. - loratadine (CLARITIN) 10 mg tablet TAKE 1 TABLET BY MOUTH EVERY DAY - ondansetron orally disintegrating (ZOFRAN ODT) 4 mg disintegrating tablet Take 1 tablet by mouth every 6 hours as needed. - naproxen (NAPROSYN) 500 mg tablet Take 1 tablet by mouth twice daily as needed. - fluticasone (FLONASE) 50 mcg/actuation nasal spray Use 1 [place] in each nostril once daily. Problem List As Of Date 05/24/2021 Noted Resolved Low back pain [M54.5] Levoscoliosis [M41.80] Numbness and tingling sensation of skin [R20.0,* Hip pain [M25.559] Liver lesion [K76.9] 02/03/2017 Chronic right-sided low back pain with right-si*04/15/2017 Anxiety [F41.9] 03/23/2018 Encounter Status:Closed by SNAPCARD Social[employer] on 05/27/21 [facility] Evaluation + Plan note No data available for this section [facility] Evaluation + Plan note Future Appointments Appointment Date:07/29/2023 11:45:00 AM Scheduled Provider: [facility] Appoint[facility] Type:MA Screen () Appointment Date:08/13/2023 02:20:00 PM Scheduled Provider:Eloisa PINEDA CNP Location:[facility] Appointment Type: Open Future Scheduled TestsTSH With T4fr Reflex 07/16/23Comprehensive Metabolic Panel 07/16/23Lipid Panel 07/16/23CT Chest, Low Dose Screening 07/16/23MA Mamm Screen w/CAD if perf and 3D Jovanni 07/29/23 [facility] Evaluation + Plan note Future Appointments Appointment Date:09/22/2024 10:30:00 AM Scheduled Provider: Location:[facility] Appointment Type:PC Nurse Lab Future Scheduled TestsFolate Level 09/19/24Magnesium Level 09/19/24Thyroid Antibodies 09/19/24Vitamin B12 Level 09/19/24Sedimentation Rate Automated 09/19/24anti-Thyroid Peroxidase 09/19/24MA Mammo Diagnostic Bilateral w/Dejuan 09/19/24MA Mammo Screening Bilateral w/ Dejuan 09/19/24US Breast Bilateral Complete 09/19/24US Thyroid 09/19/24 [facility] Evaluation + Plan note Future Appointments Appointment Date:10/14/2024 09:40:00 AM Scheduled Provider:MI SANTOS APRN, CNP Location:[facility] Appointment Type: OV Follow Up Future Scheduled TestsMA Mammo Diagnostic Bilateral w/Dejuan 09/19/24MA Mammo Screening Bilateral w/ Dejuan 09/19/24US Breast Bilateral Complete 09/19/24 [facility] History of Present illness Narrative TONYA LAW is making the first visit to the office to establish. 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 Pain shoots down her right arm, goes around her back and is described as burning under her shoulder blades.Pt has a history of anxiety and depression. She is currently on medication for both hydroxyzine for the anxiety and sertraline for the depression. This seems to be helping satisfactorily.Pt would like help to stop smoking.Patient states she has had a biopsy from the lump in her right breast which came back okay.Patient has had partial hysterectomy. [place] [id number] Work Phone: History of Present illness Narrative Depression: Reports taking medication as prescribed. Patient denies any side effects. Denies suicidal thoughts and attempts. Remains able to perform ADL's. Currently reporting stability in this condition.Anxiety: Patient reports her anxiety is uncontrolled. She is getting what she describes as panic attacks and they come on randomly. They are coming more frequently.Pt states she has congestion only in her right lung. This is sometimes associated with some pain substernally and she complains of severe indigestion and heartburn.She has headaches that are coming from her neck. [facility] Work Phone: Hospital Discharge instructions No data available for this section [facility] Progress note No data available for this section [facility] Reason for referral (narrative) Referred by: Eloisa PINEDA CNP Referred by: Eloisa PINEDA CNP [facility] Summary Purpose Family History No Family History Records FoundUnknown Family Member Name Dates Details Family history of chronic ob structive pulmonary disease: Mother(V17.6, Z82.5) Status:Active Family history of pancreatic cancer: Maternal Grandmother(V16.0, Z80.0) Status:Active Unknown Family Member Name Dates Details Family history of chronic ob structive pulmonary disease: Mother(V17.6, Z82.5) Status:Active Family history of pancreatic cancer: Maternal Grandmother(V16.0, Z80.0) Status:Active Unknown Family Member Name Dates Details Family history of chronic ob structive pulmonary disease: Mother(V17.6, Z82.5) Status:Active Family history of pancreatic cancer: Maternal Grandmother(V16.0, Z80.0) Status:Active Unknown Family Member Name Dates Details Family history of chronic ob structive pulmonary disease: Mother(V17.6, Z82.5) Status:Active Family history of pancreatic cancer: Maternal Grandmother(V16.0, Z80.0) Status:Active Unknown Family Member Name Dates Details Family history of chronic ob structive pulmonary disease: Mother(V17.6, Z82.5) Status:Active Family history of pancreatic cancer: Maternal Grandmother(V16.0, Z80.0) Status:Active Unknown Family Member Name Dates Details Family history of chronic ob structive pulmonary disease: Mother(V17.6, Z82.5) Status:Active Family history of pancreatic cancer: Maternal Grandmother(V16.0, Z80.0) Status:Active Unknown Family Member Name Dates Details Family history of chronic ob structive pulmonary disease: Mother(V17.6, Z82.5) Status:Active Family history of pancreatic cancer: Maternal Grandmother(V16.0, Z80.0) Status:Active Advance Directives No Advanced Directives Records FoundNo Advanced Directives Records FoundNo Advanced Directives Records FoundNo Advanced Directives Records FoundNo Advanced Directives Records FoundNo Advanced Directives Records FoundNo Advanced Directives Records FoundNo Advanced Directives Records FoundNo Advanced Directives Records FoundNo Advanced Directives Records Found Reason for Referral * Abdominal pain No data available for this section No data available for this section No data available for this section No data available for this section No data available for this section No data available for this section No data available for this section No data available for this section cutter Complaint lump in breastdepression, anxiety Additional Source Comments INFORMATION SOURCE (unrecogn ized section and content) DATE CREATED AUTHOR 04/27/2018 [facility] DATE CREATED AUTHOR AUTHOR'S ORGANIZ ATION 09/20/2019 [facility] DATE CREATED AUTHOR AUTHOR'S ORGANIZ ATION 10/13/2019 [facility] DATE CREATED AUTHOR AUTHOR'S ORGANIZ ATION 12/03/2021 [facility] DATE CREATED AUTHOR AUTHOR'S ORGANIZ ATION 12/17/2021 [facility] DATE CREATED AUTHOR AUTHOR'S ORGANIZ ATION 03/13/2022 [facility] DATE CREATED AUTHOR AUTHOR'S ORGANIZ ATION 05/29/2022 [facility] DATE CREATED AUTHOR AUTHOR'S ORGANIZ ATION 11/26/2022 [facility] DATE CREATED AUTHOR AUTHOR'S ORGANIZ ATION 06/24/2024 [facility] DATE CREATED AUTHOR AUTHOR'S ORGANIZ ATION 09/27/2024 [place] <item> Privacy Markings (unrecogniz ed section and content) Section Author: Fatemeh Pike PROHIBITION ON REDISCLOSURE OF CONFIDENTIAL INFORMATION This notice accompanies a disclosure of information concerning a client made to you with the consent of such client. Patient Care team informatio n (unrecognized section and content) Personnel Name: Eloisa PINEDA CNP [place] Address: Address: [address] [place] [address] Personnel Name: Eloisa PINEDA CNP Address: Address: [address] [place] [address] Personnel Name: Eloisa PINEDA CNP E Address: Address: [address] [place] [address] Personnel Name: Eloisa PINEDA CNP E Address: Address: [address] [place] [address] Personnel Name: Eloisa PINEDA CNP E Address: Address: [address] [place] [address] Personnel Name: Zachary PINEDA CNPey E Address: Address: [address] [place] [address] Care Team Personnel Name: MI SANTOS APRN, CNP Position: P4 Advanced Medical Affairs Specialist Member Role: Primary Care Physician Address: Address: [address] [place] [id number] Care Team Related Persons Name: CHACE LANCE Address: Home [address], [place] [id number] Address: Temporary [address], [place] [id number] Care Team Personnel Name: MI SANTOS APRN EDUCATION COORDINATOR Position: P4 Advanced Medical Affairs Specialist Member Role: Primary Care Physician Address: Address: [address] [place] [id number] Care Team Related Persons Name: CHACE LANCE Address: Home [address], [place] [id number] Address: Temporary [address], [place] [id number] Care Team Personnel Name: MI SANTOS APRN EDUCATION COORDINATOR Position: P4 Advanced Medical Affairs Specialist Member Role: Primary Care Physician Address: Address: [address] [place] [id number] Care Team Related Persons Name: CHACE LANCE Address: Home [address], [place] [id number] Address: Temporary [address], [place] [id number] FOR RECORDS PERTAINING TO PATIENTS WHO ARE OR HAVE BEEN ENROLLED IN A CHEMICAL DEPENDENCY/SUBSTANCEABUSE PROGRAM, SOME INFORMATION MAY BE OMITTED. This clinical summary was aggregated from multiple sources. Caution should be exercised in using it in the provision of clinical care. This summary normalizes information from multiple sources, and as a consequence, information in this document may materially change the coding, format and clinical context of patient data. In addition, data may be omitted in some cases. CLINICAL DECISIONS SHOULD BE BASED ON THE PRIMARY CLINICAL RECORDS. [facility] provides no warranty or guarantee of the accuracy or completeness of information in this document.
--- NOTE | 2025-04-09 17:15 | EKG12_ITS ---
Test Reason : Blood Pressure : */* mmHG Vent. Rate : 64 BPM Atrial Rate : 64 BPM P-R Int : 142 ms QRS Dur : 84 ms QT Int : 446 ms P-R-T Axes : 85 90 72 degrees QTcB Int : 460 ms Normal sinus rhythm Rightward axis Borderline ECG Confirmed by Pineda Johnson ([id number]), development editor ANN GARRISON ([id number]) on 04/10/2025 9:38:19 AM Referred By: Confirmed By: Pineda Johnson
--- NOTE | 2025-04-09 17:16 | EDS_ITS ---
HPI History of Present Illness Chief Complaint: Shortness of Breath Informant: patient Narrative Narrative: 49-year-old female states for the past week she has been having some pain lateral aspect of her lower leg and the back of her knee and radiating up her left leg/thigh and across down the other leg. She states that got better and after the past couple days she has had an area of redness that is painful on the medial left calf that is preventing her from walking because it hurts so bad to do so. She states today, when she woke up this morning and ever since, she has had lower retrosternal chest pain. At 1 point this morning she states she felt lightheaded like she was going to pass out. She felt a little short of breath during that. She denies any palpitations or racing heartbeat. She is a smoker but denies any known heart or lung problems. She takes medication for thyroid and nothing else. She denies any recent immobilization or hospitalization. No history of a DVT that she knows of. She states that the chest discomfort is mildly pleuritic when she takes a deep breath but she is not limited with regards to breathing. PFSH PFS Home Medications ?Medication ?Instructions ?Recorded ?Last Taken ?Type cephalexin 500 mg capsule 500 mg PO Q6 #40 CAPSULES Unknown Rx levothyroxine 50 mcg tablet 50 mcg PO DAILY 04/09/25 U nknown History Allergy/AdvReac Type Severity Reaction Status Date / Time No Known Allergies Allergy Verified 04/09/25 16:29 Social History Smoking Status: Current every day smoker tobacco type: cigarettes ROS ROS ED Constitutional Constitutional ED: Denies chills or fever(s) Eyes Eyes: Denies change in vision or diplopia ENT ENT ED: Denies rhinorrhea or sore throat Cardiovascular Cardiovascular: Reports chest pain and lightheadedness; Denies leg edema, palpitations or syncope Respiratory/Chest Respiratory/Chest: Reports dyspnea; Denies cough Gastrointestinal Gastrointestinal: Denies abdominal pain, diarrhea, nausea or vomiting Genitourinary Genitourinary ED: Denies dysuria or hematuria Musculoskeletal Musculoskeletal: Reports as per HPI and extremity pain; Denies back pain or neck pain Integumentary Reports rash; Denies abscess Neurologic Neurologic: Denies headache(s), paresthesias or weakness Psychiatric Psychiatric: Denies suicidal thoughts EXAM Physical Exam Const Vital Signs: 04/09/25 16:26 04/09/25 16:27 04/09/25 17:15 Temperature 97.3 F L Temperature Source Temporal Pulse Rate 87 Respiratory Rate 18 Respiratory Effort Normal Non-Labored Respiratory Depth Normal Respiratory Pattern Normal Blood Pressure 105/85 H Blood Pressure Mean 91 Pulse Ox 99 Oxygen Delivery Method Room Air Room Air 04/09/25 17:26 04/09/25 18:00 04/09/25 19:00 Temperature Temperature Source Pulse Rate 91 67 71 Respiratory Rate 21 H 16 18 Respiratory Effort Respiratory Depth Respiratory Pattern Blood Pressure 103/71 108/77 111/80 Blood Pressure Mean 81 87 90 Pulse Ox 94 98 100 Oxygen Delivery Method Room Air 04/09/25 20:00 Temperature Temperature Source Pulse Rate 67 Respiratory Rate 16 Respiratory Effort Respiratory Depth Respiratory Pattern Blood Pressure 125/72 H Blood Pressure Mean 89 Pulse Ox 98 Oxygen Delivery Method Room Air Positive well nourished and well developed General Appearance ED: well developed and NAD HEENT Reports moist mucous membranes normocephalic and atraumatic Eyes PERRL and EOMs intact bilaterally Neck full ROM and supple Chest Wall inspection of chest normal and palpation of chest normal Resp normal respiratory effort and clear to auscultation bilaterally Resp Narrative: No splinting with deep inspiration Cardio regular rate, regular rhythm and no murmurs GI non-tender and non-distended Auscultation: normoactive bowel sounds Palpation: soft Back/Spine no CVA tenderness General Back: other FROM Extremity normal to inspection Extremity Narrative: There is an area about 2 to 3 cm in diameter that is erythematous with some mild induration left medial calf, there is no lymphangitis or fluctuance/abscess, but with light palpation the patient jumps and is very tender. It is over some varicose veins. There is no distal edema. Other than this focal area there is no other calf tenderness or popliteal tenderness. Intact distal pulses. General Extremety ED: Yes tenderness; Negative for edema or pulses abnormal General Extremity: Negative for edema or pulses abnormal Neuro oriented x3, CN's II-XII intact bilaterally and no sensory deficits noted Sensorium / Orientation: awake and alert Motor Exam: strength 5/5 throughout Psych Mood & Affect: anxious Skin no wounds Skin Narrative: Erythema 2-3 cm diameter left medial calf, no associated lymphangitis or discharge/abscess. Very tender. MDM MDM MDM Narrative Medical decision making narrative: Exam is suspicious for superficial venous thrombophlebitis versus early cellulitis. She has multiple areas of varicose veins in her legs which is why am suspicious it might be a superficial venous thrombophlebitis. However the patient presents when ultrasound is not available, and given the chest discomfort she is also having, I did send a D-dimer in addition to cardiac workup, her EKG is normal and chest x-ray 2 views of my interpretation is normal radiology in agreement. Chest x-ray 2 views on my interpretation normal, her D- dimer was elevated, so we are not able to use D-dimer to rule out PE and DVT. I am at a low suspicion for both, and again she is here when I am not able to obtain an ultrasound of her leg but we did obtain a CTA of her chest, which on my interpretation is normal. Radiology in agreement, no PE nothing else acute. Her second troponin came back lower than the initial, both in the normal range, this rules out acute coronary syndrome, vital signs are normal and she is stable for discharge home. I am going to treat her empirically for cellulitis because this red area on her leg which is not an abscess is indurated and is so exquisitely tender that it may be an infection rather than a superficial venous phlebitis which is also in the differential. We are setting her up for an ultrasound of the leg in the morning to rule out clots, in the meantime I will prescribe her cephalexin and she is comfortable with that plan. Also her potassium was 2.8 so we gave her some potassium this should be repeated in the future. Lab Data Attestation: I reviewed the patient's lab results. Labs: Laboratory Results - last 24 hr 04/09/25 04/09/25 17:16 18:45 WBC 8.8 RBC 4.09 L Hgb 13.3 Hct 39.0 MCV 95.4 MCH 32.5 H MCHC 34.1 RDW Std Deviation 55.0 H RDW Coeff of Astrid 15.7 H Plt Count 239 MPV 10.8 Immature Gran % (Auto) 0.200 Neut % (Auto) 45.7 L Lymph % (Auto) 44.9 H [place] % (Auto) 6.1 Eos % (Auto) 2.6 Baso % (Auto) 0.5 Absolute Neuts (auto) 4.0 Absolute Lymphs (auto) 3.93 Nucleated RBC % 0 D-Dimer Quant (PE/DVT) 0.63 H* Sodium 138 Potassium 2.8 L Chloride 91 L Carbon Dioxide 33.0 H Anion Gap 13 BUN 8 Creatinine 1.05 Est GFR (MDRD) Non-Af 64 BUN/Creatinine Ratio 8.1 L Glucose 105 H Calcium 9.3 Troponin T High Sens 10 Troponin T Hi Sens 2 Hr 6 Radiography Diagnostic Testing: Clinical Impression(s) from Imaging Studies Chest X-Ray 04/09/25 17:19 IMPRESSION: NEGATIVE CHEST Reading Location: [facility] Chest CTA 04/09/25 18:09 IMPRESSION: NORMAL CHEST CTA. NO EVIDENCE OF ACUTE PULMONARY EMBOLISM. Reading Location: [facility] Rhythm Strip Rhythm Strip: Sinus Rhythm Rate: 65 Ectopy: None EKG Initial EKG: Attestation: I personally reviewed and interpreted this EKG as follows: Interpretation: Sinus Rhythm and No Acute Injury Pattern Comments: Nml axis & intervals; nml EKG Discharge Plan Triage Chief Complaint: Shortness of Breath ED Provider: Kashif Pabon Dx/Rx/DC Orders Clinical Impression: Pain in left lower leg, Non-cardiac chest pain, Varicose veins of left lower extremity, Acute hypokalemia Instructions: ED Cellulitis, ED Thrombophlebitis, Superficial Prescriptions: New cephalexin 500 mg capsule 500 mg PO Q6 Qty: 40 0RF No Action levothyroxine 50 mcg tablet 50 mcg PO DAILY Other Ambulatory Orders: Venous Duplex US, Unilateral (Stat) Facility: [facility] - Location: [facility] Ordered By: Dr. Kasihf Pabon Primary Care Provider: Pierre Barclay NP Referrals: Pierre Barclay [employer]VELOPE STAMPING MACHINE OPERATOR, ENVELOPE STAMPING MACHINE OPERATOR-C [Primary Care Provider] - 3-5 Days Activity Restrictions/Additional Instructions: Take daily aspirin 81mg until you follow up. Print Language: Lithuanian Disposition Disposition: Home, Self Care
--- NOTE | 2025-04-09 17:19 | RAD_ITS ---
PROCEDURE: CHEST PA AND LATERAL 04/09/2025 REASON FOR EXAM: CHEST PAIN TECHNIQUE: Frontal and lateral views of the chest. COMPARISON: Chest radiograph 12/22/20 FINDINGS: Hardware: None. Heart: The heart size is normal. Mediastinum: The mediastinal contour is stable. Lungs: No focal consolidation, pleural effusion or pneumothorax. Bones: Degenerative changes are identified within the thoracic spine. RAD/Chest PA and Lateral IMPRESSION: NEGATIVE CHEST Reading Location: [id number]
[2025-04-09 17:26] VITALS: BP 103/71; PULSE 91; RESP 21; O2SAT 94
[2025-04-09 17:26] LABS: Absolute Lymphocyte Count 3.93 X10^3/uL (0.83-4.51); Basophil# 0.04 X10^3/uL; Basophil% 0.5 % (0-1); Eosinophil# 0.23 X10^3/uL; Eosinophils% 2.6 % (0-5); Hemoglobin 13.3 g/dL (12.0-15.0); Lymphocyte # 3.93 X10^3/ul (0.83-4.51); Lymphocyte % 44.9 % (19-41); Mean Corp Hgb Conc 34.1 g/dL (32-36); Mean Corpuscular Hgb 32.5 pg (27.0-32.0); Mean Corpuscular Volume 95.4 fL (81-99); Mean Platelet Vol. 10.8 fl (6.2-12.0); Monocyte# 0.53 X10^3/uL; Monocyte% 6.1 % (0-10); NRBC Flagged by Analyzer 0 % (0-5); Neutrophil # 4.01 X10^3/uL (2.7-7.7); Neutrophil % 45.7 % (47-70); Platelet Count 239 K/mm3 (150-450); RBC Distribution Width CV 15.7 % (11.6-14.6); Red Blood Count 4.09 M/mm3 (4.2-5.4); White Blood Count 8.8 K/mm3 (4.4-11.0)
[2025-04-09] MEDS: Aspirin 81 MG TAB.CHEW 324 MG PO (17:40)
[2025-04-09 17:41] LABS: Anion Gap 13 (5-15); BUN 8 mg/dL (4-19); BUN/Creat Ratio 8.1 RATIO (10-20); Calcium,Total 9.3 mg/dL (7.6-11.0); Chloride 91 mmol/L (98-108); Creatinine, Serum 1.05 mg/dL (0.70-1.20); EST Glomerular Filtration Rate 64 (>60); Glucose 105 mg/dL (70-99); Potassium 2.8 mmol/L (3.3-5.1); Sodium Level 138 mmol/L (133-145); Troponin T High Sensitivity 10 ng/L (<=14)
[2025-04-09 17:56] LABS: D-Dimer Quantitative (DVT/PE) 0.63 FEU/ug/m (0.27-0.49)
[2025-04-09 18:00] VITALS: BP 108/77; PULSE 67; RESP 16; O2SAT 98
--- NOTE | 2025-04-09 18:09 | CT_ITS ---
PROCEDURE: CTA CHEST W/WO CONTRAST 04/09/2025 REASON FOR EXAM: CHEST PAIN, LEG PAIN, ELEVATED D-DIMER TECHNIQUE: CTA axial imaging of the chest with intravenous contrast. Coronal and Sagittal reconstruction series were provided. 3D, 3D post processing, 3D reconstructions, Maximum intensity projection (MIPs) Volume rendering and Shaded surface rendering was provided. PATIENT PREPARATION: Per protocol CONTRAST: Isovue 370 VOLUME: 100mL One or more dose reduction techniques were used (e.g., Automated exposure control, adjustment of the mA and/or kV according to patient size, use of iterative reconstruction technique). RADIATION DOSE SUMMARY: CTDlvol: 15 mGy DLP: 161 mGycm COMPARISON: Same day chest radiograph. FINDINGS: Hardware: None. Lymph nodes: No axillary, mediastinal or hilar lymphadenopathy. Heart: The heart is normal in size without pericardial effusion. Mild coronary artery and thoracic aortic calcifications. The great vessels are normal in caliber. Pulmonary Vessels: No central filling defect within the segmental or subsegmental pulmonary arteries. Lungs: The central airways are patent. Bibasilar atelectasis. No suspicious pulmonary nodule. No pleural effusion or pneumothorax. Upper Abdomen: Moderate-sized hiatal hernia. Prior cholecystectomy. Bones: Thoracic spondylosis. CT/CTA Chest W/WO Contrast IMPRESSION: NORMAL CHEST CTA. NO EVIDENCE OF ACUTE PULMONARY EMBOLISM. Reading Location: [id number]
[2025-04-09 19:00] VITALS: BP 111/80; PULSE 71; RESP 18; O2SAT 100
[2025-04-09] MEDS: Ketorolac 30 MG/ML Syringe IV (19:33)
[2025-04-09] MEDS: Cephalexin 250 MG Capsule 500 MG PO (19:33)
[2025-04-09] MEDS: Potassium Chloride Oral Tablet 20 MEQ 40 MEQ PO (19:47)
[2025-04-09 20:00] VITALS: BP 125/72; PULSE 67; RESP 16; O2SAT 98
[2025-04-09 20:10] LABS: Troponin T High Sens 2 HR 6 ng/L (<=14)
[2025-04-09 20:15] VITALS: BP 99/80; PULSE 68; RESP 16; TEMP 37; O2SAT 100
== END 2025-04-09 20:22 | disposition home or self-care (01) ==
PROVIDERS: Emergency Provider Emergency Medicine; PCP Nurse Practitioner Family; Visit Provider Emergency Medicine
DX: M79.662 Pain in left lower leg (principal); R07.89 Other chest pain; F17.210 Nicotine dependence, cigarettes, uncomplicated; R06.02 Shortness of breath; I83.92 Asymptomatic varicose veins of left lower extremity; E87.6 Hypokalemia; Z79.890 Hormone replacement therapy; L03.116 Cellulitis of left lower limb; E07.9 Disorder of thyroid, unspecified
CPT/HCPCS: 71046; 71275; 80048; 84484; 85025; 85379; 93005; 96374; 99284; Q9967; A4216

== ENCOUNTER → 2025-04-10 | Outpatient (CLI) | payer MEDICAID, SELFPAY ==
--- NOTE | 2025-04-10 15:01 | VDLE_ITS ---
Reason For Study Reason For Study: Left leg pain RIGHT LEFT CFV is compressible, spontaneous, phasic, competent GSV is normal. and demonstrates normal augmentation. CFV is compressible, spontaneous, phasic, competent, Procedure and demonstrates normal augmentation. This is a venous duplex using B-mode, color flow and FV is compressible, spontaneous, phasic, competent spectral Doppler. and demonstrates normal augmentation. Exam performed in department. POP V is compressible, spontaneous, phasic, competent Contacted [facility] [employer]PER[employer]-[facility] office, patient was dimissed and demonstrates normal augmentation. from office. Patient advised to go to ED for T/P Trunk is compressible. treatment since no PCP, patient refused and went PTV is compressible. home. LT PerV is compressible. Thrombus filled varicose vein noted in the left proximal calf. VL/Venous Duplex US, Unilateral Interpretation Summary Deep veins of the left lower extremity are patent and compressible segmentally. There is no evidence of left lower extremity deep vein thrombosis. Valvular competence appears intact within the p roximal deep venous system on the left . The left great saphenous vein appears patent and compressible segmentally. Acut e superficial thrombophlebitis is noted involving a varicosity in the left proximal calf. The right common femoral vein is patent and compressible . Ordering Physician: Kashif Pabon Performed By: Huyen Paulino RVT
== END | disposition home or self-care (01) ==
LOC: CVS 14:59
PROVIDERS: PCP Nurse Practitioner Family; Referring Provider Emergency Medicine; Visit Provider Emergency Medicine
DX: M79.605 Pain in left leg (principal)
CPT/HCPCS: 93971

== ENCOUNTER 2025-09-08 12:04 | Emergency (ER) | payer MEDICAID, SELFPAY ==
[2025-09-08 12:05] VITALS: BP 112/92; PULSE 110; RESP 18; TEMP 36.8; O2SAT 98; BMI 25.2
[2025-09-08 13:21] VITALS: BP 109/83; PULSE 94; RESP 16; TEMP 36.7; O2SAT 100
--- NOTE | 2025-09-08 14:16 | CT_ITS ---
PROCEDURE: CT/Abdomen/Pelvis W IV Cont ONLY
[2025-09-08] MEDS: 0.9% Normal Saline (1000mL) 1,000 ML 999 ML IV (14:22)
[2025-09-08 14:27] LABS: Hematocrit 37.2 % (37-47); Hemoglobin 13.1 g/dL (12.0-15.0); Immature Granulocytes Count 0.020 X10^3/uL (0.0-0.0); Mean Corp Hgb Conc 35.2 g/dL (32-36); Mean Corpuscular Volume 108.8 fL (81-99); Mean Platelet Vol. 10.3 fl (6.2-12.0); NRBC Flagged by Analyzer 0 % (0-5); Platelet Count 410 K/mm3 (150-450); RBC Distribution Width CV 13.6 % (11.6-14.6); RBC Distribution Width SD 54.4 fl (35.1-43.9); Red Blood Count 3.42 M/mm3 (4.2-5.4); White Blood Count 10.5 K/mm3 (4.4-11.0)
[2025-09-08 14:28] VITALS: BP 105/74; PULSE 85; RESP 16; TEMP 36.6; O2SAT 100
--- NOTE | 2025-09-08 14:37 | EX.ED.DYSGE1 ---
HPI History of Present Illness Chief Complaint: General Illness Narrative Narrative: Patient is a 50-year-old female who presents to the emergency department the chief complaint of abdominal pain, nausea, vomiting, diarrhea and not feeling well for the last 10 days. She states that she has pain in her bilateral lower extremities as well and states that she has a history of a blood clot however states that when inquiring about this that this was on her anterior leg and she did not require any blood thinning medications therefore have low suspicion for this and believe that this is likely a superficial venous thrombosis or thrombophlebitis. She states that she does drink 3 drinks daily my ties and has never gone through alcohol withdrawal she notes that she does have a spot on her liver but cannot tell me any other information about this. She states that she has thyroid issues and heart issues but cannot elaborate on her heart issues either. Patient states that given that this has been going on for 10 days now and she is still not feeling better she came here to be further evaluated. [facility] Home Medications ?Medication ?Instructions ?Recorded ?Last Taken ?Type cephalexin 500 mg capsule 500 mg PO Q6 #40 CAPSULES 04/09/25 Unknown Rx levothyroxine 50 mcg tablet 50 mcg PO DAILY 04/09/25 Unknown History amoxicillin 875 mg-potassium 1 tab PO Q12H 7 days #14 tabs 09/08/25 Unknown Rx clavulanate 125 mg tablet dicyclomine 20 mg tablet 20 mg PO TID PRN abdominal pain 09/08/25 Unknown Rx #20 tabs ondansetron 4 mg disintegrating 4 mg PO Q6H PRN nausea and 09/08/25 Unknown Rx tablet vomiting #20 tabs potassium chloride 20 mEq 20 meq PO BID 5 days #10 tabs 09/08/25 Unknown Rx tablet,extended release (K-Tab) Allergy/AdvReac Type Severity Reaction Status Date / Time No Known Allergies Allergy Verified 09/08/25 12:08 Social History Smoking Status: Current every day smoker tobacco type: cigarettes ROS ROS ED ROS Narrative Constitutional: Complains of chills, whole body aches and generalized not feeling well Eyes: Denies double vision Cardiovascular: Denies chest pain Respiratory: Denies coughing wheezing shortness of breath Abdomen: Complains of abdominal pain nausea vomiting diarrhea as noted above denies black stools or blood in her stool : Denies any urinary symptoms Neurological: Denies any numbness, weakness, tingling Musculoskeletal: Denies back pain Skin: Denies any rashes or lesions EXAM Physical Exam Narrative Exam Narrative: General: Patient is lying in bed did not appear to be uncomfortable overall Head: Atraumatic, normocephalic Eyes: PERRL bilaterally, EOMI bilateral, no conjunctival injection noted Neck: Soft, supple, trachea midline Cardiovascular: Regular rate and rhythm Respiratory: Clear to auscultation bilaterally Abdomen: Soft, nondistended, diffuse tenderness to palpation Extremities: +4/5 strength noted in the bilateral lower extremities, DP pulses +2/4 in the bilateral extremities Neurological: Patient follow commands that she was at [facility] years 2024 Skin: Warm, dry, intact no rashes or lesions noted Const Vital Signs: 09/08/25 12:05 09/08/25 13:17 09/08/25 13:21 Temperature 98.3 F 98.0 F Temperature Source Oral Oral Pulse Rate 110 H 94 Respiratory Rate 18 16 Respiratory Pattern Normal Blood Pressure 112/92 H 109/83 H Blood Pressure Mean 98 91 Pulse Ox 98 100 Oxygen Delivery Method Room Air Room Air 09/08/25 14:28 Temperature 97.9 F Temperature Source Temporal Pulse Rate 85 Respiratory Rate 16 Respiratory Pattern Blood Pressure 105/74 Blood Pressure Mean 84 Pulse Ox 100 Oxygen Delivery Method Room Air MDM MDM MDM Narrative Medical decision making narrative: Patient is a 50-year-old female who presents to the emergency department the chief complaint of abdominal pain nausea vomiting diarrhea. On the differential diagnose includes but limited to viral gastroenteritis, bowel obstruction, pancreatitis, diverticulitis, cholecystitis. Once workup is obtained reviewed she will be reevaluated. Patient given IV fluids, morphine and Zofran. Patient CBC reviewed and showed no evidence leukocytosis white blood count 10.5, hemoglobin stable 13.1 patient does have evidence of macrocytic anemia with MCV of 108.8, plate count of 410. Patient sodium is 138, potassium is mildly low indicating hypokalemia at 3.1 she was given 60 mill equivalents of supplementation in the emergency department. Patient creatinine normal at 0.85, AST and ALT 56 and 18 respectively total bilirubin normal at 0.72. Patient lipase normal at 43. Patient CT abdomen pelvis with IV contrast reviewed showed evidence of mild sigmoid diverticulosis with mild degree of diverticulitis patient was given a dose of Augmentin here in the emergency department. Status postcholecystectomy. Coronary artery calcification. Discussed the results with patient she is feeling better we will go home at this point time. She is vies that she needs to keep a bland diet advance as tolerated. She will give prescriptions for Bentyl, Zofran, Augmentin, potassium and was referred to gastroenterology with instructions to follow-up with them in the outpatient setting as well as her family physician. She is encouraged return if worsening symptoms or concerns. All question concerns answered she was discharged home in stable condition. Lab Data Labs: Laboratory Results - last 24 hr 09/08/25 13:29 WBC 10.5 RBC 3.42 L Hgb 13.1 Hct 37.2 MCV 108.8 H MCH 38.3 H MCHC 35.2 RDW Std Deviation 54.4 H RDW Coeff of Astrid 13.6 Plt Count 410 MPV 10.3 Immature Gran % (Auto) 0.200 Neut % (Auto) 53.5 Lymph % (Auto) 37.1 [place] % (Auto) 7.0 Eos % (Auto) 1.7 Baso % (Auto) 0.5 Absolute Neuts (auto) 5.6 Absolute Lymphs (auto) 3.88 Nucleated RBC % 0 Sodium 138 Potassium 3.1 L Chloride 97 L Carbon Dioxide 30.6 Anion Gap 11 BUN 5 Creatinine 0.85 Estim Creat Clear Calc 67.34 Est GFR (MDRD) Non-Af 83 BUN/Creatinine Ratio 5.6 L Glucose 114 H Calcium 9.4 Total Bilirubin 0.72 AST 56 H ALT 18 Alkaline Phosphatase 194 H Total Protein 6.7 Albumin 3.4 L Globulin 3.3 Albumin/Globulin Ratio 1.0 Lipase 43 Radiography Diagnostic Testing: Clinical Impression(s) from Imaging Studies Abdomen/Pelvis CT 09/08/25 14:16 IMPRESSION: Coronary artery calcification. Status post cholecystectomy. Sigmoid diverticulosis with mild degree of increased markings in the that is suggestive mild Reading Location: [id number] Discharge Plan Triage Chief Complaint: General Illness ED Provider: Sean Bradley Dx/Rx/DC Orders Clinical Impression: Diverticulitis, Abdominal pain, Nausea & vomiting, Diarrhea, Acute hypokalemia Prescriptions: New dicyclomine 20 mg tablet 20 mg PO TID PRN (Reason: abdominal pain) Qty: 20 0RF ondansetron 4 mg tablet,disintegrating 4 mg PO Q6H PRN (Reason: nausea and vomiting) Qty: 20 0RF amoxicillin-pot clavulanate 875-125 mg tablet 1 tab PO Q12H 7 Days Qty: 14 0RF potassium chloride [K-Tab] 20 mEq tablet extended release 20 meq PO BID 5 Days Qty: 10 0RF No Action levothyroxine 50 mcg tablet 50 mcg PO DAILY cephalexin 500 mg capsule 500 mg PO Q6 Qty: 40 0RF Primary Care Provider: Care Physician,No Primary Referrals: Genaro Carter DO [Med Staff - Active Staff, Gastroenterology] Care Physician,No Primary [Primary Care Provider, Medical] Milvia Garzon, SOFTWARE ENGINEER [employer] [facility]] Activity Restrictions/Additional Instructions: Your CT showed evidence of diverticulitis take the antibiotics and other prescriptions as prescribed. Follow-up with the doctors you are referred to and return with worsening symptoms or concerns. Start with a bland diet and advance as tolerated. Print Language: [place] Disposition Disposition: Home, Self Care
[2025-09-08 14:57] LABS: AST(SGOT) 56 U/L (<=31); Alanine Aminotransfer ALT/SGPT 18 U/L (<=34); Albumin, Serum 3.4 g/dL (3.5-5.0); Alkaline Phosphatase 194 U/L (35-104); Anion Gap 11 (5-15); BUN 5 mg/dL (4-19); BUN/Creat Ratio 5.6 RATIO (10-20); Calcium,Total 9.4 mg/dL (7.6-11.0); Carbon Dioxide 30.6 mmol/L (21.0-32.0); Chloride 97 mmol/L (98-108); Estimated Creatinine Clearance 67.34 ml/min (50-250); Globulin 3.3 g/dL (2.2-4.2); Glucose 114 mg/dL (70-99); Lipase 43 U/L (13-75); Potassium 3.1 mmol/L (3.3-5.1)
[2025-09-08] MEDS: Potassium Chloride Oral Tablet 20 MEQ 60 MEQ PO (15:43)
[2025-09-08 15:44] VITALS: BP 120/84; PULSE 93; RESP 16; TEMP 36.5; O2SAT 96
== END 2025-09-08 15:45 | disposition home or self-care (01) ==
PROVIDERS: Emergency Provider Emergency Medicine; Visit Provider Emergency Medicine
DX: K57.30 Diverticulosis of large intestine without perforation or abscess without bleeding (principal); I25.10 Atherosclerotic heart disease of native coronary artery without angina pectoris; E87.6 Hypokalemia; F17.210 Nicotine dependence, cigarettes, uncomplicated
CPT/HCPCS: 74177; 80053; 83690; 85025; 96361; 96374; 96375; 99283; Q9967; A4216; J2405

== ENCOUNTER → 2025-09-21 | Outpatient (CLI) | payer MEDICAID, SELFPAY ==
[2025-09-21 11:41] LABS: Hematocrit 35.0 % (37-47); Hemoglobin 12.1 g/dL (12.0-15.0); Immature Granulocytes Count 0.020 X10^3/uL (0.0-0.0); Mean Corp Hgb Conc 34.6 g/dL (32-36); Mean Corpuscular Volume 111.5 fL (81-99); Mean Platelet Vol. 9.8 fl (6.2-12.0); NRBC Flagged by Analyzer 0 % (0-5); Platelet Count 321 K/mm3 (150-450); RBC Distribution Width CV 13.3 % (11.6-14.6); RBC Distribution Width SD 54.5 fl (35.1-43.9); Red Blood Count 3.14 M/mm3 (4.2-5.4); White Blood Count 9.0 K/mm3 (4.4-11.0)
[2025-09-21 12:30] LABS: AST(SGOT) 69 U/L (<=31); Alanine Aminotransfer ALT/SGPT 24 U/L (<=34); Albumin, Serum 3.2 g/dL (3.5-5.0); Alkaline Phosphatase 171 U/L (35-104); Anion Gap 11 (5-15); BUN 8 mg/dL (4-19); BUN/Creat Ratio 8.8 RATIO (10-20); Calcium,Total 9.1 mg/dL (7.6-11.0); Carbon Dioxide 26.0 mmol/L (21.0-32.0); Chloride 104 mmol/L (98-108); Globulin 2.9 g/dL (2.2-4.2); Glucose 115 mg/dL (70-99); Potassium 4.2 mmol/L (3.3-5.1)
== END | disposition home or self-care (01) ==
DX: Z13.6 Encounter for screening for cardiovascular disorders (principal); Z13.1 Encounter for screening for diabetes mellitus; K57.92 Diverticulitis of intestine, part unspecified, without perforation or abscess without bleeding
CPT/HCPCS: 36415; 80053; 83036; 84443; 85025

== ENCOUNTER → 2025-10-11 | Outpatient (CLI) | payer MEDICAID, SELFPAY ==
--- NOTE | 2025-10-11 07:57 | US_ITS ---
PROCEDURE: ABD LIMITED W/ ELASTOGRAPHY REASON FOR EXAM: FATTY LIVER COMPARISON: Prior CT scan of the abdomen and pelvis dated September 08, 2025. TECHNIQUE: Procedure Code: [id number] Modality: US Procedure: ABD LIMITED W/ ELASTOGRAPHY Right upper quadrant abdominal ultrasound. [employer] ElastQ Imaging shear wave elastography for non-invasive assessment of liver tissue stiffness. Ramy EPIQ Elite. FINDINGS: LIVER: Size: Unremarkable Length: 15.9 cm Echotexture: Diffusely echogenic suggesting fatty infiltration Contour: Normal Lesions: None identified Elastography: EQI Med: 6.5 kPa EQI Med [place]: 1.47 m/s IQR/Med: 20 %* GALLBLADDER: Surgically absent. COMMON BILE DUCT: Post-cholecystectomy the common bile duct is within normal limits measuring 7 mm . PANCREAS: Normal Visualized portions of the right kidney are unremarkable. No right upper quadrant ascites. US/ABD Limited w/ Elastography IMPRESSION: Fatty infiltration of the liver. [id number] hepatic fibrosis. Status post cholecystectomy. Reference Values: SRU <1.37 m/s (5.7kPa): No to mild fibrosis 1.37 m/s - 2.2 m/s: Moderate to severe fibrosis >2.2 m/s (15kPa): Significant fibrosis / cirrhosis METAVIR Score F2 or higher: 1.34 m/s (5.7kPa) F3 or higher: 1.55 m/s (7.3kPa) F4: 1.80 m/s (10kPa) * If the IQR/Med is >30%, the variance in the measurements is a large and the a ccuracy of the measurement may be in question. Reading Location: [place] [id number]
== END | disposition home or self-care (01) ==
DX: K76.0 Fatty (change of) liver, not elsewhere classified (principal)
CPT/HCPCS: 76705; 76981